=== PATIENT | male | born 1960 | race Caucasian/White ===

== ENCOUNTER 2025-08-25 02:48 | Inpatient (IN) | payer OTHER, SELFPAY ==
[2025-08-25] VITALS (95 sets, daily range): BP systolic 128–240; BP diastolic 74–141; PULSE 70–113; RESP 16–37; TEMP 36.7–37.5; O2SAT 83–100; BMI 26.4
--- NOTE | ~2025-08-25 | US_ITS ---
EXAMINATION: US perc cholecystostomy w imag DATE: 08/27/2025 12:47 INDICATION: Acute cholecystitis TECHNIQUE: The procedure including the risks and benefits was discussed with the patient. Risks discussed included bleeding including hemorrhage and bile peritonitis. Oral and written consent were obtained. The patient was confirmed to be receiving appropriate antibiotic coverage. The skin overlying the liver and gallbladder was prepped and draped in usual sterile fashion. Anesthetic was administered with 1% lidocaine subcutaneously. Conscious sedation was provided by the anesthesiology service. An 8.5 Fr catheter was inserted through liver parenchyma into the gallbladder by trocar technique. The metal stiffener and trocar needle were removed, and the pigtail tip was locked. Bile was aspirated and sent for culture. The catheter was stitched to the skin with suture. There were no immediate complications. FINDINGS: The gallbladder is dilated with wall thickening and stones and sludge, consistent with acute cholecystitis. Ultrasound images demonstrate the catheter within the gallbladder. 50 mL bile was aspirated. Final images show the formed pigtail catheter tip in the gallbladder. IMPRESSION: 1. Successful ultrasound-guided cholecystostomy tube placement. 2. 50 mL bile was sent for aerobic, anaerobic, and fungal cultures. 3. The catheter will be managed by Dr. Preston. A catheter cholangiogram may be performed not less than 48 hours after tube placement if clinically indicated to assess cystic duct patency. If cholecystectomy is not eventually performed and the infectious episode has resolved, the tube may be removed over a guidewire, preferably not less than 3 weeks after placement to allow time for a mature catheter tract to form to prevent bile leakage and peritonitis. Reviewed, dictated and finalized at location A. [employer]PA[employer] MAINTENANCE SUPERVISOR IMPRESSION: 1. Successful ultrasound-guided cholecystostomy tube placement. 2. 50 mL bile was sent for aerobic, anaerobic, and fungal cultures. 3. The catheter will be managed by Dr. Preston. A catheter cholangiogram may be p erformed not less than 48 hours after tube placement if clinically indicated to assess cystic duct patency. If cholecystectomy is not eventually performed an d the infectious episode has resolved, the tube may be removed over a guidewire , preferably not less than 3 weeks after placement to allow time for a mature c atheter tract to form to prevent bile leakage and peritonitis.
--- NOTE | ~2025-08-25 | XR_ITS ---
Examination: XR chest 1V portable Clinical History: abdominal pain Comparison: None Technique: Portable AP Findings: Cardiomegaly. Lungs clear. No acute bony abnormality. IMPRESSION: 1. No acute cardiopulmonary findings given portable technique. Reviewed, dictated and finalized at location R. Y MOBILE EQUIPMENT OPERATOR
--- NOTE | ~2025-08-25 | CT_ITS ---
CTA abdomen pelvis Clinical History: abdominal pain Technique: Helical images lung bases to pelvic outlet IV contrast information not listed in PACS Coronal, sagittal reformats. Multiplanar MIPS CT images acquired with automatic exposure control for dose reduction DLP: 501 mGy-cm Comparison: None Findings: CTA Findings: Abdominal aorta: No aneurysm or dissection. Common iliac arteries: Patent. External iliac arteries: Patent. Hypogastric arteries: Patent. CFAs: Patent. Proximal visualized SFAs and profundas: Patent. Celiac: Patent. SMA: Patent. BRENT: Patent. Renal arteries: Patent. Non-CTA findings: Lung bases: Clear. Visualized heart and pericardium: Enlarged. Liver: Steatosis. Gallbladder: Stones. Wall thickening. Spleen: Enlarged. Pancreas: Unremarkable. Adrenal glands: Unremarkable. Kidneys: Right kidney- No renal stones. No hydronephrosis. Left kidney- No renal stones. No hydronephrosis. Distal esophagus/stomach: Hiatal hernia. Apparent gastric wall thickening but under distended. Small bowel loops: Normal caliber and wall thickness. Fluid-filled loops, a few air-fluid levels. Colon: Rectal anastomotic line. Apparent areas of wall thickening but under distended. Normal RLQ appendix. Nodes: No enlarged nodes. Peritoneum: Small perihepatic ascites. No free air. Urinary bladder: Unremarkable. Prostate: Unremarkable. Bones: No acute bony abnormality. Soft tissues: Small umbilical hernia containing knuckle of small bowel. Small supraumbilical ventral hernia containing fat. IMPRESSION: 1. Worrisome for acute cholecystitis. 2. Suspect enterocolitis. 3. Suspect gastritis. 4. No evidence of active bleed. Reviewed, dictated and finalized at location R. CLOTHIER
--- NOTE | ~2025-08-25 | US_ITS ---
ULTRASOUND ABDOMEN LIMITED (RIGHT UPPER QUADRANT) Clinical History: cholecystitis Comparison: CTA abdomen and pelvis same day Technique: Right upper quadrant sonography Findings: Liver: Normal size. Normal echotexture. No intrahepatic biliary ductal dilatation. Normal hepatopedal flow main portal vein. Common Duct: Normal caliber. 5 mm. Gallbladder: Stones. Wall thickening. Pericholecystic fluid. Positive sonographic Mullins sign. Pancreas: Obscured by bowel gas. IMPRESSION: 1. Consistent with acute cholecystitis. Reviewed, dictated and finalized at location R. H WASHER
--- NOTE | 2025-08-25 03:40 | ECG_ITS ---
Test Date: 2025-08-25 04:27:52 Measurements Intervals [place] Rate: 103 P: 28 [place]: 151 QRS: 11 QRSD: 85 T: 62 QT: 324 QTc: 426 Interpretive Statements SINUS TACHYCARDIA CONSIDER ANTERIOR INFARCT, AGE INDETERMINATE BASELINE ARTIFACT- I, III, AVR, AVL, AVF, V4-V6 ABNORMAL ECG No previous ECG available for comparison Electronically Signed On 08-25-2025 06:06:58 SLP by Zach Pizarro D.O.
[2025-08-25 04:48] LABS: Hematocrit 54.9 % (42.0-52.0); Hemoglobin 19.9 g/dL (14.0-18.0); Immature Granulocyte Percent A 0.6 % (0-0.5); Immature Platelet Fraction Pct 1.5 % (0.9-11.2); Lymphocytes Absolute Auto 0.53 K/mm3 (0.9-3.2); Mean Corpuscular HGB Conc 36.2 g/dl (32-36); Mean Corpuscular Hemoglobin 32.0 pg (26-34); Mean Corpuscular Volume 88.4 fl (80-100); Nucleated Red Blood Cells Absolute Auto 0.000 K/mm3 (0.0-0.012); Nucleated Red Blood Cells Perc 0.0 % (0.0-0.2); Platelet Count Result 135 k/mm3 (150-375); Red Blood Count 6.21 M/mm3 (4.6-6.20); White Blood Count 6.6 K/mm3 (4.5-10.0)
[2025-08-25 04:57] LABS: Add Urine Microscopic? YES; Appearance Urine Clear (Clear); Glucose Urine UA Negative (Negative); Leukocyte Esterase Ur Negative LEU/UL (Negative); Nitrate Urine Negative (Negative); Non Pathogenic Casts 0-2; Specific Grav Ur 1.009 (1.001-1.035)
[2025-08-25 04:58] LABS: INR 1.0; Prothrombin Time 13.4 Seconds (11.1-14.7)
[2025-08-25 04:59] LABS: Partial Thromboplastin Time 27.9 Seconds (22.3-36.8)
[2025-08-25 05:02] LABS: Alanine Aminotransferase 28 U/L (6-50); Albumin Level 4.8 g/dL (3.5-5.1); Alkaline Phosphatase 110 U/L (38-126); Anion Gap 7 mmol/L (4-12); Aspartate Amino Transferase 35 U/L (17-59); Bilirubin,Total 4.3 mg/dL (0.2-1.3); Blood Urea Nitrogen 8 mg/dL (9-20); CRP 4.0 mg/dL (<1.0); Calcium 9.6 mg/dL (8.4-10.2); Carbon Dioxide 29 mmol/L (22-30); Chloride 96 mmol/L (98-107); Estimated Glomerular Filt Rate > 60; Glucose 118 mg/dL (65-110); Lipase 76 U/L (23-300); Magnesium 2.1 mg/dL (1.6-2.3); Potassium 4.4 mmol/L (3.4-5.0); Sodium 132 mmol/L (137-145); Total Protein 8.6 g/dL (6.3-8.2)
--- NOTE | 2025-08-25 05:29 | ED_ITS ---
HPI - Abdominal Pain General Chief Complaint: Abdominal Pain Stated Complaint: abd pain Time Seen by Provider: 08/25/25 05:19 Source: patient and family Mode of arrival: ambulatory Limitations: no limitations History of Present Illness HPI narrative: Patient is a 65-year-old male presents to the emergency department complaining of abdominal pain. Patient notes that the pain started yesterday around noon, about 1 hour after eating, right upper quadrant, constant, squeezing, radiates towards his back, has maybe a similar history of this in the past, was told was due to drinking. Has some diarrhea yesterday that is resolved today. Admits to nausea without any vomiting. Notes that he drinks about 12 beers daily. Admits to not drinking in the past and denies history of alcohol withdrawal. Notes that he has been taking e.d. pills for the past 3 days and has not taken his blood pressure medications for the past 3 days due to that and his blood pressures has been high. Denies any known fevers. Related Data Home Medications ?Medication ?Instructions ?Recorded ?Confirmed ?Last Taken ?Type losartan 100 mg tablet 100 mg PO DAILY 08/25/2505/12 Unknown History tadalafil 10 mg tablet (Cialis) 10 mg PO DAILY PRN sex ual activity 08/25/25 08/25/25 Unknown History Allergies Allergy/AdvReac Type Severity Reaction Status Date / Time No Known Allergies Allergy Verified 08/25/25 04:38 Review of Systems 2 Review of Systems: A 10 system review of systems was completed on the patient and is negative except for what is stated in the HPI. Nursing and ancillary documentation was reviewed. Exam 2 Narrative: CONST: No acute distress. Well nourished. HENMT: Head is normocephalic and atraumatic. Tacky mucous membranes. No posterior oropharynx erythema. EYES: No scleral icterus. No conjunctival injection or pallor. PERRL. NECK: No meningeal signs. RESP: Able to speak in full sentences. Normal respiratory effort. CTAB. CARDIO: Regular rate. Regular rhythm. 2+ DP and radial pulses bilaterally. GI: Nondistended. Moderate tenderness to palpation in the right upper quadrant, positive Mullins sign. No rebound or guarding or rigidity. Abdominal surgical scars.. Soft. : No CVA tenderness to palpation. SKIN: No rashes or lesions noted on exposed skin. NEURO: Oriented x3. Moves all extremities. No tremors. EXTREM/MSK/BACK: No pedal edema. PSYCH: Normal affect. Course Vital Signs Vital signs: Vital Signs Pulse Rate 107 H 08/25/25 04:24 Respiratory Rate 33 H 08/25/25 04:24 Pulse Oximetry 99 08/25/25 04:24 Temperature 98.0 F 08/25/25 04:34 Pulse Rate 100 08/25/25 07:20 Respiratory Rate 17 08/25/25 07:20 Blood Pressure 177/109 H 08/25/25 07:20 Pulse Oximetry 98 08/25/25 07:20 Oxygen Delivery Room Air 08/25/25 07:20 [facility] Narrative Medical decision making narrative: Patient presents with the above complaint. Initial vitals are remarkable for elevated blood pressure, tachycardia, tachypnea. Physical examination as noted above. Plan discussed: laboratory analysis, EKG, imaging. Patient ordered IVF, colonic on a phenobarbital, labetalol, Protonix, Zofran, continuous cardiac monitoring, continuous pulse oximetry. [facility] protocol ordered. NPO. I spoke with the hospitalist on-call who has accepted the patient for admission. I spoke with General surgery on-call who agrees with plan of care for antibiotics, admit to the hospitalist, will see the patient in consultation. I spoke with Gastroenterology on-call who will see the patient in consultation. Differential Diagnosis Differential Diagnosis: Cholecystitis, hepatobiliary pathology, pancreatitis, UTI, ureterolithiasis, bowel obstruction, mesenteric ischemia, AAA, ischemic colitis, enteritis, colitis, ACS, alcohol withdrawal, medication noncompliance. Lab Data [facility] Lab Attestation statement: I personally reviewed the patient's lab results. Lab results narrative: CBC reveals a hemoglobin of 19.9, platelet count 135. Coags are within normal limits. Comprehensive metabolic panel reveals a sodium 132, chloride 96, BUN of 8, glucose 118, total bilirubin of 4.3 with total protein of 8.6. Lipase is 76. Magnesium is 2.1. Lactic acid 1.7. Urinalysis reveals 2+ protein, 1+ ketones. Ethyl alcohol level is less than 10. 08/25/25 04:30 08/25/25 04:30 Labs: Lab Results 08/25/25 08/25/25 Range/Units 04:30 07:22 WBC 6.6 (4.5-10.0) K/mm3 RBC 6.21 H (4.6-6.20) M/mm3 Hgb 19.9 H (14.0-18.0) g/dL Hct 54.9 H (42.0-52.0) % MCV 88.4 (80-100) fl MCH 32.0 (26-34) pg MCHC 36.2 H (32-36) g/dl RDW 11.7 (11.5-14.5) % Plt Count 135 L (150-375) k/mm3 MPV 8.4 (7.4-10.4) fl Immature Gran % (Auto) 0.6 H (0-0.5) % Neut % (Auto) 84.9 H (45.5-73.1) % Lymph % (Auto) 8.0 L (18.3-44.2) % [place] % (Auto) 6.0 (2.6-8.5) % Eos % (Auto) 0.2 (0-4.4) % Baso % (Auto) 0.3 (0.2-1.2) % Lymph # (Auto) 0.53 L (0.9-3.2) K/mm3 [place] # (Auto) 0.4 (0.1-0.6) K/mm3 Eos # (Auto) 0.0 (0-0.3) K/mm3 Baso # (Auto) 0.0 (0.0-0.1) K/mm3 Abs Immat Gran (auto) 0.04 H (0.00-0.031) K/mm3 Absolute Neuts (auto) 5.6 (1.3-6.7) K/mm3 Absolute Nucleated RBC 0.000 (0.0-0.012) K/mm3 Nucleated RBC % 0.0 (0.0-0.2) % % Immature Plt Fraction 1.5 (0.9-11.2) % PT 13.4 (11.1-14.7) Seconds INR 1.0 APTT 27.9 (22.3-36.8) Seconds Sodium 132 L (137-145) mmol/L Potassium 4.4 (3.4-5.0) mmol/L Chloride 96 L (98-107) mmol/L Carbon Dioxide 29 (22-30) mmol/L Anion Gap 7 (4-12) mmol/L BUN 8 L (9-20) mg/dL Creatinine 1.11 (0.7-1.3) mg/dL Estim Creat Clear Calc Not Reportable Estimated GFR > 60 (59 - ) Glucose 118 H (65-110) mg/dL Lactic Acid 1.7 (0.7-2.0) mmol/L Calcium 9.6 (8.4-10.2) mg/dL Magnesium 2.1 (1.6-2.3) mg/dL Total Bilirubin 4.3 H (0.2-1.3) mg/dL AST 35 (17-59) U/L ALT 28 (6-50) U/L Alkaline Phosphatase 110 (38-126) U/L Troponin I 0.023 Pending (0.000-0.034) ng/mL C-Reactive Protein 4.0 H (<1.0) mg/dL Total Protein 8.6 H (6.3-8.2) g/dL Albumin 4.8 (3.5-5.1) g/dL Lipase 76 (23-300) U/L Urine Color Yellow (Yellow) Urine Appearance Clear (Clear) Urine pH 7.0 (5.0-9.0) Ur Specific [place] 1.009 (1.001-1.035) Urine Protein 2+ H (Negative) mg/dL Urine Glucose (UA) Negative (Negative) mg/dL Urine Ketones 1+ H (Negative) mg/dL Ur Blood (Man) Trace (Negative) Urine Nitrate Negative (Negative) Urine Bilirubin Negative (Negative) Urine Urobilinogen 0.2 (<2.0) mg/dL Leukocyte Esterase Rfl Negative (Negative) TOMASA/UL Urine RBC 0-2 (0-2) /hpf Urine WBC 0-5 (0-3) /hpf Ur Squamous Epith Cells None seen (Few) /hpf Urine Bacteria None seen /hpf Urine Casts 0-2 Ethyl Alcohol < 10 (<10) mg/dL Imaging Data Radiologist's impression: ITS Impressions Abdomen/Pelvis CTA 08/25/25 06:38 IMPRESSION: 1. Worrisome for acute cholecystitis. 2. Suspect enterocolitis. 3. Suspect gastritis. 4. No evidence of active bleed. Chest X-Ray 08/25/25 07:06 IMPRESSION: 1. No acute cardiopulmonary findings given portable technique. ECG Data EKG #1: Attestation: I personally reviewed and interpreted this ECG as follows: ECG completion date: 08/25/25 ECG completion time: 04:27 Interpretation: Rate of 103, rhythm is sinus tachycardia, axis is normal, Q-waves present in leads V1, V2, V3, no old EKG on file comparison. Discharge Plan Discharge Clinical Impression: Acute cholecystitis, Abdominal pain, Alcohol use disorder, Enterocolitis, Elevated bilirubin Patient Disposition: Still a Patient Condition: Stable Instructions: Antibiotic Form Patient Language: Amharic Prescriptions: No Action losartan 100 mg tablet 100 mg PO DAILY tadalafil [Cialis] 10 mg tablet 10 mg PO DAILY PRN (Reason: sexual activity) Rx Instructions: administer approximately 30min before sexual activity; do not use more than 1 dose per 24hrs Follow-up/Referrals: UNKNOWN,DOCTOR [Non-Staff] Time of Disposition: 07:53
[2025-08-25] MEDS: SODIUM CHLORIDE 0.9% IV 1,000 ML 150 ML IV CONT (05:54)
[2025-08-25] MEDS: PHENobarbitaL sodium (*CRX) 130 MG/ML VIAL 100 MG IV PUSH (05:56)
[2025-08-25] MEDS: HYDROmorphone HCL INJ (*CRX) 1 MG/ML SYR 0.2 MG IV PUSH (05:56)
[2025-08-25] MEDS: ONDANSETRON INJ 4 MG/2 ML VIAL IV PUSH (05:56)
[2025-08-25] MEDS: PANTOPRAZOLE SODIUM IV 40 MG VIAL IV PUSH ×2 (05:57→20:36)
--- NOTE | 2025-08-25 06:59 | PC.NURSE ---
Patient states I feel pretty good right now. ERP states can hold off on pain meds until patient needs them and to continue IV fluids at controlled rate via pump.
--- NOTE | 2025-08-25 07:06 | ECG_ITS ---
Test Date: 2025-08-25 07:12:48 Measurements Intervals [place] Rate: 81 P: 7 [place]: 150 QRS: -11 QRSD: 93 T: 62 QT: 365 QTc: 426 Interpretive Statements SINUS RHYTHM POSSIBLE ANTERIOR MYOCARDIAL INFARCTION , OF INDETERMINATE AGE INFERIOR INFARCT, AGE INDETERMINATE BASELINE ARTIFACT- I, II, AVR, AVL, AVF, V1 ABNORMAL ECG Compared to ECG 08/25/2025 04:27:52 HEART RATE HAS DECREASED Electronically Signed On 08-25-2025 07:51:56 [employer] by Zach Pizarro D.O.
[2025-08-25 07:19] LABS: Troponin I 0.023 ng/mL (0.000-0.034)
[2025-08-25 08:15] LABS: Troponin I 0.030 ng/mL (0.000-0.034)
[2025-08-25] MEDS: cefTRIAXone 1 GM in SODIUM CHLORIDE 0.9% IV 50 ML 100 ML IVPB (08:17)
--- NOTE | 2025-08-25 08:26 | P.CONGI_ITS ---
Assessment and Plan Assessment and plan (1) Abdominal pain: Qualifiers: Abdominal location: right upper quadrant Qualified Code(s): R10.11 - Right upper quadrant pain Code(s): R10.9 - Unspecified abdominal pain Status: Acute (2) Acute cholecystitis: Code(s): K81.0 - Acute cholecystitis Status: Acute (3) Enterocolitis: Code(s): K52.9 - Noninfective gastroenteritis and colitis, unspecified Status: Acute (4) Elevated bilirubin: Code(s): R17 - Unspecified jaundice Status: Acute (5) Alcohol use disorder: Code(s): F10.90 - Alcohol use, unspecified, uncomplicated Status: Acute (6) Thrombocytopenia: Code(s): D69.6 - Thrombocytopenia, unspecified Status: Acute (7) History of bowel resection: Code(s): Z90.49 - Acquired absence of other specified parts of digestive tract Status: Acute (8) Nausea: Code(s): R11.0 - Nausea Status: Acute (9) Hypertension: Qualifiers: Hypertension type: primary hypertension Qualified Code(s): I10 - Essential (primary) hypertension Code(s): I10 - Essential (primary) hypertension Status: Acute (10) Hepatic steatosis: Code(s): K76.0 - Fatty (change of) liver, not elsewhere classified Status: Acute Plan 1. RUQ pain/nausea/abnormal imaging digestive/gastritis/cholecystitis/cholelithiasis: Per patient last EGD > 10 years ago, endoscopy reports not available. CTA shows gallbladder stones and wall thickening and apparent gastric wall thickening but under distended. Patient states that he was told that he had gallstones a few years ago at which time a possible cholecystectomy was discussed but not performed. Patient with acute onset of right upper quadrant pain since yesterday. He describes the pain as sharp and colicky in nature. This pain increases with deep breaths or any type of movement. When pain is more severe he has nausea but no vomiting. Denies any swallowing difficulty reflux, appetite loss or weight loss prior to ER presentation. Patient uses Tylenol and Motrin alternated on a daily basis which she has done for many years. LFTs are normal except bilirubin at 4.3. DDX: Cholecystitis versus choledocholithiasis versus biliary colic versus peptic ulcer disease versus acute infectious/inflammatory process. * Given clinical presentation there is high suspicion for acute cholecystitis * Surgery already consulted for evaluation and recommendations for possible cholecystitis. Given his pain I am unsure if he would be able to tolerate a RUQ ultrasound may also consider MRCP. Will wait to see what surgeries recommendations are before proceeding with any additional imaging. * Primary care team to continue supportive care with pain management and antiemetics * Will start PPI daily for possible gastritis noted on imaging and EtOH abuse history. Findings however could be related to under distension * If not done during admission, recommend outpatient EGD * On antibiotics, continue 2. Enterocolitis/diarrhea/history of partial bowel resection: Per patient last colonoscopy > 20 years ago. He states that he had a partial bowel resection removing around 6 in in 2008 complicated diverticulitis. He states that he typically has daily bowel movements that are formed and non urgent but yesterday he had diarrhea, no BMs since ER presentation. CTA shows possible enterocolitis showing normal caliber and wall thickness and fluid-filled loops. DDX: Acute infectious/inflammatory process versus underdistention less likely inflammatory bowel disease. * Patient is already on antibiotics, continue * continue to monitor 3. Hepatic steatosis/elevated bilirubin/ETOH abuse/hyponatremia: Patient with a longstanding history of EtOH abuse stating that he typically drinks 10 12 oz beers daily and has been doing this for many years. LFTs normal except bilirubin at 4.3. WBC 7, HGB 20, HCT 55, MCV 88, platelets 135 and INR 1.0. Albumin 4.8, lipase 76 and CRP 4.0. Sodium 132, potassium 4.4, BUN 8, creatinine 1.11. ETOH level on admission < 10. CTA shows hepatic steatosis and small perihepatic ascites. Patient does not have any significant abdominal distension on exam. Mild jaundice scleral icterus. No obvious biliary or hepatic ductal dilation on imaging. DDX: ETOH abuse versus biliary obstruction versus Gilbert's versus underlying liver disease. * Continue to monitor LFT's * will check direct and indirect bilirubin * alcohol cessation strongly recommended * Further liver workup/monitoring to be done outpatient * Recommend see well precaution * Primary care team to continue monitoring electrolytes and correct as needed 4. Hypertension: Patient with a history of hypertension and was on losartan but states that he had not been taking it for few days as his blood pressure was ?doing okay?. He was recently prescribed Cialis which he had taken for 3 days prior to his admission. Patient with significant hypertension, at time of ER presentation BP was 236/129 and currently 191/112. * Primary care team to manage/treat Thank you very much for allowing me to share in the care of this very nice patient. This report may have been done utilizing a voice recognition system. Attempts have been made to correct errors. However, there may be uncorrected grammatical, spelling, and recognition errors present. GI Consult Note Consult date/time: 08/25/25 08:26 Reason for consult: Enterocolitis and elevated bilirubin HPI: Cristhian Marin Jr is a 65 year old male with PMSH of hypertension, partial bowel resection in 2008 secondary to diverticulitis, ETOH abuse, and ED but denies any other medical history. He was accompanied by his Jayna at his bedside throughout the entire visit. Patient states that yesterday he started having an acute onset of right upper quadrant pain that is sharp and severe at times. This pain presents and waves and is worse when he takes a deep breath or moves in any way. This pain can sometimes cause nausea but no vomiting. He denies any abdominal bloating, odynophagia, dysphagia, reflux, regurgitation, early satiety, appetite or weight loss prior to admission. Patient states that he typically has daily bowel movements that are formed non urgent but states that yesterday he was having some diarrhea. Denies constipation, hematochezia or melena. Patient alternates Motrin and Tylenol daily. He denies any other NSAID, aspirin, or anticoagulant use. He is a past smoker that quit many years ago and denies marijuana use but drinks on average 10 12 oz beers daily. Family history negative for CRC or IBD. ENDOSCOPY HISTORY: EGD: Per patient last EGD > 10 years ago was performed for dysphagia, results unknown COLONOSCOPY: Per patient last colonoscopy performed > 20 years ago LABS AND STOOL STUDIES: Labs 08/25/2025: Sodium 132, potassium 4.4, BUN 8, creatinine 1.11, GFR >60, calcium 9.6, lactic acid 1.7, magnesium 2.1 WBC 7, Hgb 20, Hct 55, MCV 88, platelets 135, INR 1.0 Total bilirubin 4.3, AST 35, ALT 28, Alkaline Phos 110, albumin 4.8, lipase 76 CRP 4.0, ETOH <10 IMAGING: CTA abd/pelvis 08/25/2025: IMPRESSION: 1. Worrisome for acute cholecystitis. 2. Suspect enterocolitis. 3. Suspect gastritis. 4. No evidence of active bleed. Also mentioned in body of report: small perihepatic ascites and hepatic steatosis Meds Home Medications and Allergies Home Medications ?Medication ?Instructions ?Recorded ?Confirmed ?Type losartan 100 mg tablet 100 mg PO DAILY 08/25/2505/12 History tadalafil 10 mg tablet (Cialis) 10 mg PO DAILY PRN sex ual activity 08/25/25 08/25/25 History Allergies Allergy/AdvReac Type Severity Reaction Status Date / Time No Known Allergies Allergy Verified 08/25/25 04:38 Vital Signs Vital Signs - 24 hr 08/25/25 04:24 08/25/25 04:25 08/25/25 04:30 Temperature Pulse Rate 107 H 109 H 102 H Respiratory Rate 33 H 21 H 24 H Blood Pressure 236/129 H Pulse Oximetry 99 99 98 Oxygen Delivery 08/25/25 04:31 08/25/25 04:34 08/25/25 04:45 Temperature 98.0 F Pulse Rate 113 H 70 87 Respiratory Rate 23 H 18 31 H Blood Pressure 231/141 H 231/110 H Pulse Oximetry 100 95 97 Oxygen Delivery Room Air 08/25/25 05:00 08/25/25 05:01 08/25/25 05:15 Temperature Pulse Rate 93 99 99 Respiratory Rate 25 H 23 H 29 H Blood Pressure 240/128 H Pulse Oximetry 98 100 Oxygen Delivery 08/25/25 05:30 08/25/25 05:32 08/25/25 05:45 Temperature Pulse Rate 95 102 H 95 Respiratory Rate 16 24 H 37 H Blood Pressure 222/139 H Pulse Oximetry 100 97 99 Oxygen Delivery 08/25/25 06:21 08/25/25 06:22 08/25/25 06:42 Temperature Pulse Rate 95 94 Respiratory Rate 30 H 31 H Blood Pressure 166/108 H 177/99 H Pulse Oximetry 98 97 Oxygen Delivery 08/25/25 07:20 08/25/25 08:19 Temperature 99 F Pulse Rate 100 89 Respiratory Rate 17 18 Blood Pressure 177/109 H 191/112 H Pulse Oximetry 98 98 Oxygen Delivery Room Air Results Labs 08/25/25 04:30 08/25/25 04:30 Labs: Short CBC 08/25/25 Range/Units 04:30 WBC 6.6 (4.5-10.0) K/mm3 Hgb 19.9 H (14.0-18.0) g/dL Hct 54.9 H (42.0-52.0) % Plt Count 135 L (150-375) k/mm3 BMP 08/25/25 04:30 Sodium 132 L Potassium 4.4 Chloride 96 L Carbon Dioxide 29 BUN 8 L Creatinine 1.11 Glucose 118 H Calcium 9.6 Cardiac Enzymes 08/25/25 08/25/25 Range/Units 04:30 07:22 Troponin I 0.023 0.030 D (0.000-0.034) ng/mL Liver Function 08/25/25 Range/Units 04:30 Total Bilirubin 4.3 H (0.2-1.3) mg/dL AST 35 (17-59) U/L ALT 28 (6-50) U/L Alkaline Phosphatase 110 (38-126) U/L Albumin 4.8 (3.5-5.1) g/dL Urine 08/25/25 Range/Units 04:30 Urine Color Yellow (Yellow) Urine Appearance Clear (Clear) Urine pH 7.0 (5.0-9.0) Ur Specific [place] 1.009 (1.001-1.035) Urine Protein 2+ H (Negative) mg/dL Urine Glucose (UA) Negative (Negative) mg/dL
[2025-08-25] MEDS: HYDROmorphone HCL INJ (*CRX) 1 MG/ML SYR 0.5 MG IV PUSH ×3 (10:11→21:14)
[2025-08-25] MEDS: metroNIDAZOLE 500 MG/ISO 100ML 500 MG/100 ML BAG 100 MG IVPB ×2 (10:56→19:00)
--- NOTE | 2025-08-25 12:04 | ADMGEN ---
This patient, Cristhian Marin Jr, was admitted to Virtual IMU Bed. Patient/family oriented to hospital policies and general routines including ID bracelet, bed and alarms, visiting hours, pain management, procedures, bathroom and other care routines, personal items, smoking policy, room service/diet, and visiting hours. Information on how to activate the Rapid Response Team has been discussed. Patient/Family are encouraged to report perceived risks to care and to ask questions if they do not understand what they are told or what they should do.
[2025-08-25] MEDS: diazePAM INJ (*CRX) 10 MG/2 ML SYRINGE IV PUSH ×2 (12:28→18:24)
--- NOTE | 2025-08-25 14:17 | P.CONGS_ITS ---
Assessment and Plan Assessment and plan (1) Acute cholecystitis: Code(s): K81.0 - Acute cholecystitis Status: Acute Assessment and Plan: * Patient presents with 3 days of RUQ abdominal pain. CT scan and ultrasound reviewed and showed findings of acute cholecystitis. He continues to have pain and is tender in the RUQ. His WBC count is normal, but his total bilirubin is 4.3. There are no findings of biliary dilatation on imaging. Will order an MRCP to evaluate for choledocholithiasis. I discussed treatment options with the patient in detail regarding his acute calculous cholecystitis, including both nonoperative and surgical treatment options. The patient would prefer to avoid surgery if at all possible. I discussed that he has a fairly large gallstone in his gallbladder and if his abdominal pain does not improve, then he will likely do poorly with conservative treatment, but we will continue to monitor. GI is also consulted and will plan further workup for liver disease as an outpatient. His alcohol abuse and possible liver disease could be contributing to the elevated bilirubin. Continue IV antibiotics for now. Will follow along with labs and serial abdominal exams, await MRCP results. (2) Elevated bilirubin: Code(s): R17 - Unspecified jaundice Status: Acute Assessment and Plan: * See plan above. GI following. Could be multiple etiologies, plan for further workup by GI as an outpatient. Will get MRCP to rule out choledocholithiasis. (3) Alcohol use disorder: Code(s): F10.90 - Alcohol use, unspecified, uncomplicated Status: Chronic Assessment and Plan: * Strongly encouraged cessation, which patient has been advised for in the past but has continued drinking. (4) Hypertension: Qualifiers: Hypertension type: primary hypertension Qualified Code(s): I10 - Essential (primary) hypertension Code(s): I10 - Essential (primary) hypertension Status: Chronic (5) Thrombocytopenia: Code(s): D69.6 - Thrombocytopenia, unspecified Status: Acute Assessment and Plan: * Platelets 135,000 on admission, repeat labs tomorrow (6) Hepatic steatosis: Code(s): K76.0 - Fatty (change of) liver, not elsewhere classified Status: Chronic (7) Enterocolitis: Code(s): K52.9 - Noninfective gastroenteritis and colitis, unspecified Status: Acute Assessment and Plan: * Reports having diarrhea that started after his abdominal pain. Could be related to his gallbladder, but will continue to monitor. (8) History of bowel resection: Code(s): Z90.49 - Acquired absence of other specified parts of digestive tract Status: Resolved Assessment and Plan: * Low anterior resection with colostomy in 2007 for acute perforated diverticulitis by Dr. More, with eventual laparoscopic colostomy takedown a few months later. Plan I have discussed the patient's case, recommendations, and treatment plan with Dr. Preston. History of Present Illness Consult details Consult date: 08/25/25 Reason for consult: other (Cholecystitis) Requesting physician: Natalie Duggan MD Narrative: This is a 65-year-old male with history of HTN and alcohol abuse, who we have been asked to see in surgical consultation for acute cholecystitis. He presented to the ED with complaints of RUQ abdominal pain x 2 days. He noticed RUQ pain after eating buffalo chicken wings on Monday for lunch. His pain became worse after eating fried fish at dinner time. He reports associated nausea and diarrhea, but no vomiting. No fever or chills. He has noticed intermittent RUQ pain in the past that was more mild and resolved spontaneously. He had been told in the past that this pain was related to his liver and his heavy drinking. He was recommended to stop drinking, but hasn't. He still consumes about 12 beers daily. He denies known history of liver disease, cirrhosis, or being told he had an elevated bilirubin. He has not been able to eat through the weekend due to his pain and the pain has kept him up at night. He then came into the ED for evaluation. BP was as high as 240/128 in the ER. He was mildly tachycardic and afebrile. His tachycardia has improved. Labs showed WBC count 6,600, platelets 135,000, coags normal, sodium 132, lactic acid 1.7, total bilirubin 4.3, indirect bilirubin 3.2 and other LFTs normal, lipase normal, troponin negative x 2. CTA abdomen and pelvis showed cholelithiasis, gallbladder wall thickening, findings concerning for acute cholecystitis, enterocolitis, possible gastritis. Chest x-ray negative. He was admitted and started on IV antibiotics. RUQ US this am showed findings of acute cholecystitis. No biliary dilatation or findings of choledocholithiasis on any imaging. He reports having some relief in his abdominal pain with the pain medication in the ER, but his pain gets worse as it wears off. He reports history of perforated diverticulitis in 2008 resulting in Woo's procedure, with eventual reversal and colostomy takedown. He has noticed a bulge at his incision and just left of his umbilicus, but has never had a hernia repair and denies any symptoms related to the bulge. Review of Systems 2 Review of Systems: All systems reviewed & are unremarkable except as noted in HPI and below PMFSH Past Medical History Medical History Alcohol use disorder Hypertension Surgical History Surgical History History of bowel resection Social History Social History Smoking status: Former smoker Tobacco type: cigarettes Second hand tobacco smoke exposure: No Smoking end date: 09/18/79 Alcohol intake: current Drinks per week: 70 Substance use: never Substance use type: does not use Lack of Transportation: No Lack of Food: Never True Current Housing: I Have Housing Concerned About Future Housing: No Difficulty Paying Gas/Electric Bills: No Difficulty Paying for Meds: No Currently Unemployed: No Education: High School Diploma/GED Difficulty w/ Childcare or Family Care: No Spiritual care concerns: No Meds Home Medications and Allergies Home Medications ?Medication ?Instructions ?Recorded ?Confirmed ?Type losartan 100 mg tablet 100 mg PO DAILY 08/25/2505/12 History tadalafil 10 mg tablet (Cialis) 10 mg PO DAILY PRN sex ual activity 08/25/25 08/25/25 History Allergies Allergy/AdvReac Type Severity Reaction Status Date / Time No Known Allergies Allergy Verified 08/25/25 11:54 Vital Signs Vital Signs - 24 hr 08/25/25 04:24 08/25/25 04:25 08/25/25 04:30 Temperature Pulse Rate 107 H 109 H 102 H Respiratory Rate 33 H 21 H 24 H Blood Pressure 236/129 H Pulse Oximetry 99 99 98 Oxygen Delivery 08/25/25 04:31 08/25/25 04:34 08/25/25 04:45 Temperature 98.0 F Pulse Rate 113 H 70 87 Respiratory Rate 23 H 18 31 H Blood Pressure 231/141 H 231/110 H Pulse Oximetry 100 95 97 Oxygen Delivery Room Air 08/25/25 05:00 08/25/25 05:01 08/25/25 05:15 Temperature Pulse Rate 93 99 99 Respiratory Rate 25 H 23 H 29 H Blood Pressure 240/128 H Pulse Oximetry 98 100 Oxygen Delivery 08/25/25 05:30 08/25/25 05:32 08/25/25 05:45 Temperature Pulse Rate 95 102 H 95 Respiratory Rate 16 24 H 37 H Blood Pressure 222/139 H Pulse Oximetry 100 97 99 Oxygen Delivery 08/25/25 06:21 08/25/25 06:22 08/25/25 06:42 Temperature Pulse Rate 95 94 Respiratory Rate 30 H 31 H Blood Pressure 166/108 H 177/99 H Pulse Oximetry 98 97 Oxygen Delivery 08/25/25 07:20 08/25/25 08:19 08/25/25 10:16 Temperature 99 F Pulse Rate 100 89 92 Respiratory Rate 17 18 23 H Blood Pressure 177/109 H 191/112 H 154/96 H Pulse Oximetry 98 98 98 Oxygen Delivery Room Air 08/25/25 11:02 08/25/25 12:00 08/25/25 12:20 Temperature Pulse Rate 84 85 85 Respiratory Rate 22 H 20 Blood Pressure 164/99 H 177/114 H Pulse Oximetry 97 96 Oxygen Delivery Exam 2 Const: General: comfortable and no acute distress Nutritional Appearance: a verage body habitus Orientation/consciousness: patient oriented x3 HENMT: Head: normocephalic and atraumatic Ears: hearing grossly normal bilaterally Mouth: Yes moist mucous membranes Eyes: General: appearance normal, both eyes and all related structures P upils: Equal, round and reactive pupils present Neck: Neck: normal visual inspection and full ROM Resp: Effort & Inspection: no respiratory distress Auscultation: clear to auscultation bilaterally Cardio: Rate: regular rate Rhythm: regular rhythm Heart sounds: Murmur heart sound present systolic GI: Inspection: non-distended GI Palp: Yes Soft to palpation, Yes Tenderness to palpation present (GI) (RUQ, positive Mullins's sign), Yes Guarding due to palpation present (GI) (RUQ), Yes Hernia present incisional (incisional hernia defect palpable at umbilicus and extending to the left with what feels like a separate defect in the LUQ) 3-10 cm and No Rebound tenderness present Auscultation: normal bowel sounds Rectal Exam: deferred Skin: General skin exam: jaundice Neuro: General: moves all extremities and no focal motor deficits Speech: n ormal speech Motor exam (neuro): 5/5 motor strength present throughout Extrem: General: normal to inspection and no edema Psych: Mental Status: mental status grossly normal Attitude: cooperative Insight: Good insight present (Psych) Judgement: Good judgement present (Psych) Results Labs 08/25/25 04:30 08/25/25 04:30 Labs: Abnormal lab results 08/25/25 08/25/25 08/25/25 Range/Units 04:30 11:01 13:36 RBC 6.21 H (4.6-6.20) M/mm3 Hgb 19.9 H (14.0-18.0) g/dL Hct 54.9 H (42.0-52.0) % MCHC 36.2 H (32-36) g/dl Plt Count 135 L (150-375) k/mm3 Immature Gran % (Auto) 0.6 H (0-0.5) % Neut % (Auto) 84.9 H (45.5-73.1) % Lymph % (Auto) 8.0 L (18.3-44.2) % Lymph # (Auto) 0.53 L (0.9-3.2) K/mm3 Abs Immat Gran (auto) 0.04 H (0.00-0.031) K/mm3 Sodium 132 L (137-145) mmol/L Chloride 96 L (98-107) mmol/L BUN 8 L (9-20) mg/dL Glucose 118 H (65-110) mg/dL POC Capillary Glucose 111 H 111 H (65-105) mg/dl Total Bilirubin 4.3 H (0.2-1.3) mg/dL Indirect Bilirubin 3.2 H (0-1.1) mg/dL C-Reactive Protein 4.0 H (<1.0) mg/dL Total Protein 8.6 H (6.3-8.2) g/dL Urine Protein 2+ H (Negative) mg/dL Urine Ketones 1+ H (Negative) mg/dL Diabetes panel 08/25/25 Range/Units 04:30 Sodium 132 L (137-145) mmol/L Potassium 4.4 (3.4-5.0) mmol/L Chloride 96 L (98-107) mmol/L Carbon Dioxide 29 (22-30) mmol/L BUN 8 L (9-20) mg/dL Creatinine 1.11 (0.7-1.3) mg/dL Glucose 118 H (65-110) mg/dL Calcium 9.6 (8.4-10.2) mg/dL AST 35 (17-59) U/L ALT 28 (6-50) U/L Alkaline Phosphatase 110 (38-126) U/L Total Protein 8.6 H (6.3-8.2) g/dL Albumin 4.8 (3.5-5.1) g/dL Calcium panel 08/25/25 Range/Units 04:30 Calcium 9.6 (8.4-10.2) mg/dL Albumin 4.8 (3.5-5.1) g/dL Pituitary panel 08/25/25 Range/Units 04:30 Sodium 132 L (137-145) mmol/L Potassium 4.4 (3.4-5.0) mmol/L Chloride 96 L (98-107) mmol/L Carbon Dioxide 29 (22-30) mmol/L BUN 8 L (9-20) mg/dL Creatinine 1.11 (0.7-1.3) mg/dL Glucose 118 H (65-110) mg/dL Calcium 9.6 (8.4-10.2) mg/dL Adrenal panel 08/25/25 Range/Units 04:30 Sodium 132 L (137-145) mmol/L Potassium 4.4 (3.4-5.0) mmol/L Chloride 96 L (98-107) mmol/L Carbon Dioxide 29 (22-30) mmol/L BUN 8 L (9-20) mg/dL Creatinine 1.11 (0.7-1.3) mg/dL Glucose 118 H (65-110) mg/dL Calcium 9.6 (8.4-10.2) mg/dL Total Bilirubin 4.3 H (0.2-1.3) mg/dL AST 35 (17-59) U/L ALT 28 (6-50) U/L Alkaline Phosphatase 110 (38-126) U/L Total Protein 8.6 H (6.3-8.2) g/dL Albumin 4.8 (3.5-5.1) g/dL All other labs normal. Imaging Additional studies: ITS Impressions Abdomen/Pelvis CTA 08/25/25 06:38 IMPRESSION: 1. Worrisome for acute cholecystitis. 2. Suspect enterocolitis. 3. Suspect gastritis. 4. No evidence of active bleed. Chest X-Ray 08/25/25 07:06 IMPRESSION: 1. No acute cardiopulmonary findings given portable technique. Upper Quadrant Ultrasound 08/25/25 11:18 IMPRESSION: 1. Consistent with acute cholecystitis.
--- NOTE | 2025-08-25 14:43 | PC.NURSE ---
Call to Dr. Duggan. Dr. Duggan made aware pt blood pressure 172/105 despite giving PRN labetalol at 1220. Pt not due for another dose at this time. Dr. Duggan will put in order for additional medication.
--- NOTE | 2025-08-25 16:13 | PM.IMHP2 ---
H&P: HPI History of Present Illness Date/Time: 08/25/25 16:13 Chief Complaint: Abdominal pain Narrative: 65-year-old gentleman with past medical history of alcohol use disorder, hypertension presented with right upper quadrant pain. Patient notes that the pain started yesterday around noon, about 1 hour after eating, right upper quadrant, constant, squeezing, radiates towards his back, has maybe a similar history of this in the past, was told was due to drinking. Has some diarrhea yesterday that is resolved today. Admits to nausea without any vomiting. Notes that he drinks about 12 beers daily. Denies any fever. CT abdomen pelvis showed possible acute cholecystitis, enterocolitis, gastritis. Noted to have elevated bilirubin. GI and General surgery were consulted Review of Systems Review of Systems: All systems reviewed & are unremarkable except as noted in HPI and below PMFSH Past Medical History Medical History Alcohol use disorder Hypertension Surgical History Surgical History History of bowel resection Social History Social History Smoking status: Former smoker Tobacco type: cigarettes Second hand tobacco smoke exposure: No Smoking end date: 09/18/79 Alcohol intake: current Drinks per week: 70 Substance use: never Substance use type: does not use Lack of Transportation: No Lack of Food: Never True Current Housing: I Have Housing Concerned About Future Housing: No Difficulty Paying Gas/Electric Bills: No Difficulty Paying for Meds: No Currently Unemployed: No Education: High School Diploma/GED Difficulty w/ Childcare or Family Care: No Spiritual care concerns: No Meds Home Medications and Allergies Home Medications ?Medication ?Instructions ?Recorded ?Confirmed ?Type losartan 100 mg tablet 100 mg PO DAILY 08/25/25 08/25/25 History tadalafil 10 mg tablet (Cialis) 10 mg PO DAILY PRN sexual activity 08/25/25 08/25/25 History Allergies Allergy/AdvReac Type Severity Reaction Status Date / Time No Known Allergies Allergy Verified 08/25/25 11:54 Vital Signs Vital Signs - 24 hr 08/25/25 04:24 08/25/25 04:25 08/25/25 04:30 Temperature Pulse Rate 107 H 109 H 102 H Respiratory Rate 33 H 21 H 24 H Blood Pressure 236/129 H Pulse Oximetry 99 99 98 Oxygen Delivery 08/25/25 04:31 08/25/25 04:34 08/25/25 04:45 Temperature 98.0 F Pulse Rate 113 H 70 87 Respiratory Rate 23 H 18 31 H Blood Pressure 231/141 H 231/110 H Pulse Oximetry 100 95 97 Oxygen Delivery Room Air 08/25/25 05:00 08/25/25 05:01 08/25/25 05:15 Temperature Pulse Rate 93 99 99 Respiratory Rate 25 H 23 H 29 H Blood Pressure 240/128 H Pulse Oximetry 98 100 Oxygen Delivery 08/25/25 05:30 08/25/25 05:32 08/25/25 05:45 Temperature Pulse Rate 95 102 H 95 Respiratory Rate 16 24 H 37 H Blood Pressure 222/139 H Pulse Oximetry 100 97 99 Oxygen Delivery 08/25/25 06:21 08/25/25 06:22 08/25/25 06:42 Temperature Pulse Rate 95 94 Respiratory Rate 30 H 31 H Blood Pressure 166/108 H 177/99 H Pulse Oximetry 98 97 Oxygen Delivery 08/25/25 07:20 08/25/25 08:19 08/25/25 10:16 Temperature 99 F Pulse Rate 100 89 92 Respiratory Rate 17 18 23 H Blood Pressure 177/109 H 191/112 H 154/96 H Pulse Oximetry 98 98 98 Oxygen Delivery Room Air 08/25/25 11:02 08/25/25 12:00 08/25/25 12:20 Temperature Pulse Rate 84 85 85 Respiratory Rate 22 H 20 Blood Pressure 164/99 H 177/114 H Pulse Oximetry 97 96 Oxygen Delivery 08/25/25 15:17 Temperature Pulse Rate 87 Respiratory Rate 22 H Blood Pressure 174/96 H Pulse Oximetry 97 Oxygen Delivery Exam Const: General: in distress and uncomfortable HENMT: Mouth: Yes dry mucous membranes Eyes: Sclera: scleral abnormality (Scleral icterus) Neck: Neck: supple Resp: Effort & Inspection: normal respiratory effort Auscultation: clear to auscultation bilaterally Cardio: Rate: regular rate Rhythm: regular rhythm Heart sounds: Murmur heart sound present GI: GI Palp: Yes Soft to palpation Other: Right upper quadrant, epigastric tenderness present Skin: General skin exam: normal color Neuro: Speech: normal speech Extrem: General: normal to inspection Psych: Mental Status: mental status grossly normal Results Labs Labs: Short CBC 08/25/25 Range/Units 04:30 WBC 6.6 (4.5-10.0) K/mm3 Hgb 19.9 H (14.0-18.0) g/dL Hct 54.9 H (42.0-52.0) % Plt Count 135 L (150-375) k/mm3 BMP 08/25/25 04:30 Sodium 132 L Potassium 4.4 Chloride 96 L Carbon Dioxide 29 BUN 8 L Creatinine 1.11 Glucose 118 H Calcium 9.6 Cardiac Enzymes 08/25/25 08/25/25 Range/Units 04:30 07:22 Troponin I 0.023 0.030 D (0.000-0.034) ng/mL Liver Function 08/25/25 Range/Units 04:30 Total Bilirubin 4.3 H (0.2-1.3) mg/dL AST 35 (17-59) U/L ALT 28 (6-50) U/L Alkaline Phosphatase 110 (38-126) U/L Albumin 4.8 (3.5-5.1) g/dL Urine 08/25/25 Range/Units 04:30 Urine Color Yellow (Yellow) Urine Appearance Clear (Clear) Urine pH 7.0 (5.0-9.0) Ur Specific [place] 1.009 (1.001-1.035) Urine Protein 2+ H (Negative) mg/dL Urine Glucose (UA) Negative (Negative) mg/dL Quality VTE Prophylaxis VTE prophylaxis: mechanical ordered Assessment and Plan Assessment and plan (1) Alcohol use disorder: Code(s): F10.90 - Alcohol use, unspecified, uncomplicated Status: Chronic (2) Hypertension: Qualifiers: Hypertension type: primary hypertension Qualified Code(s): I10 - Essential (primary) hypertension Code(s): I10 - Essential (primary) hypertension Status: Chronic (3) Thrombocytopenia: Code(s): D69.6 - Thrombocytopenia, unspecified Status: Acute (4) Acute cholecystitis: Code(s): K81.0 - Acute cholecystitis Status: Acute (5) Elevated bilirubin: Code(s): R17 - Unspecified jaundice Status: Acute (6) Hepatic steatosis: Code(s): K76.0 - Fatty (change of) liver, not elsewhere classified Status: Chronic (7) Enterocolitis: Code(s): K52.9 - Noninfective gastroenteritis and colitis, unspecified Status: Acute Plan 65-year-old male with past medical history of alcohol use disorder presenting with abdominal pain, initial workup suggestive of acute cholecystitis. 1. Abdominal pain: Initial workup suggestive of acute cholecystitis Elevated bilirubin, dilated biliary system on imaging, concern for choledocholithiasis Report quadrant ultrasound shows acute cholecystitis Admit to telemetry Medicine IV fluids NPO Pain control Obtain blood culture Will start on ceftriaxone, Flagyl General surgery and GI consulted Zofran p.r.n. Plan for MRCP At PPI IV 2. Alcohol use disorder: [facility] protocol IV folic acid, thiamine Diazepam p.r.n. per [facility] protocol Supplement lytes as needed 3. Hypertension: Hold oral medications from home P.r.n. labetalol and hydralazine to control blood pressure 4. Code status: Full 5. DVT prophylaxis: SCDs, anticipate surgical intervention soon 6. Disposition: Admit to telemetry medicine Time Spent with Patient Time with patient: 45 - 74 minutes Hospitalist MIPS Advance Care Plan I have confirmed that the patient's Advanced Care Plan is present, code status is documented, or surrogate decision maker is listed in patient medical record.: Yes Medication Reconciliation I have utilized all available resources to obtain, update and review the patients current medications (includes all prescriptions, OTC, herbals, cannabis, and nutritional supplements).: Yes
[2025-08-25] MEDS: SODIUM CHLORIDE 0.9% IV 1,000 ML 75 ML IV CONT ×2 (16:20→22:51)
--- NOTE | 2025-08-25 19:10 | PC.NURSE ---
Report given to JACQUELYN Tian
--- NOTE | 2025-08-25 21:40 | WPCEDHO ---
ED Hand Off Checklist All vitals saved:yes IV Site documented:yes All med administrations documented:yes Triage Note Triage Note Pt ambulatory to triage with c/o 08/25/25 04:34 abdominal pain. Agree with triage note. Patient states nausea but no vomiting and diarrhea yesterday. patient states pain is mostly on R side and gets worse when I have to pee. Patient states tender to abd on R upper quadrant. Allergies No Known Allergies Allergy (Verified 08/25/25 11:54) Current Diagnoses Thrombocytopenia, unspecified (08/25/25) Alcohol use, unspecified, uncomplicated (08/25/25) Essential (primary) hypertension (08/25/25) Noninfective gastroenteritis and colitis, unspecified (08/25/25) Fatty (change of) liver, not elsewhere classified (08/25/25) Acute cholecystitis (08/25/25) Right upper quadrant pain (08/25/25) Nausea (08/25/25) Unspecified jaundice (08/25/25) Acquired absence of other specified parts of digestive tract (08/25/25) Active Medications including assessments/comments Diazepam (Diazepam Inj (*Crx) 10 Mg/2 Ml Syringe) 10 mg IV PUSH Q6HR CAROLYN; Taper Stop: 08/29/25 11:59 Last Admin: 08/25/25 18:24 Dose: 10 mg Documented By: DOMONIQUE BUTLER CIWA Assessment Document 08/25/25 18:24 DOMONIQUE (Rec: 08/25/25 18:25 RENÉE [id number]) [facility] CIWA Assessment Reason for CIWA orders Administration Most Recent CIWA 3 Score Admin: 08/25/25 12:28 Dose: 10 mg Documented By: SAVANNA MAR CIWA Assessment Document 08/25/25 12:28 SAVANNA (Rec: 08/25/25 12:34 SRG [id number]) MAR CIWA Assessment Reason for scheduled Administration Most Recent CIWA 2 Score Hydromorphone HCl (Hydromorphone Hcl Inj (*Crx) 1 Mg/Ml Syr) 0.5 mg IV PUSH Q4H PRN PRN Reason: Pain Rated 7-10 Last Admin: 08/25/25 21:14 Dose: 0.5 mg Documented By: MISHA MAR Pain Assessment Document 08/25/25 21:14 LLG (Rec: 08/25/25 21:14 LLG [id number]) Pain Evaluation Pain Evaluation Assessment Pain Scale Pain Scale Used Numeric (1 - 10) Self Report Pain Assessment Reported Pain Level 8 Pain Score Pain Score 8: Self Report Admin: 08/25/25 16:11 Dose: 0.5 mg Documented By: SAVANNA [facility] Pain Assessment Document 08/25/25 16:11 SRG (Rec: 08/25/25 16:11 SRG [id number]) Pain Evaluation Pain Evaluation Assessment Pain Scale Pain Scale Used Numeric (1 - 10) Order Parameters Order Parameters for Pain Level 6-10 Administering this Pain Med Self Report Pain Assessment Reported Pain Level 10 Pain Location Abdomen Pain Description Sharp Pain Behaviors None Pain Score Pain Score 10: Self Report Re-Assess: [facility] Pain/Fever Reassessment Document 08/25/25 16:41 G (Rec: 08/25/25 18:56 SAVANNA [id number]) Reason for Administratin Reason for Pain Administration Pain Scale Pain Scale Used Numeric (1 - 10) Self Report Pain Assessment Reported Pain Level 4 Pain Score Pain Score 4: Self Report Admin: 08/25/25 10:11 Dose: 0.5 mg Documented By: CAROLYN [facility] Pain Assessment Document 08/25/25 10:11 KEMagen (Rec: 08/25/25 10:12 KED [id number]) Pain Evaluation Pain Evaluation Pre-Treatment Pain Scale Pain Scale Used Numeric (1 - 10) Self Report Pain Assessment Reported Pain Level 7 Pain Location Right,Upper Modifier Pain Location Abdomen Pain Description Sharp,With Movement Pain Frequency Acute Pain Score Pain Score 7: Self Report Re-Assess: [facility] Pain/Fever Reassessment Document 08/25/25 10:41 CAROLYN (Rec: 08/25/25 10:57 KED [id number]) Reason for Administratin Reason for Pain Administration Pain Scale Pain Scale Used Numeric (1 - 10) Self Report Pain Assessment Reported Pain Level 2 Pain Score Pain Score 2: Self Report Metronidazole (Flagyl 500 Mg/Iso Soln 100 Ml) 500 mg in 100 mls @ 100 mls/hr IVPB Q8H CAROLYN Last Admin: 08/25/25 19:00 Dose: 100 mls/hr Documented By: SAVANNA Infusion/Titration Document 08/25/25 19:00 SRG (Rec: 08/25/25 19:03 G [id number]) Intake IV Site Peripheral Access Left Antecubital Container Volume 100 Waste Amount 0 Dosing Infusion Rate 100 Increase/Decrease Started Elapsed Time Elapsed Time ( 0m minutes) Sodium Chloride (Normal Saline Iv) 1,000 mls @ 75 mls/hr IV CONT .[id number] [facility] Last Admin: 08/25/25 16:20 Dose: 75 mls/hr Documented By: SAVANNA Infusion/Titration Document 08/25/25 16:20 SRG (Rec: 08/25/25 16:20 SRG [id number]) Intake IV Site Peripheral Access Left Antecubital Container Volume 1,000 Waste Amount 0 Dosing Infusion Rate 75 Cumulative Dose Not Applicable Increase/Decrease Started Elapsed Time Elapsed Time ( 0m minutes) Labetalol HCl (Labetalol Hcl Inj 100 Mg/20 Ml Vial) 20 mg IV PUSH Q6HR PRN PRN Reason: for BP>160/90 Last Admin: 08/25/25 12:20 Dose: 20 mg Documented By: SAVANNA MAR Pulse Assessment Document 08/25/25 12:20 G (Rec: 08/25/25 12:29 SRG [id number]) Pulse Pulse Rate (60-100) 85 Rhythm Regular Pantoprazole Sodium (Pantoprazole Sodium Iv 40 Mg Vial) 40 mg IV PUSH Q12HR [facility] Last Admin: 08/25/25 20:36 Dose: 40 mg Documented By: MISHA Administered/Completed Medications Discontinued Medications Hydralazine HCl (Hydralazine Hcl 20 Mg/Ml Vial) 10 mg IV PUSH ONCE ONE Stop: 08/25/25 14:45 Last Admin: 08/25/25 15:16 Dose: 10 mg Documented By: SHEREEN Hydromorphone HCl (Hydromorphone Hcl Inj (*Crx) 1 Mg/Ml Syr) 0.2 mg IV PUSH ONCE STA Stop: 08/25/25 05:30 Last Admin: 08/25/25 05:56 Dose: 0.2 mg Documented By: GUILLE Hydromorphone HCl (Hydromorphone Hcl Inj (*Crx) 1 Mg/Ml Syr) 0.5 mg IV PUSH ONCE STA Stop: 08/25/25 06:45 Last Admin: 08/25/25 07:21 Dose: Not Given Documented By: CAROLYN Non-Admin Reason: No Dose Required Sodium Chloride (Normal Saline Iv) 1,000 mls @ 150 mls/hr IV CONT .Q6H40M STA Stop: 08/25/25 12:08 Last Infusion: 08/25/25 12:35 Dose: 0 mls/hr Documented By: Admin: 08/25/25 05:54 Dose: 150 mls/hr Documented By: GUILLE Sodium Chloride (Normal Saline Iv) 1,000 mls @ 999 mls/hr IV CONT .Q1H1M STA Stop: 08/25/25 07:44 Last Admin: 08/25/25 07:21 Dose: Not Given Documented By: CAROLYN Non-Admin Reason: No Dose Required Ceftriaxone Sodium 1 gm/ (Sodium Chloride) 50 mls @ 100 mls/hr IVPB ONCE STA Stop: 08/25/25 08:22 Last Infusion: 08/25/25 09:13 Dose: Infused Documented By: Admin: 08/25/25 08:17 Dose: 100 mls/hr Documented By: CAROLYN Metronidazole (Flagyl 500 Mg/Iso Soln 100 Ml) 500 mg in 100 mls @ 100 mls/hr IVPB ONCE ONE Stop: 08/25/25 11:34 Last Infusion: 08/25/25 12:00 Dose: Infused Documented By: Admin: 08/25/25 10:56 Dose: 100 mls/hr Documented By: CAROLYN Labetalol HCl (Labetalol Hcl Inj 100 Mg/20 Ml Vial) 20 mg IV PUSH ONCE ONE Stop: 08/25/25 05:30 Last Admin: 08/25/25 05:57 Dose: 20 mg Documented By: GUILLE Miscellaneous Information (Please Enter Patient Height And Weight For Medication Dosing) 1 each XX CLARIFY CAROLYN Stop: 09/24/25 00:00 Last Admin: 08/25/25 07:20 Dose: Not Given Documented By: CAROLYN Non-Admin Reason: done Ondansetron HCl (Ondansetron Inj 4 Mg/2 Ml Vial) 4 mg IV PUSH ONCE STA Stop: 08/25/25 05:30 Last Admin: 08/25/25 05:56 Dose: 4 mg Documented By: GUILLE Pantoprazole Sodium (Pantoprazole Sodium Iv 40 Mg Vial) 40 mg IV PUSH ONCE STA Stop: 08/25/25 05:30 Last Admin: 08/25/25 05:57 Dose: 40 mg Documented By: GUILLE Phenobarbital Sodium (Phenobarbital Sodium (*Crx) 130 Mg/Ml Vial) 100 mg IV PUSH ONCE ONE Stop: 08/25/25 05:30 Last Admin: 08/25/25 05:56 Dose: 100 mg Documented By: GUILLE Comments: Barcode not scanning. Thiamine HCl (Thiamine Hcl 200 Mg/2 Ml Vial) 100 mg IV PUSH ONCE ONE Stop: 08/25/25 06:44 Last Admin: 08/25/25 07:21 Dose: Not Given Documented By: CAROLYN Non-Admin Reason: No Dose Required Notes 08/25/25 19:10 (created 08/25/25 19:30) Nurse Note by Sherry Marie Report given to JACQUELYN Tian Initialized on 08/25/25 19:30 - END OF NOTE 08/25/25 14:43 (created 08/25/25 19:53) Nurse Note by Sherry Marie Call to Dr. Duggan. Dr. Duggan made aware pt blood pressure 172/105 despite giving PRN labetalol at 1220. Pt not due for another dose at this time. Dr. Duggan will put in order for additional medication. Initialized on 08/25/25 19:53 - END OF NOTE 08/25/25 12:04 General Admission Note by Saskia Fields This patient, Cristhian Marin Jr, was admitted to Virtual IMU Bed. Patient/family oriented to hospital policies and general routines including ID bracelet, bed and alarms, visiting hours, pain management, procedures, bathroom and other care routines, personal items, smoking policy, room service/diet, and visiting hours. Information on how to activate the Rapid Response Team has been discussed. Patient/Family are encouraged to report perceived risks to care and to ask questions if they do not understand what they are told or what they should do. Initialized on 08/25/25 12:04 - END OF NOTE 08/25/25 06:59 Nurse Note by Melanie Oreilly Patient states I feel pretty good right now. ERP states can hold off on pain meds until patient needs them and to continue IV fluids at controlled rate via pump. Initialized on 08/25/25 06:59 - END OF NOTE Interventions/Assessments IV / Saline Lock, Insert Start: 08/25/25 02:49 Freq: Status: Active Protocol: Document 08/25/25 05:54 [facility] (Rec: 08/25/25 05:54 [facility] [id number]) IV Assessment Peripheral Access Left Antecubital IV Catheter Access Initiated IV Insertion Date 08/25/25 IV Insertion Time 05:54 Catheter Gauge 18 IV Insertion 1 Attempts Ultrasound Used for No Placement IV Site Assessment WNL IV Care and WNL Maintenance PA: Gastrointestinal Assessment Start: 08/25/25 02:49 Freq: Status: Active Protocol: Document 08/25/25 12:15 SRG (Rec: 08/25/25 12:39 SRG [id number]) GI Assessment Gastrointestinal Diarrhea,Nausea,Pain Symptoms Description Soft,Tender All Quadrants Bowel Sounds Active Pattern Diarrhea Flatus Present Date of Last Bowel 08/24/25 Movement Nausea/Vomiting Assessment Nausea Frequency Intermittent Emesis Frequency None PA: Neurological Assessment Start: 08/25/25 10:58 Freq: Status: Active Protocol: Document 08/25/25 18:15 SRG (Rec: 08/25/25 19:05 SRG [id number]) Neurological Assessment Level of Alert,Awake Consciousness Arousable to Verbal Neurological None Symptoms Hallucination Type None Unable to Redirect No Behavior Behavior Cooperative Patient Able to Comprehend Comprehension Memory Description Intact Ability to Maintain Unable to Assess Balance Facial Symmetry Symmetrical Speech Pattern Clear Ability to Swallow Unable to Assess Tongue Position Midline Bilateral Arm(s) Extremity Movement Normal Description [place] Coma Scale Eyes Open Verbal Oriented and Alert Motor Follows Commands Deonte Coma Total 15 Score Last Vital Signs Temperature 99 F 08/25/25 08:19 Pulse Rate 108 H 08/25/25 21:31 Respiratory Rate 30 H 08/25/25 21:31 Pulse Oximetry 90 08/25/25 21:31 Blood Pressure 133/74 08/25/25 21:31 Blood Pressure Mean 91 08/25/25 21:31 Blood Pressure Position Sitting 08/25/25 15:17 Oxygen Delivery Room Air 08/25/25 07:20 Weight 83.6 kg 08/25/25 11:54 Last Result - Abnormals Only RBC 6.21 M/mm3 (4.6-6.20) H 08/25/25 04:30 Hgb 19.9 g/dL (14.0-18.0) H 08/25/25 04:30 Hct 54.9 % (42.0-52.0) H 08/25/25 04:30 MCHC 36.2 g/dl (32-36) H 08/25/25 04:30 Plt Count 135 k/mm3 (150-375) L 08/25/25 04:30 Immature Gran % (Auto) 0.6 % (0-0.5) H 08/25/25 04:30 Neut % (Auto) 84.9 % (45.5-73.1) H 08/25/25 04:30 Lymph % (Auto) 8.0 % (18.3-44.2) L 08/25/25 04:30 Lymph # (Auto) 0.53 K/mm3 (0.9-3.2) L 08/25/25 04:30 Abs Immat Gran (auto) 0.04 K/mm3 (0.00-0.031) H 08/25/25 04:30 Sodium 132 mmol/L (137-145) L 08/25/25 04:30 Chloride 96 mmol/L (98-107) L 08/25/25 04:30 BUN 8 mg/dL (9-20) L 08/25/25 04:30 Glucose 118 mg/dL (65-110) H 08/25/25 04:30 POC Capillary Glucose 123 mg/dl (65-105) H 08/25/25 20:08 Total Bilirubin 4.3 mg/dL (0.2-1.3) H 08/25/25 04:30 Indirect Bilirubin 3.2 mg/dL (0-1.1) H 08/25/25 04:30 C-Reactive Protein 4.0 mg/dL (<1.0) H 08/25/25 04:30 Total Protein 8.6 g/dL (6.3-8.2) H 08/25/25 04:30 Urine Protein 2+ mg/dL (Negative) H 08/25/25 04:30 Urine Ketones 1+ mg/dL (Negative) H 08/25/25 04:30 Most Recent CIWA Score CIWA Total Score 4 08/25/25 18:25 Most Recent Suicide Severity Rating Suicide Severity Rating NO RISK INDICATED 08/25/25 11:54
--- NOTE | 2025-08-25 22:21 | PC.NURSE ---
Received from ER. Family and belongings with patient. Assessment per flowsheet.
[2025-08-26] VITALS (16 sets, daily range): BP systolic 132–196; BP diastolic 70–111; PULSE 93–126; RESP 16–36; TEMP 36.8–38.3; O2SAT 90–94
[2025-08-26] MEDS: diazePAM INJ (*CRX) 10 MG/2 ML SYRINGE IV PUSH ×3 (00:45→14:31)
[2025-08-26] MEDS: metroNIDAZOLE 500 MG/ISO 100ML 500 MG/100 ML BAG 100 MG IVPB ×3 (02:27→17:47)
[2025-08-26 04:26] LABS: Hematocrit 54.1 % (42.0-52.0); Hemoglobin 18.8 g/dL (14.0-18.0); Immature Platelet Fraction Pct 1.4 % (0.9-11.2); Mean Corpuscular HGB Conc 34.8 g/dl (32-36); Mean Corpuscular Hemoglobin 31.8 pg (26-34); Mean Corpuscular Volume 91.5 fl (80-100); Platelet Count Result 123 k/mm3 (150-375); Red Blood Count 5.91 M/mm3 (4.6-6.20); White Blood Count 8.9 K/mm3 (4.5-10.0)
[2025-08-26] MEDS: HYDROmorphone HCL INJ (*CRX) 1 MG/ML SYR 0.5 MG IV PUSH ×3 (04:45→20:10)
[2025-08-26 04:53] LABS: Alanine Aminotransferase 26 U/L (6-50); Albumin Level 4.1 g/dL (3.5-5.1); Alkaline Phosphatase 82 U/L (38-126); Anion Gap 9 mmol/L (4-12); Aspartate Amino Transferase 28 U/L (17-59); Bilirubin,Total 4.3 mg/dL (0.2-1.3); Blood Urea Nitrogen 12 mg/dL (9-20); Calcium 9.2 mg/dL (8.4-10.2); Carbon Dioxide 25 mmol/L (22-30); Chloride 97 mmol/L (98-107); Estimated CRCL calculation 56 ml/min; Estimated Glomerular Filt Rate 60; Glucose 119 mg/dL (65-110); Lipase 45 U/L (23-300); Magnesium 2.2 mg/dL (1.6-2.3); Potassium 4.4 mmol/L (3.4-5.0); Sodium 131 mmol/L (137-145); Total Protein 7.4 g/dL (6.3-8.2)
[2025-08-26] MEDS: PANTOPRAZOLE SODIUM IV 40 MG VIAL IV PUSH ×2 (09:01→20:11)
[2025-08-26] MEDS: THIAMINE HCL 200 MG/2 ML VIAL 100 MG IV PUSH (09:02)
[2025-08-26] MEDS: cefTRIAXone 1 GM in SODIUM CHLORIDE 0.9% IV 50 ML 100 ML IVPB (09:15)
[2025-08-26] MEDS: FOLIC ACID 1 MG/0.2 ML INJ IV PUSH (10:01)
--- NOTE | 2025-08-26 10:38 | P.PNIM_ITS ---
Assessment and Plan Assessment and Plan (1) Acute cholecystitis: Code(s): K81.0 - Acute cholecystitis Status: Acute Assessment and Plan: Initial workup suggestive of acute cholecystitis, Elevated bilirubin, dilated biliary system on imaging, concern for choledocholithiasis, Report quadrant ultrasound shows acute cholecystitis * Surgery and GI consulted * IV fluids * NPO * Pain control IV Dilaudid * Obtain blood NGTD * IV ceftriaxone, Flagyl * Zofran p.r.n. * Plan for MRCP * IV PPI (2) Alcohol use disorder: Code(s): F10.90 - Alcohol use, unspecified, uncomplicated Status: Chronic Assessment and Plan: Patient with HX of ETOH abuse last drink was reported on Monday night 3 days ago. Denies ever having withdrawal symptoms in the past * Thiamine, folic acid, and multi-vitamin * PPI daily * Diazepam * Ativan PRN for seizure activity * CIWA daily * Monitor and replenish electrolytes as needed * Seizure precautions if indicated (3) Hypertension: Qualifiers: Hypertension type: primary hypertension Qualified Code(s): I10 - Essential (primary) hypertension Code(s): I10 - Essential (primary) hypertension Status: Chronic Assessment and Plan: patient with history of hypertension takes losartan at home however currently NPO is hypertensive * scheduled IV hydralazine while NPO * IV hydralazine as needed for systolic over 180 * monitor BP per unit protocol (4) Thrombocytopenia: Code(s): D69.6 - Thrombocytopenia, unspecified Status: Acute Assessment and Plan: likely secondary to current infection and alcohol abuse * trend platelets * no evidence of active bleed (5) Elevated bilirubin: Code(s): R17 - Unspecified jaundice Status: Acute Assessment and Plan: acute cholecystitis * GI consulted * [facility] today 07/27/2025 * NPO (6) Hepatic steatosis: Code(s): K76.0 - Fatty (change of) liver, not elsewhere classified Status: Chronic Assessment and Plan: * lipid panel pending (7) Enterocolitis: Code(s): K52.9 - Noninfective gastroenteritis and colitis, unspecified Status: Acute Assessment and Plan: CT abdomen suggestive colitis * IV Rocephin and Flagyl * IV fluids Plan Code status: Full code per patient DVT prophylaxis: SCD's Stress ulcer prophylaxis: Protonix 40 daily PT/OT notes: NA Disposition: Patient continues admission for further evaluation of cholecystitis with consult to General surgery and GI MRCP pending for today. Patient also has history of alcohol abuse continue to monitor for alcohol withdrawal patient ambulatory and plan will be to return home at discharge when medically stable. Consultations Consultations: I have discussed the care of this pt with the consulting providers. Time Spent With Patient Time with patient: 15 - 25 minutes Subjective Date/time seen: 08/26/25 10:38 Interval history: Patient is a 65-year-old male who was admitted for acute cholecystitis ETOH abuse with consult to General surgery and GI. 08/26/2025: Assumed Care Patient continues with right ABD pain, mild tremors noted. Patient denied SOB, CP, N/V at time of visit. Review of Systems Review of Systems: All systems reviewed & are unremarkable except as noted in HPI and below Exam Const: General: no acute distress and uncomfortable HENMT: Mouth: Yes dry mucous membranes Eyes: General: appearance normal, both eyes and all related structures Sclera: scleral abnormality (Scleral icterus) Neck: Neck: supple Resp: Effort & Inspection: normal respiratory effort Auscultation: clear to auscultation bilaterally Cardio: Rate: regular rate Rhythm: regular rhythm Heart sounds: Murmur heart sound present GI: Other: Right upper quadrant, epigastric tenderness present Skin: General skin exam: normal color Neuro: Speech: normal speech Extrem: General: normal to inspection Psych: Mental Status: mental status grossly normal Objective Data Vital Signs Vital Signs: Vital Signs - 24 hr 08/25/25 10:45 08/25/25 11:00 08/25/25 11:00 Temperature Pulse Rate 89 86 87 Respiratory Rate 19 30 H 20 Blood Pressure 164/99 H Pulse Oximetry 96 93 95 08/25/25 11:01 08/25/25 11:02 08/25/25 11:15 Temperature Pulse Rate 80 84 89 Respiratory Rate 25 H 22 H 19 Blood Pressure 164/99 H 164/99 H Pulse Oximetry 99 97 08/25/25 11:30 08/25/25 11:33 08/25/25 11:35 Temperature Pulse Rate 77 87 88 Respiratory Rate 23 H 20 25 H Blood Pressure 178/104 H 178/104 H Pulse Oximetry 99 97 97 08/25/25 11:45 08/25/25 12:00 08/25/25 12:00 Temperature Pulse Rate 93 85 92 Respiratory Rate 22 H 20 31 H Blood Pressure 177/114 H Pulse Oximetry 99 96 100 08/25/25 12:01 08/25/25 12:15 08/25/25 12:20 Temperature Pulse Rate 84 81 85 Respiratory Rate 27 H 23 H Blood Pressure 177/114 H Pulse Oximetry 95 95 08/25/25 12:30 08/25/25 12:30 08/25/25 12:31 Temperature Pulse Rate 90 84 85 Respiratory Rate 25 H 20 27 H Blood Pressure 170/107 H 170/107 H Pulse Oximetry 94 95 94 08/25/25 12:45 08/25/25 13:00 08/25/25 13:00 Temperature Pulse Rate 82 82 82 Respiratory Rate 28 H 30 H 20 Blood Pressure 153/86 H Pulse Oximetry 94 94 93 08/25/25 13:01 08/25/25 13:15 08/25/25 13:56 Temperature Pulse Rate 82 79 91 Respiratory Rate 27 H 31 H 22 H Blood Pressure 153/86 H Pulse Oximetry 95 96 08/25/25 14:00 08/25/25 14:01 08/25/25 14:15 Temperature Pulse Rate 77 77 75 Respiratory Rate 32 H 32 H 32 H Blood Pressure 187/102 H Pulse Oximetry 98 98 100 08/25/25 14:18 08/25/25 14:20 08/25/25 14:30 Temperature Pulse Rate 75 77 77 Respiratory Rate 20 28 H 27 H Blood Pressure 172/105 H 172/105 H Pulse Oximetry 97 95 95 08/25/25 14:30 08/25/25 14:31 08/25/25 14:45 Temperature Pulse Rate 79 77 80 Respiratory Rate 22 H 24 H 24 H Blood Pressure 166/98 H 166/98 H Pulse Oximetry 95 94 08/25/25 15:00 08/25/25 15:15 08/25/25 15:16 Temperature Pulse Rate 107 H 88 91 Respiratory Rate 29 H 25 H 27 H Blood Pressure 174/96 H Pulse Oximetry 88 L 83 L 08/25/25 15:17 08/25/25 15:30 12/08/25 15:31 Temperature Pulse Rate 87 87 87 Respiratory Rate 22 H 16 34 H Blood Pressure 174/96 H 146/90 H Pulse Oximetry 97 96 96 08/25/25 15:45 08/25/25 16:00 08/25/25 16:02 Temperature Pulse Rate 87 104 H 103 H Respiratory Rate 28 H 22 H 28 H Blood Pressure 143/96 H Pulse Oximetry 96 98 08/25/25 16:15 08/25/25 16:30 08/25/25 16:31 Temperature Pulse Rate 98 101 H 98 Respiratory Rate 31 H 29 H 28 H Blood Pressure 128/81 Pulse Oximetry 98 95 94 08/25/25 16:45 08/25/25 17:00 08/25/25 17:01 Temperature Pulse Rate 93 89 94 Respiratory Rate 29 H 29 H 27 H Blood Pressure 134/84 Pulse Oximetry 97 98 99 08/25/25 17:15 08/25/25 17:30 08/25/25 17:32 Temperature Pulse Rate 92 107 H 93 Respiratory Rate 29 H 17 27 H Blood Pressure 160/98 H Pulse Oximetry 100 94 08/25/25 17:45 08/25/25 18:00 08/25/25 18:01 Temperature Pulse Rate 96 94 95 Respiratory Rate 34 H 31 H 31 H Blood Pressure 134/90 Pulse Oximetry 93 93 93 08/25/25 18:15 08/25/25 18:30 08/25/25 18:31 Temperature Pulse Rate 101 H 99 96 Respiratory Rate 24 H 30 H 33 H Blood Pressure 156/85 H Pulse Oximetry 95 08/25/25 18:45 08/25/25 19:00 08/25/25 19:00 Temperature Pulse Rate 97 97 95 Respiratory Rate 32 H 20 32 H Blood Pressure 129/88 Pulse Oximetry 95 08/25/25 19:01 08/25/25 19:15 08/25/25 19:30 Temperature Pulse Rate 93 93 96 Respiratory Rate 31 H 32 H 27 H Blood Pressure 129/88 Pulse Oximetry 94 97 08/25/25 19:31 08/25/25 19:45 08/25/25 20:00 Temperature Pulse Rate 95 104 H 100 Respiratory Rate 31 H 23 H 26 H Blood Pressure 162/90 H Pulse Oximetry 94 93 95 08/25/25 20:01 08/25/25 20:15 08/25/25 20:30 Temperature Pulse Rate 106 H 100 98 Respiratory Rate 28 H 32 H 33 H Blood Pressure 168/89 H Pulse Oximetry 93 93 08/25/25 20:31 08/25/25 20:45 08/25/25 21:00 Temperature Pulse Rate 96 104 H 105 H Respiratory Rate 32 H 29 H 25 H Blood Pressure 160/92 H Pulse Oximetry 92 96 93 08/25/25 21:01 08/25/25 21:15 08/25/25 21:30 Temperature Pulse Rate 106 H 102 H 109 H Respiratory Rate 30 H 35 H 26 H Blood Pressure 168/106 H Pulse Oximetry 96 93 88 L 08/25/25 21:31 08/25/25 22:10 08/25/25 22:30 Temperature 99.5 F Pulse Rate 108 H 92 101 H Respiratory Rate 30 H 20 Blood Pressure 133/74 159/88 H Pulse Oximetry 90 93 08/26/25 00:00 08/26/25 00:00 08/26/25 02:46 Temperature 98.9 F Pulse Rate 94 93 123 H Respiratory Rate 20 Blood Pressure 182/99 H Pulse Oximetry 94 08/26/25 04:00 08/26/25 04:00 08/26/25 06:00 Temperature 99.1 F Pulse Rate 100 114 H 102 H Respiratory Rate 16 Blood Pressure 152/81 H Pulse Oximetry 91 08/26/25 08:00 08/26/25 08:53 08/26/25 09:05 Temperature 100.3 F H Pulse Rate 107 H 118 H Respiratory Rate 18 Blood Pressure 196/103 H 191/109 H Pulse Oximetry 91 08/26/25 10:11 Temperature Pulse Rate Respiratory Rate Blood Pressure 196/111 H Pulse Oximetry Intake/Output Intake/Output: Intake & Output 08/23/25 08/24/25 08/25/25 08/26/25 23:59 23:59 23:59 23:59 Intake Total 1308.8 350 Output Total 300 Balance 1308.8 50 Meds/Results Medications: Active Medications Generic Name Dose Route Start Last Admin Trade Name Freq PRN Reason Stop Dose Admin Diazepam 5 - 10 mg 08/25/25 10:25 Diazepam Inj (*Crx) 10 Mg/2 Ml Syringe IV PUSH Q5M PRN CIWA > 15 Diazepam 10 mg 08/25/25 12:00 08/26/25 06:53 Diazepam Inj (*Crx) 10 Mg/2 Ml Syringe IV PUSH 08/29/25 11:59 10 mg Q6HR CAROLYN Administration Taper Folic Acid 1 mg 08/26/25 09:00 08/26/25 10:01 Folic Acid 1 Mg/0.2 Ml Inj IV PUSH 1 mg DAILY CAROLYN Administration Hydralazine HCl 20 mg 08/26/25 10:36 Hydralazine Hcl 20 Mg/Ml Vial IV PUSH Q8H PRN Blood Pressure - High Hydralazine HCl 10 mg 08/26/25 11:00 Hydralazine Hcl 20 Mg/Ml Vial IV PUSH Q8H CAROLYN Hydromorphone HCl 0.5 mg 08/25/25 07:53 08/26/25 04:45 Hydromorphone Hcl Inj (*Crx) 1 Mg/Ml Syr IV PUSH 0.5 mg Q4H PRN Administration Pain Rated 7-10 Ceftriaxone Sodium 1 gm/ 50 mls @ 100 mls/hr 08/26/25 09:00 08/26/25 10:10 Sodium Chloride IVPB Infused Q24H CAROLYN Infusion Metronidazole 500 mg in 100 mls @ 100 mls/hr 08/25/25 18:00 08/26/25 10:01 Flagyl 500 Mg/Iso Soln 100 Ml IVPB 100 mls/hr Q8H CAROLYN Administration Sodium Chloride 1,000 mls @ 75 mls/hr 08/25/25 16:15 08/25/25 22:51 Normal Saline Iv IV CONT 75 mls/hr .[id number] CAROLYN Administration Ondansetron HCl 4 mg 08/25/25 10:22 Ondansetron Inj 4 Mg/2 Ml Vial IV PUSH Q4HR PRN nausea/vominting Pantoprazole Sodium 40 mg 08/25/25 21:00 08/26/25 09:01 Pantoprazole Sodium Iv 40 Mg Vial IV PUSH 40 mg Q12HR CAROLYN Administration Thiamine HCl 100 mg 08/26/25 09:00 08/26/25 09:02 Thiamine Hcl 200 Mg/2 Ml Vial IV PUSH 100 mg DAILY CAROLYN Administration Radiology Results: ITS Impressions Abdomen/Pelvis CTA 08/25/25 06:38 IMPRESSION: 1. Worrisome for acute cholecystitis. 2. Suspect enterocolitis. 3. Suspect gastritis. 4. No evidence of active bleed. Chest X-Ray 08/25/25 07:06 IMPRESSION: 1. No acute cardiopulmonary findings given portable technique. Upper Quadrant Ultrasound 08/25/25 11:18 IMPRESSION: 1. Consistent with acute cholecystitis. Labs Labs: Laboratory Results - last 24 hr 08/25/25 08/25/25 08/25/25 11:01 13:36 20:08 WBC RBC Hgb Hct MCV MCH MCHC RDW Plt Count MPV % Immature Plt Fraction Sodium Potassium Chloride Carbon Dioxide Anion Gap BUN Creatinine Estim Creat Clear Calc Estimated GFR Glucose POC Capillary Glucose 111 H 111 H 123 H Calcium Magnesium Total Bilirubin AST ALT Alkaline Phosphatase Total Protein Albumin Lipase 08/26/25 08/26/25 00:07 04:10 WBC 8.9 RBC 5.91 Hgb 18.8 H Hct 54.1 H MCV 91.5 MCH 31.8 MCHC 34.8 RDW 11.8 Plt Count 123 L MPV 8.6 % Immature Plt Fraction 1.4 Sodium 131 L Potassium 4.4 Chloride 97 L Carbon Dioxide 25 Anion Gap 9 BUN 12 Creatinine 1.22 Estim Creat Clear Calc 56 Estimated GFR 60 Glucose 119 H POC Capillary Glucose 141 H Calcium 9.2 Magnesium 2.2 Total Bilirubin 4.3 H AST 28 ALT 26 Alkaline Phosphatase 82 Total Protein 7.4 Albumin 4.1 Lipase 45 Attestation: I personally reviewed all lab results Quality VTE Prophylaxis VTE prophylaxis: mechanical ordered -Patient's previous records reviewed on admission -ER notes reviewed in detail on admission -discussed all findings and current treatment plan with patient/Family/POA -Consultations reviewed for recommendations -Patient's disposition for safe discharge discussed with case specialist -radiology imaging, EKG and test results I have personally reviewed and interpreted unless otherwise specified Dictation performed by [employer] direct speech recognition software, therefore car pincher variants and typographical errors may occur. Hospitalist MIPS Advance Care Plan I have confirmed that the patient's Advanced Care Plan is present, code status is documented, or surrogate decision maker is listed in patient medical record.: Yes Medication Reconciliation I have utilized all available resources to obtain, update and review the patients current medications (includes all prescriptions, OTC, herbals, cannabis, and nutritional supplements).: Yes The patient is not eligible for med reconciliation; the patient is in a emergent medical situation where delaying treatment would jeopardize the patients health.: No
[2025-08-26 11:05] LABS: Cholesterol 130 mg/dL (0-200); HDL Direct 40 mg/dL; Triglycerides 66 mg/dL (<150)
--- NOTE | 2025-08-26 12:27 | P.PNGS_ITS ---
Progress Note: A&P Assessment and Plan (1) Acute cholecystitis: Code(s): K81.0 - Acute cholecystitis Status: Acute Assessment and Plan: * Patient's abdominal pain better from yesterday. WBC normal, bilirubin still elevated at 4.3. All other liver enzymes normal. * Awaiting MRCP. Will plan surgical intervention vs ERCP according to results. * Continue ceftriaxone and flagyl. (2) Elevated bilirubin: Code(s): R17 - Unspecified jaundice Status: Acute Assessment and Plan: * See plan above. GI following. Could be multiple etiologies, plan for further workup by GI as an outpatient.MRCP scheduled for today. (3) Alcohol use disorder: Code(s): F10.90 - Alcohol use, unspecified, uncomplicated Status: Chronic Assessment and Plan: * Strongly encouraged cessation, which patient has been advised for in the past but has continued drinking. (4) Hypertension: Qualifiers: Hypertension type: primary hypertension Qualified Code(s): I10 - Essential (primary) hypertension Code(s): I10 - Essential (primary) hypertension Status: Chronic (5) Thrombocytopenia: Code(s): D69.6 - Thrombocytopenia, unspecified Status: Acute Assessment and Plan: * Platelets 135,000 on admission, now down to 123,000. Continue to monitor. (6) Hepatic steatosis: Code(s): K76.0 - Fatty (change of) liver, not elsewhere classified Status: Chronic (7) Enterocolitis: Code(s): K52.9 - Noninfective gastroenteritis and colitis, unspecified Status: Acute (8) History of bowel resection: Code(s): Z90.49 - Acquired absence of other specified parts of digestive tract Status: Resolved Assessment and Plan: * Low anterior resection with colostomy in 2007 for acute perforated diverticulitis by Dr. More, with eventual laparoscopic colostomy takedown a few months later. Plan I have discussed the patient's case, recommendations, and treatment plan with Dr. Preston. Subjective Subjective Date/Time Seen: 08/26/25 12:27 Patient reports: no new complaints, feels better, still having pain, no bowel movement and afebrile Interval history: Patient states that pain is a little less than yesterday. Has not had anything to eat or had a bowel movement a few days. Exam Const: General: comfortable, no acute distress and average body habitus Nutritional Appearance: average body habitus Orientation/consciousness: patient oriented x3 Eyes: Other: Jaundice GI: Inspection: non-distended GI Palp: Yes Soft to palpation, Yes Tenderness to palpation present (GI) (minimal RUQ) and No Guarding due to palpation present (GI) Auscultation: abnormal bowel sounds (hypoactive) Skin: General skin exam: normal color and jaundice Objective Data Vital Signs Vital Signs: Vital Signs - 24 hr 08/25/25 12:30 08/25/25 12:30 08/25/25 12:31 Temperature Pulse Rate 90 84 85 Respiratory Rate 25 H 20 27 H Blood Pressure 170/107 H 170/107 H Pulse Oximetry 94 95 94 08/25/25 12:45 08/25/25 13:00 08/25/25 13:00 Temperature Pulse Rate 82 82 82 Respiratory Rate 28 H 30 H 20 Blood Pressure 153/86 H Pulse Oximetry 94 94 93 08/25/25 13:01 08/25/25 13:15 08/25/25 13:56 Temperature Pulse Rate 82 79 91 Respiratory Rate 27 H 31 H 22 H Blood Pressure 153/86 H Pulse Oximetry 95 96 08/25/25 14:00 08/25/25 14:01 08/25/25 14:15 Temperature Pulse Rate 77 77 75 Respiratory Rate 32 H 32 H 32 H Blood Pressure 187/102 H Pulse Oximetry 98 98 100 08/25/25 14:18 08/25/25 14:20 08/25/25 14:30 Temperature Pulse Rate 75 77 77 Respiratory Rate 20 28 H 27 H Blood Pressure 172/105 H 172/105 H Pulse Oximetry 97 95 95 08/25/25 14:30 08/25/25 14:31 08/25/25 14:45 Temperature Pulse Rate 79 77 80 Respiratory Rate 22 H 24 H 24 H Blood Pressure 166/98 H 166/98 H Pulse Oximetry 95 94 08/25/25 15:00 08/25/25 15:15 08/25/25 15:16 Temperature Pulse Rate 107 H 88 91 Respiratory Rate 29 H 25 H 27 H Blood Pressure 174/96 H Pulse Oximetry 88 L 83 L 08/25/25 15:17 08/25/25 15:30 08/25/25 15:31 Temperature Pulse Rate 87 87 87 Respiratory Rate 22 H 16 34 H Blood Pressure 174/96 H 146/90 H Pulse Oximetry 97 96 96 08/25/25 15:45 08/25/25 16:00 08/25/25 16:02 Temperature Pulse Rate 87 104 H 103 H Respiratory Rate 28 H 22 H 28 H Blood Pressure 143/96 H Pulse Oximetry 96 98 08/25/25 16:15 08/25/25 16:30 08/25/25 16:31 Temperature Pulse Rate 98 101 H 98 Respiratory Rate 31 H 29 H 28 H Blood Pressure 128/81 Pulse Oximetry 98 95 94 08/25/25 16:45 08/25/25 17:00 08/25/25 17:01 Temperature Pulse Rate 93 89 94 Respiratory Rate 29 H 29 H 27 H Blood Pressure 134/84 Pulse Oximetry 97 98 99 08/25/25 17:15 08/25/25 17:30 08/25/25 17:32 Temperature Pulse Rate 92 107 H 93 Respiratory Rate 29 H 17 27 H Blood Pressure 160/98 H Pulse Oximetry 100 94 08/25/25 17:45 08/25/25 18:00 08/25/25 18:01 Temperature Pulse Rate 96 94 95 Respiratory Rate 34 H 31 H 31 H Blood Pressure 134/90 Pulse Oximetry 93 93 93 08/25/25 18:15 08/25/25 18:30 08/25/25 18:31 Temperature Pulse Rate 101 H 99 96 Respiratory Rate 24 H 30 H 33 H Blood Pressure 156/85 H Pulse Oximetry 95 08/25/25 18:45 08/25/25 19:00 08/25/25 19:00 Temperature Pulse Rate 97 97 95 Respiratory Rate 32 H 20 32 H Blood Pressure 129/88 Pulse Oximetry 95 08/25/25 19:01 08/25/25 19:15 08/25/25 19:30 Temperature Pulse Rate 93 93 96 Respiratory Rate 31 H 32 H 27 H Blood Pressure 129/88 Pulse Oximetry 94 97 08/25/25 19:31 08/25/25 19:45 08/25/25 20:00 Temperature Pulse Rate 95 104 H 100 Respiratory Rate 31 H 23 H 26 H Blood Pressure 162/90 H Pulse Oximetry 94 93 95 08/25/25 20:01 08/25/25 20:15 08/25/25 20:30 Temperature Pulse Rate 106 H 100 98 Respiratory Rate 28 H 32 H 33 H Blood Pressure 168/89 H Pulse Oximetry 93 93 08/25/25 20:31 08/25/25 20:45 08/25/25 21:00 Temperature Pulse Rate 96 104 H 105 H Respiratory Rate 32 H 29 H 25 H Blood Pressure 160/92 H Pulse Oximetry 92 96 93 08/25/25 21:01 08/25/25 21:15 08/25/25 21:30 Temperature Pulse Rate 106 H 102 H 109 H Respiratory Rate 30 H 35 H 26 H Blood Pressure 168/106 H Pulse Oximetry 96 93 88 L 08/25/25 21:31 08/25/25 22:10 08/25/25 22:30 Temperature 99.5 F Pulse Rate 108 H 92 101 H Respiratory Rate 30 H 20 Blood Pressure 133/74 159/88 H Pulse Oximetry 90 93 08/26/25 00:00 08/26/25 00:00 08/26/25 02:46 Temperature 98.9 F Pulse Rate 94 93 123 H Respiratory Rate 20 Blood Pressure 182/99 H Pulse Oximetry 94 08/26/25 04:00 08/26/25 04:00 08/26/25 06:00 Temperature 99.1 F Pulse Rate 100 114 H 102 H Respiratory Rate 16 Blood Pressure 152/81 H Pulse Oximetry 91 08/26/25 08:00 08/26/25 08:53 08/26/25 09:05 Temperature 100.3 F H Pulse Rate 107 H 118 H Respiratory Rate 18 Blood Pressure 196/103 H 191/109 H Pulse Oximetry 91 08/26/25 10:11 08/26/25 11:30 Temperature 98.3 F Pulse Rate 100 Respiratory Rate 20 Blood Pressure 196/111 H 172/104 H Pulse Oximetry 90 Intake/Output Intake/Output: Intake & Output 08/23/25 08/24/25 08/25/25 08/26/25 23:59 23:59 23:59 23:59 Intake Total 1308.8 450 Output Total 300 Balance 1308.8 150 Meds/Results Medications: Active Medications Generic Name Dose Route Start Last Admin Trade Name Freq PRN Reason Stop Dose Admin Diazepam 5 - 10 mg 08/25/25 10:25 Diazepam Inj (*Crx) 10 Mg/2 Ml Syringe IV PUSH Q5M PRN CIWA > 15 Diazepam 10 mg 08/25/25 12:00 08/26/25 06:53 Diazepam Inj (*Crx) 10 Mg/2 Ml Syringe IV PUSH 08/29/25 11:59 10 mg Q8HR CAROLYN Administration Taper Folic Acid 1 mg 08/26/25 09:00 08/26/25 10:01 Folic Acid 1 Mg/0.2 Ml Inj IV PUSH 1 mg DAILY CAROLYN Administration Hydralazine HCl 20 mg 08/26/25 10:36 Hydralazine Hcl 20 Mg/Ml Vial IV PUSH Q8H PRN Blood Pressure - High Hydralazine HCl 10 mg 08/26/25 11:00 08/26/25 11:51 Hydralazine Hcl 20 Mg/Ml Vial IV PUSH 10 mg Q8H CAROLYN Administration Hydromorphone HCl 0.5 mg 08/25/25 07:53 08/26/25 04:45 Hydromorphone Hcl Inj (*Crx) 1 Mg/Ml Syr IV PUSH 0.5 mg Q4H PRN Administration Pain Rated 7-10 Ceftriaxone Sodium 1 gm/ 50 mls @ 100 mls/hr 08/26/25 09:00 08/26/25 10:10 Sodium Chloride IVPB Infused Q24H CAROLYN Infusion Metronidazole 500 mg in 100 mls @ 100 mls/hr 08/25/25 18:00 08/26/25 11:10 Flagyl 500 Mg/Iso Soln 100 Ml IVPB Infused Q8H CAROLYN Infusion Sodium Chloride 1,000 mls @ 75 mls/hr 08/25/25 16:15 08/25/25 22:51 Normal Saline Iv IV CONT 75 mls/hr .[id number] CAROLYN Administration Ondansetron HCl 4 mg 08/25/25 10:22 Ondansetron Inj 4 Mg/2 Ml Vial IV PUSH Q4HR PRN nausea/vominting Pantoprazole Sodium 40 mg 08/25/25 21:00 08/26/25 09:01 Pantoprazole Sodium Iv 40 Mg Vial IV PUSH 40 mg Q12HR CAROLYN Administration Thiamine HCl 100 mg 08/26/25 09:00 08/26/25 09:02 Thiamine Hcl 200 Mg/2 Ml Vial IV PUSH 100 mg DAILY CAROLYN Administration Radiology Results: ITS Impressions Abdomen/Pelvis CTA 08/25/25 06:38 IMPRESSION: 1. Worrisome for acute cholecystitis. 2. Suspect enterocolitis. 3. Suspect gastritis. 4. No evidence of active bleed. Chest X-Ray 08/25/25 07:06 IMPRESSION: 1. No acute cardiopulmonary findings given portable technique. Upper Quadrant Ultrasound 08/25/25 11:18 IMPRESSION: 1. Consistent with acute cholecystitis. Labs Labs: Laboratory Results - last 24 hr 08/25/25 08/25/25 08/26/25 13:36 20:08 00:07 WBC RBC Hgb Hct MCV MCH MCHC RDW Plt Count MPV % Immature Plt Fraction Sodium Potassium Chloride Carbon Dioxide Anion Gap BUN Creatinine Estim Creat Clear Calc Estimated GFR Glucose POC Capillary Glucose 111 H 123 H 141 H Calcium Magnesium Total Bilirubin AST ALT Alkaline Phosphatase Total Protein Albumin Triglycerides Cholesterol LDL Cholesterol Direct HDL Direct Lipase 08/26/25 04:10 WBC 8.9 RBC 5.91 Hgb 18.8 H Hct 54.1 H MCV 91.5 MCH 31.8 MCHC 34.8 RDW 11.8 Plt Count 123 L MPV 8.6 % Immature Plt Fraction 1.4 Sodium 131 L Potassium 4.4 Chloride 97 L Carbon Dioxide 25 Anion Gap 9 BUN 12 Creatinine 1.22 Estim Creat Clear Calc 56 Estimated GFR 60 Glucose 119 H POC Capillary Glucose Calcium 9.2 Magnesium 2.2 Total Bilirubin 4.3 H AST 28 ALT 26 Alkaline Phosphatase 82 Total Protein 7.4 Albumin 4.1 Triglycerides 66 Cholesterol 130 LDL Cholesterol Direct 65 HDL Direct 40 Lipase 45
--- NOTE | 2025-08-26 16:25 | P.PNGI_ITS ---
Progress Note: A&P Assessment and Plan (1) Acute cholecystitis: Code(s): K81.0 - Acute cholecystitis Status: Acute Assessment and Plan: on antibiotic pain better awaiting MRCP surgery on board (2) Elevated bilirubin: Code(s): R17 - Unspecified jaundice Status: Acute Assessment and Plan: no major changes, he also drinks alcohol awating on mrcp to assess biliary system and GB (3) Abdominal pain: Qualifiers: Abdominal location: right upper quadrant Qualified Code(s): R10.11 - Right upper quadrant pain Code(s): R10.9 - Unspecified abdominal pain Status: Acute (4) Hepatic steatosis: Code(s): K76.0 - Fatty (change of) liver, not elsewhere classified Status: Chronic (5) Nausea: Code(s): R11.0 - Nausea Status: Acute Assessment and Plan: this has improved (6) Alcohol use disorder: Code(s): F10.90 - Alcohol use, unspecified, uncomplicated Status: Chronic Assessment and Plan: thiamine Subjective Date/time seen: 08/26/25 16:25 Interval history: still with pain but has improved Review of Systems Review of Systems: All systems reviewed & are unremarkable except as noted in HPI and below Exam Const: General: no acute distress and average body habitus O rientation/consciousness: patient oriented x3 HENMT: Face/Nose/Sinus: Normal nares present Eyes: Sclera: scleral abnormality Other: Jaundice Neck: Neck: supple Resp: Effort & Inspection: normal respiratory effort Cardio: Rate: regular rate GI: Inspection: non-distended GI Palp: Yes Soft to palpation, Yes Tenderness to palpation present (GI) (minimal RUQ) and No Guarding due to pa lpation present (GI) Other: surgical scar midline Skin: General skin exam: normal color and jaundice Neuro: Speech: normal speech Motor exam (neuro): 5/5 motor strength present throughout Extrem: General: normal to inspection Psych: Mental Status: mental status grossly normal Objective Data Vital Signs Vital Signs: Vital Signs - 24 hr 08/25/25 16:30 08/25/25 16:31 08/25/25 16:45 Temperature Pulse Rate 101 H 98 93 Respiratory Rate 29 H 28 H 29 H Blood Pressure 128/81 Pulse Oximetry 95 94 97 08/25/25 17:00 08/25/25 17:01 08/25/25 17:15 Temperature Pulse Rate 89 94 92 Respiratory Rate 29 H 27 H 29 H Blood Pressure 134/84 Pulse Oximetry 98 99 100 08/25/25 17:30 08/25/25 17:32 08/25/25 17:45 Temperature Pulse Rate 107 H 93 96 Respiratory Rate 17 27 H 34 H Blood Pressure 160/98 H Pulse Oximetry 94 93 08/25/25 18:00 08/25/25 18:01 08/25/25 18:15 Temperature Pulse Rate 94 95 101 H Respiratory Rate 31 H 31 H 24 H Blood Pressure 134/90 Pulse Oximetry 93 93 95 08/25/25 18:30 08/25/25 18:31 08/25/25 18:45 Temperature Pulse Rate 99 96 97 Respiratory Rate 30 H 33 H 32 H Blood Pressure 156/85 H Pulse Oximetry 08/25/25 19:00 08/25/25 19:00 08/25/25 19:01 Temperature Pulse Rate 97 95 93 Respiratory Rate 20 32 H 31 H Blood Pressure 129/88 129/88 Pulse Oximetry 95 08/25/25 19:15 08/25/25 19:30 08/25/25 19:31 Temperature Pulse Rate 93 96 95 Respiratory Rate 32 H 27 H 31 H Blood Pressure 162/90 H Pulse Oximetry 94 97 94 08/25/25 19:45 08/25/25 20:00 08/25/25 20:01 Temperature Pulse Rate 104 H 100 106 H Respiratory Rate 23 H 26 H 28 H Blood Pressure 168/89 H Pulse Oximetry 93 95 08/25/25 20:15 08/25/25 20:30 08/25/25 20:31 Temperature Pulse Rate 100 98 96 Respiratory Rate 32 H 33 H 32 H Blood Pressure 160/92 H Pulse Oximetry 93 93 92 08/25/25 20:45 08/25/25 21:00 08/25/25 21:01 Temperature Pulse Rate 104 H 105 H 106 H Respiratory Rate 29 H 25 H 30 H Blood Pressure 168/106 H Pulse Oximetry 96 93 96 08/25/25 21:15 08/25/25 21:30 08/25/25 21:31 Temperature Pulse Rate 102 H 109 H 108 H Respiratory Rate 35 H 26 H 30 H Blood Pressure 133/74 Pulse Oximetry 93 88 L 90 08/25/25 22:10 08/25/25 22:30 08/26/25 00:00 Temperature 99.5 F 98.9 F Pulse Rate 92 101 H 94 Respiratory Rate 20 20 Blood Pressure 159/88 H 182/99 H Pulse Oximetry 93 94 08/26/25 00:00 08/26/25 02:46 08/26/25 04:00 Temperature Pulse Rate 93 123 H 100 Respiratory Rate Blood Pressure Pulse Oximetry 08/26/25 04:00 08/26/25 06:00 08/26/25 08:00 Temperature 99.1 F 100.3 F H Pulse Rate 114 H 102 H 107 H Respiratory Rate 16 18 Blood Pressure 152/81 H 196/103 H Pulse Oximetry 91 91 08/26/25 08:53 08/26/25 09:05 08/26/25 10:11 Temperature Pulse Rate 118 H Respiratory Rate Blood Pressure 191/109 H 196/111 H Pulse Oximetry 08/26/25 11:30 08/26/25 16:00 Temperature 98.3 F 99.4 F Pulse Rate 100 109 H Respiratory Rate 20 24 H Blood Pressure 172/104 H 177/90 H Pulse Oximetry 90 91 Intake/Output Intake/Output: Intake & Output 08/23/25 08/24/25 08/25/25 08/26/25 23:59 23:59 23:59 23:59 Intake Total 1308.8 450 Output Total 300 Balance 1308.8 150 Meds/Results Medications: Active Medications Generic Name Dose Route Start Last Admin Trade Name Freq PRN Reason Stop Dose Admin Diazepam 5 - 10 mg 08/25/25 10:25 Diazepam Inj (*Crx) 10 Mg/2 Ml Syringe IV PUSH Q5M PRN CIWA > 15 Diazepam 10 mg 08/25/25 12:00 08/26/25 14:31 Diazepam Inj (*Crx) 10 Mg/2 Ml Syringe IV PUSH 08/29/25 11:59 10 mg Q8HR CAROLYN Administration Taper Folic Acid 1 mg 08/26/25 09:00 08/26/25 10:01 Folic Acid 1 Mg/0.2 Ml Inj IV PUSH 1 mg DAILY CAROLYN Administration Hydralazine HCl 20 mg 08/26/25 10:36 Hydralazine Hcl 20 Mg/Ml Vial IV PUSH Q8H PRN Blood Pressure - High Hydralazine HCl 10 mg 08/26/25 11:00 08/26/25 11:51 Hydralazine Hcl 20 Mg/Ml Vial IV PUSH 10 mg Q8H CAROLYN Administration Hydromorphone HCl 0.5 mg 08/25/25 07:53 08/26/25 12:29 Hydromorphone Hcl Inj (*Crx) 1 Mg/Ml Syr IV PUSH 0.5 mg Q4H PRN Administration Pain Rated 7-10 Ceftriaxone Sodium 1 gm/ 50 mls @ 100 mls/hr 08/26/25 09:00 08/26/25 10:10 Sodium Chloride IVPB Infused Q24H CAROLYN Infusion Metronidazole 500 mg in 100 mls @ 100 mls/hr 08/25/25 18:00 08/26/25 11:10 Flagyl 500 Mg/Iso Soln 100 Ml IVPB Infused Q8H CAROLYN Infusion Sodium Chloride 1,000 mls @ 75 mls/hr 08/25/25 16:15 08/25/25 22:51 Normal Saline Iv IV CONT 75 mls/hr .[id number] CAROLYN Administration Ondansetron HCl 4 mg 08/25/25 10:22 Ondansetron Inj 4 Mg/2 Ml Vial IV PUSH Q4HR PRN nausea/vominting Pantoprazole Sodium 40 mg 08/25/25 21:00 08/26/25 09:01 Pantoprazole Sodium Iv 40 Mg Vial IV PUSH 40 mg Q12HR CAROLYN Administration Thiamine HCl 100 mg 08/26/25 09:00 08/26/25 09:02 Thiamine Hcl 200 Mg/2 Ml Vial IV PUSH 100 mg DAILY CAROLYN Administration Radiology Results: ITS Impressions Abdomen/Pelvis CTA 08/25/25 06:38 IMPRESSION: 1. Worrisome for acute cholecystitis. 2. Suspect enterocolitis. 3. Suspect gastritis. 4. No evidence of active bleed. Chest X-Ray 08/25/25 07:06 IMPRESSION: 1. No acute cardiopulmonary findings given portable technique. Upper Quadrant Ultrasound 08/25/25 11:18 IMPRESSION: 1. Consistent with acute cholecystitis. Labs Labs: Laboratory Results - last 24 hr 08/25/25 08/26/25 08/26/25 20:08 00:07 04:10 WBC 8.9 RBC 5.91 Hgb 18.8 H Hct 54.1 H MCV 91.5 MCH 31.8 MCHC 34.8 RDW 11.8 Plt Count 123 L MPV 8.6 % Immature Plt Fraction 1.4 Sodium 131 L Potassium 4.4 Chloride 97 L Carbon Dioxide 25 Anion Gap 9 BUN 12 Creatinine 1.22 Estim Creat Clear Calc 56 Estimated GFR 60 Glucose 119 H POC Capillary Glucose 123 H 141 H Calcium 9.2 Magnesium 2.2 Total Bilirubin 4.3 H AST 28 ALT 26 Alkaline Phosphatase 82 Total Protein 7.4 Albumin 4.1 Triglycerides 66 Cholesterol 130 LDL Cholesterol Direct 65 HDL Direct 40 Lipase 45 08/26/25 11:33 WBC RBC Hgb Hct MCV MCH MCHC RDW Plt Count MPV % Immature Plt Fraction Sodium Potassium Chloride Carbon Dioxide Anion Gap BUN Creatinine Estim Creat Clear Calc Estimated GFR Glucose POC Capillary Glucose 135 H Calcium Magnesium Total Bilirubin AST ALT Alkaline Phosphatase Total Protein Albumin Triglycerides Cholesterol LDL Cholesterol Direct HDL Direct Lipase
[2025-08-26] MEDS: SODIUM CHLORIDE 0.9% IV 1,000 ML 75 ML IV CONT (20:13)
[2025-08-27] VITALS (19 sets, daily range): BP systolic 101–203; BP diastolic 71–108; PULSE 95–122; RESP 18–138; TEMP 36.8–38.6; O2SAT 90–98
[2025-08-27] MEDS: diazePAM INJ (*CRX) 10 MG/2 ML SYRINGE IV PUSH ×3 (00:23→21:22)
[2025-08-27] MEDS: metroNIDAZOLE 500 MG/ISO 100ML 500 MG/100 ML BAG 100 MG IVPB ×3 (01:39→17:41)
[2025-08-27] MEDS: ACETAMINOPHEN 325 MG TABLET 650 MG PO (04:12)
[2025-08-27] MEDS: HYDROmorphone HCL INJ (*CRX) 1 MG/ML SYR 0.5 MG IV PUSH ×2 (04:16→10:03)
[2025-08-27 04:42] LABS: Hematocrit 51.8 % (42.0-52.0); Hemoglobin 18.1 g/dL (14.0-18.0); Mean Corpuscular HGB Conc 34.9 g/dl (32-36); Mean Corpuscular Hemoglobin 32.3 pg (26-34); Mean Corpuscular Volume 92.5 fl (80-100); Platelet Count Result 108 k/mm3 (150-375); Red Blood Count 5.60 M/mm3 (4.6-6.20); White Blood Count 11.9 K/mm3 (4.5-10.0)
[2025-08-27 04:56] LABS: Alanine Aminotransferase 18 U/L (6-50); Albumin Level 3.6 g/dL (3.5-5.1); Alkaline Phosphatase 77 U/L (38-126); Anion Gap 7 mmol/L (4-12); Aspartate Amino Transferase 31 U/L (17-59); Bilirubin,Total 3.9 mg/dL (0.2-1.3); Blood Urea Nitrogen 19 mg/dL (9-20); Calcium 8.6 mg/dL (8.4-10.2); Carbon Dioxide 22 mmol/L (22-30); Chloride 101 mmol/L (98-107); Estimated CRCL calculation 50 ml/min; Estimated Glomerular Filt Rate 52; Glucose 99 mg/dL (65-110); Magnesium 2.4 mg/dL (1.6-2.3); Potassium 3.9 mmol/L (3.4-5.0); Sodium 130 mmol/L (137-145); Total Protein 6.7 g/dL (6.3-8.2)
--- NOTE | 2025-08-27 09:48 | P.PNGS_ITS ---
Progress Note: A&P Assessment and Plan (1) Acute cholecystitis: Code(s): K81.0 - Acute cholecystitis Status: Acute Assessment and Plan: * Patient is more symptomatic today. His abdominal pain and tenderness is worse, and he has developed a fever and leukocytosis. Discussed the case with Dr. Preston, who would recommend proceeding with percutaneous cholecystostomy tube placement today. * Continue ceftriaxone and flagyl * Will keep him NPO for procedure (2) Elevated bilirubin: Code(s): R17 - Unspecified jaundice Status: Acute Assessment and Plan: * Still awaiting MRCP without definitive timeframd on when this will be done today. Total bilirubin still around 4.0. * I reviewed the patient's records as he mentioned having surgery and labs at [place] prior. He has another medical record number and previous labs that showed chronic hyperbilirubinemia. His bilirubin was around 3.0 as far back as 2008. His hyperbilirubinemia is more likely chronic with less concerns of an acute issue, such as choledocholithiasis, especially without any biliary dilation noted on initial imaging. See plan above. MRCP cancelled for now as intervention for his gallbladder takes precedence due to his fevers/leukocytosis and increased pain. * We are also requesting medical records to review and combine his charts. (3) Alcohol use disorder: Code(s): F10.90 - Alcohol use, unspecified, uncomplicated Status: Chronic (4) Hypertension: Qualifiers: Hypertension type: primary hypertension Qualified Code(s): I10 - Essential (primary) hypertension Code(s): I10 - Essential (primary) hypertension Status: Chronic (5) Thrombocytopenia: Code(s): D69.6 - Thrombocytopenia, unspecified Status: Acute Assessment and Plan: * Platelets 108,000, continue to monitor (6) Hepatic steatosis: Code(s): K76.0 - Fatty (change of) liver, not elsewhere classified Status: Chronic (7) Enterocolitis: Code(s): K52.9 - Noninfective gastroenteritis and colitis, unspecified Status: Acute (8) History of bowel resection: Code(s): Z90.49 - Acquired absence of other specified parts of digestive tract Status: Resolved Assessment and Plan: * Low anterior resection with colostomy in 2007 for acute perforated diverticulitis by Dr. More, with eventual laparoscopic colostomy takedown a few months later. Plan I have discussed the patient's case, recommendations, and treatment plan with Dr. Preston. Subjective Subjective Date/Time Seen: 08/27/25 09:48 Patient reports: still having pain and fever Interval history: Patient still awaiting MRCP. Discussed with MRI and he is scheduled to go down around 11 but they are having a supervisor pipeline maintenance come look at the machine this morning and it could be pushed back longer. The patient appears very uncomfortable this morning. He reports more abdominal pain overnight. He remains NPO. He was febrile overnight with a T-max of a 101.4? F. His white blood cell count went up slightly to 11,000. his total bilirubin is 3.9 today. In review of the electronic medical records, the patient appears to have another medical record with previous labs that I was able to review. He has had an elevated bilirubin for many years as high as 5.0. Exam Const: General: ill appearing and uncomfortable ( Due to pain) GI: Inspection: non-distended GI Palp: Yes Soft to palpation, Yes Tenderness to palpation present (GI) ( more tender in RUQ with some now mild diffuse tenderness), Yes Guarding due to palpation present (GI) (RUQ) and No Rebound tenderness present Auscultation: Hypoactive bowel sounds present Objective Data Vital Signs Vital Signs: Vital Signs - 24 hr 08/26/25 10:00 08/26/25 10:11 08/26/25 11:30 Temperature 98.3 F Pulse Rate 104 H 100 Respiratory Rate 20 Blood Pressure 196/111 H 172/104 H Pulse Oximetry 90 Oxygen Delivery Oxygen Flow Rate 08/26/25 12:00 08/26/25 16:00 08/26/25 16:00 Temperature 99.4 F Pulse Rate 109 H 109 H 109 H Respiratory Rate 24 H 24 H Blood Pressure 177/90 H Pulse Oximetry 91 91 Oxygen Delivery Room Air Oxygen Flow Rate 08/26/25 16:00 08/26/25 18:00 08/26/25 19:57 Temperature Pulse Rate 109 H 120 H Respiratory Rate Blood Pressure Pulse Oximetry Oxygen Delivery Room Air Oxygen Flow Rate 08/26/25 20:00 08/26/25 20:00 08/26/25 21:56 Temperature 99.9 F H 100.9 F H Pulse Rate 125 H 126 H 125 H Respiratory Rate 36 H Blood Pressure 142/85 H 132/70 Pulse Oximetry 90 93 Oxygen Delivery Oxygen Flow Rate 08/26/25 22:44 08/27/25 00:00 08/27/25 00:00 Temperature 99.4 F Pulse Rate 120 H 111 H Respiratory Rate 26 H Blood Pressure 143/76 H Pulse Oximetry 94 92 Oxygen Delivery Nasal Cannula Oxygen Flow Rate 2 08/27/25 00:00 08/27/25 02:00 08/27/25 04:00 Temperature Pulse Rate 109 H 113 H Respiratory Rate Blood Pressure Pulse Oximetry 93 Oxygen Delivery Room Air Oxygen Flow Rate 08/27/25 04:00 08/27/25 04:12 08/27/25 04:14 Temperature 101.4 F H 101.4 F H Pulse Rate 113 H 112 H Respiratory Rate 21 H Blood Pressure 156/98 H Pulse Oximetry 92 Oxygen Delivery Oxygen Flow Rate 08/27/25 05:00 08/27/25 06:00 08/27/25 07:29 Temperature 98.8 F 98.8 F Pulse Rate 109 H 103 H Respiratory Rate 18 Blood Pressure 113/71 Pulse Oximetry 91 Oxygen Delivery Oxygen Flow Rate Intake/Output Intake/Output: Intake & Output 08/24/25 08/25/25 08/26/25 08/27/25 23:59 23:59 23:59 23:59 Intake Total 1308.8 1550 100 Output Total 900 400 Balance 1308.8 650 -300 Meds/Results Medications: Active Medications Generic Name Dose Route Start Last Admin Trade Name Freq PRN Reason Stop Dose Admin Acetaminophen 650 mg 08/27/25 03:59 08/27/25 04:12 Acetaminophen 325 Mg Tablet PO 650 mg Q4H PRN Administration Mild Pain (1-3) or Fever Diazepam 5 - 10 mg 08/25/25 10:25 Diazepam Inj (*Crx) 10 Mg/2 Ml Syringe IV PUSH Q5M PRN CIWA > 15 Diazepam 10 mg 08/25/25 12:00 08/27/25 06:52 Diazepam Inj (*Crx) 10 Mg/2 Ml Syringe IV PUSH 08/29/25 11:59 10 mg Q8HR CAROLYN Administration Taper Folic Acid 1 mg 08/26/25 09:00 08/26/25 10:01 Folic Acid 1 Mg/0.2 Ml Inj IV PUSH 1 mg DAILY CAROLYN Administration Hydralazine HCl 20 mg 08/26/25 10:36 Hydralazine Hcl 20 Mg/Ml Vial IV PUSH Q8H PRN Blood Pressure - High Hydralazine HCl 10 mg 08/26/25 11:00 08/27/25 03:54 Hydralazine Hcl 20 Mg/Ml Vial IV PUSH 10 mg Q8H CAROLYN Administration Hydromorphone HCl 0.5 mg 08/25/25 07:53 08/27/25 04:16 Hydromorphone Hcl Inj (*Crx) 1 Mg/Ml Syr IV PUSH 0.5 mg Q4H PRN Administration Pain Rated 7-10 Ceftriaxone Sodium 1 gm/ 50 mls @ 100 mls/hr 08/26/25 09:00 08/26/25 10:10 Sodium Chloride IVPB Infused Q24H CAROLYN Infusion Metronidazole 500 mg in 100 mls @ 100 mls/hr 08/25/25 18:00 08/27/25 04:45 Flagyl 500 Mg/Iso Soln 100 Ml IVPB Infused Q8H CAROLYN Infusion Sodium Chloride 1,000 mls @ 75 mls/hr 08/25/25 16:15 08/26/25 20:13 Normal Saline Iv IV CONT 75 mls/hr .[id number] CAROLYN Administration Ondansetron HCl 4 mg 08/25/25 10:22 Ondansetron Inj 4 Mg/2 Ml Vial IV PUSH Q4HR PRN nausea/vominting Pantoprazole Sodium 40 mg 08/25/25 21:00 08/26/25 20:11 Pantoprazole Sodium Iv 40 Mg Vial IV PUSH 40 mg Q12HR CAROLYN Administration Thiamine HCl 100 mg 08/26/25 09:00 08/26/25 09:02 Thiamine Hcl 200 Mg/2 Ml Vial IV PUSH 100 mg DAILY CAROLYN Administration Radiology Results: ITS Impressions Abdomen/Pelvis CTA 08/25/25 06:38 IMPRESSION: 1. Worrisome for acute cholecystitis. 2. Suspect enterocolitis. 3. Suspect gastritis. 4. No evidence of active bleed. Chest X-Ray 08/25/25 07:06 IMPRESSION: 1. No acute cardiopulmonary findings given portable technique. Upper Quadrant Ultrasound 08/25/25 11:18 IMPRESSION: 1. Consistent with acute cholecystitis. Labs Labs: Laboratory Results - last 24 hr 08/26/25 08/26/25 08/26/25 04:10 11:33 17:48 WBC RBC Hgb Hct MCV MCH MCHC RDW Plt Count MPV Sodium Potassium Chloride Carbon Dioxide Anion Gap BUN Creatinine Estim Creat Clear Calc Estimated GFR Glucose POC Capillary Glucose 135 H 103 Calcium Magnesium Total Bilirubin AST ALT Alkaline Phosphatase Total Protein Albumin Triglycerides 66 Cholesterol 130 LDL Cholesterol Direct 65 HDL Direct 40 08/27/25 08/27/25 00:07 03:47 WBC 11.9 H RBC 5.60 Hgb 18.1 H Hct 51.8 MCV 92.5 MCH 32.3 MCHC 34.9 RDW 11.9 Plt Count 108 L MPV 9.2 Sodium 130 L Potassium 3.9 Chloride 101 Carbon Dioxide 22 Anion Gap 7 BUN 19 Creatinine 1.38 H Estim Creat Clear Calc 50 Estimated GFR 52 L Glucose 99 POC Capillary Glucose 108 H Calcium 8.6 Magnesium 2.4 H Total Bilirubin 3.9 H AST 31 ALT 18 Alkaline Phosphatase 77 Total Protein 6.7 Albumin 3.6 Triglycerides Cholesterol LDL Cholesterol Direct HDL Direct
[2025-08-27] MEDS: SODIUM CHLORIDE 0.9% IV 1,000 ML 75 ML IV CONT (10:02)
[2025-08-27] MEDS: PANTOPRAZOLE SODIUM IV 40 MG VIAL IV PUSH ×2 (10:08→21:22)
[2025-08-27] MEDS: THIAMINE HCL 200 MG/2 ML VIAL 100 MG IV PUSH (10:10)
[2025-08-27] MEDS: FOLIC ACID 1 MG/0.2 ML INJ IV PUSH (10:14)
[2025-08-27] MEDS: cefTRIAXone 1 GM in SODIUM CHLORIDE 0.9% IV 50 ML 100 ML IVPB (10:15)
--- NOTE | 2025-08-27 12:50 | ECG_ITS ---
Test Date: 2025-08-27 13:04:21 Measurements Intervals [place] Rate: 131 P: 16 [place]: 132 QRS: -3 QRSD: 80 T: 25 QT: 277 QTc: 409 Interpretive Statements SINUS TACHYCARDIA WITH OCCASIONAL VENTRICULAR PREMATURE COMPLEXES INFERIOR INFARCT, AGE INDETERMINATE ANTEROSEPTAL INFARCT, AGE INDETERMINATE BASELINE ARTIFACT- V2 ABNORMAL ECG Compared to ECG 08/25/2025 07:12:48 HEART RATE HAS INCREASED Ventricular premature complex(es) now present Electronically Signed On 08-27-2025 13:19:09 [employer] by Zach Pizarro D.O.
--- NOTE | 2025-08-27 16:58 | WPDGIPROGNO ---
Progress Note: A&P Assessment and Plan (1) Acute cholecystitis: Code(s): K81.0 - Acute cholecystitis Status: Acute Assessment and Plan: on antibiotic had fever and more pain with persistent elevated bili surgery ordered cholecystostomy tube as acute treatment, eventually will need cholecystectomy will follow as needed (2) SIRS (systemic inflammatory response syndrome): Code(s): R65.10 - Systemic inflammatory response syndrome (SIRS) of non-infectious origin without acute organ dysfunction Status: Acute Assessment and Plan: source GB, had fever and leukocytosis (3) Elevated bilirubin: Code(s): R17 - Unspecified jaundice Status: Acute Assessment and Plan: from cholecystitis (4) Abdominal pain: Qualifiers: Abdominal location: right upper quadrant Qualified Code(s): R10.11 - Right upper quadrant pain Code(s): R10.9 - Unspecified abdominal pain Status: Acute (5) Hepatic steatosis: Code(s): K76.0 - Fatty (change of) liver, not elsewhere classified Status: Chronic (6) Alcohol use disorder: Code(s): F10.90 - Alcohol use, unspecified, uncomplicated Status: Chronic Assessment and Plan: thiamine Subjective Date/time seen: 08/27/25 16:58 Interval history: pain had more abdominal pain, fever and decision by surgical team was to ask IR to place cholecystostomy tube Review of Systems Review of Systems: All systems reviewed & are unremarkable except as noted in HPI and below Exam Const: General: uncomfortable Other: less pain after procedure HENMT: Face/Nose/Sinus: Normal nares present Eyes: General: appearance normal, both eyes and all related structures Sclera: scleral abnormality (icteric) Neck: Neck: supple Resp: Effort & Inspection: normal respiratory effort Cardio: Rate: regular rate GI: Inspection: distended GI Palp: Yes Tenderness to palpation present (GI) Other: cholecystostomy tube in place Skin: Other: icteric Neuro: Speech: normal speech Motor exam (neuro): 5/5 motor strength present throughout Extrem: General: normal to inspection Psych: Mental Status: mental status grossly normal Objective Data Vital Signs Vital Signs: Vital Signs - 24 hr 08/26/25 18:00 08/26/25 19:57 08/26/25 20:00 Temperature 99.9 F H Pulse Rate 120 H 125 H Respiratory Rate Blood Pressure 142/85 H Pulse Oximetry 90 Oxygen Delivery Room Air Oxygen Flow Rate 08/26/25 20:00 08/26/25 21:56 08/26/25 22:44 Temperature 100.9 F H Pulse Rate 126 H 125 H 120 H Respiratory Rate 36 H Blood Pressure 132/70 Pulse Oximetry 93 Oxygen Delivery Oxygen Flow Rate 08/27/25 00:00 08/27/25 00:00 08/27/25 00:00 Temperature 99.4 F Pulse Rate 111 H 109 H Respiratory Rate 26 H Blood Pressure 143/76 H Pulse Oximetry 94 92 Oxygen Delivery Nasal Cannula Oxygen Flow Rate 2 08/27/25 02:00 08/27/25 04:00 08/27/25 04:00 Temperature Pulse Rate 113 H 113 H Respiratory Rate Blood Pressure Pulse Oximetry 93 Oxygen Delivery Room Air Oxygen Flow Rate 08/27/25 04:12 08/27/25 04:14 08/27/25 05:00 Temperature 101.4 F H 101.4 F H 98.8 F Pulse Rate 112 H Respiratory Rate 21 H Blood Pressure 156/98 H Pulse Oximetry 92 Oxygen Delivery Oxygen Flow Rate 08/27/25 06:00 08/27/25 07:29 08/27/25 11:44 Temperature 98.8 F 99.1 F Pulse Rate 109 H 103 H 122 H Respiratory Rate 18 20 Blood Pressure 113/71 203/108 H Pulse Oximetry 91 98 Oxygen Delivery Oxygen Flow Rate 08/27/25 13:04 Temperature Pulse Rate Respiratory Rate Blood Pressure Pulse Oximetry 90 Oxygen Delivery Nasal Cannula Oxygen Flow Rate 3 Intake/Output Intake/Output: Intake & Output 08/24/25 08/25/25 08/26/25 08/27/25 23:59 23:59 23:59 23:59 Intake Total 1308.8 1550 1250 Output Total 900 450 Balance 1308.8 650 800 Meds/Results Medications: Active Medications Generic Name Dose Route Start Last Admin Trade Name Freq PRN Reason Stop Dose Admin Acetaminophen 650 mg 08/27/25 03:59 08/27/25 04:12 Acetaminophen 325 Mg Tablet PO 650 mg Q4H PRN Administration Mild Pain (1-3) or Fever Diazepam 5 - 10 mg 08/25/25 10:25 Diazepam Inj (*Crx) 10 Mg/2 Ml Syringe IV PUSH Q5M PRN CIWA > 15 Diazepam 10 mg 08/25/25 12:00 08/27/25 06:52 Diazepam Inj (*Crx) 10 Mg/2 Ml Syringe IV PUSH 08/29/25 11:59 10 mg Q12HR CAROLYN Administration Taper Folic Acid 1 mg 08/26/25 09:00 08/27/25 10:14 Folic Acid 1 Mg/0.2 Ml Inj IV PUSH 1 mg DAILY CAROLYN Administration Hydralazine HCl 20 mg 08/26/25 10:36 Hydralazine Hcl 20 Mg/Ml Vial IV PUSH Q8H PRN Blood Pressure - High Hydralazine HCl 10 mg 08/26/25 11:00 08/27/25 11:34 Hydralazine Hcl 20 Mg/Ml Vial IV PUSH 10 mg Q8H CAROLYN Administration Hydromorphone HCl 0.5 mg 08/25/25 07:53 08/27/25 10:03 Hydromorphone Hcl Inj (*Crx) 1 Mg/Ml Syr IV PUSH 0.5 mg Q4H PRN Administration Pain Rated 7-10 Ceftriaxone Sodium 1 gm/ 50 mls @ 100 mls/hr 08/26/25 09:00 08/27/25 11:00 Sodium Chloride IVPB Infused Q24H CAROLYN Infusion Metronidazole 500 mg in 100 mls @ 100 mls/hr 08/25/25 18:00 08/27/25 11:25 Flagyl 500 Mg/Iso Soln 100 Ml IVPB Infused Q8H CAROLYN Infusion Sodium Chloride 1,000 mls @ 75 mls/hr 08/25/25 16:15 08/27/25 10:02 Normal Saline Iv IV CONT 75 mls/hr .[id number] CAROLYN Administration Ondansetron HCl 4 mg 08/25/25 10:22 Ondansetron Inj 4 Mg/2 Ml Vial IV PUSH Q4HR PRN nausea/vominting Pantoprazole Sodium 40 mg 08/25/25 21:00 08/27/25 10:08 Pantoprazole Sodium Iv 40 Mg Vial IV PUSH 40 mg Q12HR CAROLYN Administration Thiamine HCl 100 mg 08/26/25 09:00 08/27/25 10:10 Thiamine Hcl 200 Mg/2 Ml Vial IV PUSH 100 mg DAILY CAROLYN Administration Radiology Results: ITS Impressions Abdomen/Pelvis CTA 08/25/25 06:38 IMPRESSION: 1. Worrisome for acute cholecystitis. 2. Suspect enterocolitis. 3. Suspect gastritis. 4. No evidence of active bleed. Chest X-Ray 08/25/25 07:06 IMPRESSION: 1. No acute cardiopulmonary findings given portable technique. Upper Quadrant Ultrasound 08/25/25 11:18 IMPRESSION: 1. Consistent with acute cholecystitis. Cholecystostomy 08/27/25 12:50 IMPRESSION: 1. Successful ultrasound-guided cholecystostomy tube placement. 2. 50 mL bile was sent for aerobic, anaerobic, and fungal cultures. 3. The catheter will be managed by Dr. Preston. A catheter cholangiogram may be performed not less than 48 hours after tube placement if clinically indicated to assess cystic duct patency. If cholecystectomy is not eventually performed and the infectious episode has resolved, the tube may be removed over a guidewire, preferably not less than 3 weeks after placement to allow time for a mature catheter tract to form to prevent bile leakage and peritonitis. Labs Labs: Laboratory Results - last 24 hr 08/26/25 08/27/25 08/27/25 17:48 00:07 03:47 WBC 11.9 H RBC 5.60 Hgb 18.1 H Hct 51.8 MCV 92.5 MCH 32.3 MCHC 34.9 RDW 11.9 Plt Count 108 L MPV 9.2 Sodium 130 L Potassium 3.9 Chloride 101 Carbon Dioxide 22 Anion Gap 7 BUN 19 Creatinine 1.38 H Estim Creat Clear Calc 50 Estimated GFR 52 L Glucose 99 POC Capillary Glucose 103 108 H Calcium 8.6 Magnesium 2.4 H Total Bilirubin 3.9 H AST 31 ALT 18 Alkaline Phosphatase 77 Total Protein 6.7 Albumin 3.6 08/27/25 11:31 WBC RBC Hgb Hct MCV MCH MCHC RDW Plt Count MPV Sodium Potassium Chloride Carbon Dioxide Anion Gap BUN Creatinine Estim Creat Clear Calc Estimated GFR Glucose POC Capillary Glucose 94 Calcium Magnesium Total Bilirubin AST ALT Alkaline Phosphatase Total Protein Albumin
--- NOTE | 2025-08-27 18:47 | P.PNIM_ITS ---
Assessment and Plan Assessment and Plan (1) Acute cholecystitis: Code(s): K81.0 - Acute cholecystitis Status: Acute Assessment and Plan: Initial workup suggestive of acute cholecystitis, Elevated bilirubin, dilated biliary system on imaging, concern for choledocholithiasis, Report quadrant ultrasound shows acute cholecystitis * Surgery and GI consulted * IV fluids * NPO * Pain control IV Dilaudid * Obtain blood NGTD * IV ceftriaxone, Flagyl * Zofran p.r.n. * Plan for MRCP * IV PPI (2) Alcohol use disorder: Code(s): F10.90 - Alcohol use, unspecified, uncomplicated Status: Chronic Assessment and Plan: Patient with HX of ETOH abuse last drink was reported on Monday night 3 days ago. Denies ever having withdrawal symptoms in the past * Thiamine, folic acid, and multi-vitamin * PPI daily * Diazepam * Ativan PRN for seizure activity * CIWA daily * Monitor and replenish electrolytes as needed * Seizure precautions if indicated (3) Hypertension: Qualifiers: Hypertension type: primary hypertension Qualified Code(s): I10 - Essential (primary) hypertension Code(s): I10 - Essential (primary) hypertension Status: Chronic Assessment and Plan: patient with history of hypertension takes losartan at home however currently NPO is hypertensive * scheduled IV hydralazine while NPO * IV hydralazine as needed for systolic over 180 * monitor BP per unit protocol (4) Thrombocytopenia: Code(s): D69.6 - Thrombocytopenia, unspecified Status: Acute Assessment and Plan: likely secondary to current infection and alcohol abuse * trend platelets * no evidence of active bleed (5) Elevated bilirubin: Code(s): R17 - Unspecified jaundice Status: Acute Assessment and Plan: acute cholecystitis * GI consulted * [facility] today 07/27/2025 * NPO (6) Hepatic steatosis: Code(s): K76.0 - Fatty (change of) liver, not elsewhere classified Status: Chronic Assessment and Plan: * lipid panel pending (7) Enterocolitis: Code(s): K52.9 - Noninfective gastroenteritis and colitis, unspecified Status: Acute Assessment and Plan: CT abdomen suggestive colitis * IV Rocephin and Flagyl * IV fluids Plan Patient with abdominal pain was seen by the surgery service patient is not a candidate for surgery and recommended percutaneous cholecystostomy tube placement and which tolerated, stats feeling litter and abdominal pain is bhavik r, 50cc of bile was sent for the cuture, will monitor. Code status: Full code per patient DVT prophylaxis: SCD's Stress ulcer prophylaxis: Protonix 40 daily PT/OT notes: NA Disposition: Patient continues admission for further evaluation of cholecystitis with consult to General surgery and GI MRCP pending for today. Patient also has history of alcohol abuse continue to monitor for alcohol withdrawal patient ambulatory and plan will be to return home at discharge when medically stable. Subjective Date/time seen: 08/27/25 18:47 Interval history: Patient is a 65-year-old male who was admitted for acute cholecystitis ETOH abuse with consult to General surgery and GI. 08/26/2025: Assumed Care Patient continues with right ABD pain, mild tremors noted. Patient denied SOB, CP, N/V at time of visit. Patient with abdominal pain was seen by the surgery service patient is not a candidate for surgery and recommended percutaneous cholecystostomy tube placement and which tolerated, stats feeling litter and abdominal pain is better, 50cc of bile was sent for the cuture, will monitor. Review of Systems Review of Systems: All systems reviewed & are unremarkable except as noted in HPI and below Exam Narrative: Patient is comfortable, NAD HEENT: eyes are clear and none icteric LUNGS:CTA HEART: RR S1S2 ABD: BS+, diffusely tender Lower extremities: no edema SKIN: nonjaundiced Neuro: grossly intact. Objective Data Vital Signs Vital Signs: Vital Signs - 24 hr 08/26/25 19:57 08/26/25 20:00 08/26/25 20:00 Temperature 37.7 C H Pulse Rate 125 H 126 H Respiratory Rate Blood Pressure 142/85 H Pulse Oximetry 90 Oxygen Delivery Room Air Oxygen Flow Rate 08/26/25 21:56 08/26/25 22:44 08/27/25 00:00 Temperature 38.3 C H 37.4 C Pulse Rate 125 H 120 H 111 H Respiratory Rate 36 H 26 H Blood Pressure 132/70 143/76 H Pulse Oximetry 93 94 Oxygen Delivery Oxygen Flow Rate 08/27/25 00:00 08/27/25 00:00 08/27/25 02:00 Temperature Pulse Rate 109 H 113 H Respiratory Rate Blood Pressure Pulse Oximetry 92 Oxygen Delivery Nasal Cannula Oxygen Flow Rate 2 08/27/25 04:00 08/27/25 04:00 08/27/25 04:12 Temperature 38.6 C H Pulse Rate 113 H Respiratory Rate Blood Pressure Pulse Oximetry 93 Oxygen Delivery Room Air Oxygen Flow Rate 08/27/25 04:14 08/27/25 05:00 08/27/25 06:00 Temperature 38.6 C H 37.1 C Pulse Rate 112 H 109 H Respiratory Rate 21 H Blood Pressure 156/98 H Pulse Oximetry 92 Oxygen Delivery Oxygen Flow Rate 08/27/25 07:29 08/27/25 11:44 08/27/25 13:04 Temperature 37.1 C 37.3 C Pulse Rate 103 H 122 H Respiratory Rate 18 20 Blood Pressure 113/71 203/108 H Pulse Oximetry 91 98 90 Oxygen Delivery Nasal Cannula Oxygen Flow Rate 3 08/27/25 16:00 Temperature 36.8 C Pulse Rate 119 H Respiratory Rate 24 H Blood Pressure 111/71 Pulse Oximetry 93 Oxygen Delivery Oxygen Flow Rate Intake/Output Intake/Output: Intake & Output 08/24/25 08/25/25 08/26/25 08/27/25 23:59 23:59 23:59 23:59 Intake Total 1308.8 1550 1250 Output Total 900 940 Balance 1308.8 650 310 Meds/Results Medications: Active Medications Generic Name Dose Route Start Last Admin Trade Name Freq PRN Reason Stop Dose Admin Acetaminophen 650 mg 08/27/25 03:59 08/27/25 04:12 Acetaminophen 325 Mg Tablet PO 650 mg Q4H PRN Administration Mild Pain (1-3) or Fever Diazepam 5 - 10 mg 08/25/25 10:25 Diazepam Inj (*Crx) 10 Mg/2 Ml Syringe IV PUSH Q5M PRN CIWA > 15 Diazepam 10 mg 08/25/25 12:00 08/27/25 06:52 Diazepam Inj (*Crx) 10 Mg/2 Ml Syringe IV PUSH 08/29/25 11:59 10 mg Q12HR CAROLYN Administration Taper Folic Acid 1 mg 08/26/25 09:00 08/27/25 10:14 Folic Acid 1 Mg/0.2 Ml Inj IV PUSH 1 mg DAILY CAROLYN Administration Hydralazine HCl 20 mg 08/26/25 10:36 Hydralazine Hcl 20 Mg/Ml Vial IV PUSH Q8H PRN Blood Pressure - High Hydralazine HCl 10 mg 08/26/25 11:00 08/27/25 11:34 Hydralazine Hcl 20 Mg/Ml Vial IV PUSH 10 mg Q8H CAROLYN Administration Hydromorphone HCl 0.5 mg 08/25/25 07:53 08/27/25 10:03 Hydromorphone Hcl Inj (*Crx) 1 Mg/Ml Syr IV PUSH 0.5 mg Q4H PRN Administration Pain Rated 7-10 Ceftriaxone Sodium 1 gm/ 50 mls @ 100 mls/hr 08/26/25 09:00 08/27/25 11:00 Sodium Chloride IVPB Infused Q24H CAROLYN Infusion Metronidazole 500 mg in 100 mls @ 100 mls/hr 08/25/25 18:00 08/27/25 17:41 Flagyl 500 Mg/Iso Soln 100 Ml IVPB 100 mls/hr Q8H CAROLYN Administration Sodium Chloride 1,000 mls @ 75 mls/hr 08/25/25 16:15 08/27/25 10:02 Normal Saline Iv IV CONT 75 mls/hr .[id number] CAROLYN Administration Ondansetron HCl 4 mg 08/25/25 10:22 Ondansetron Inj 4 Mg/2 Ml Vial IV PUSH Q4HR PRN nausea/vominting Pantoprazole Sodium 40 mg 08/25/25 21:00 08/27/25 10:08 Pantoprazole Sodium Iv 40 Mg Vial IV PUSH 40 mg Q12HR CAROLYN Administration Thiamine HCl 100 mg 08/26/25 09:00 08/27/25 10:10 Thiamine Hcl 200 Mg/2 Ml Vial IV PUSH 100 mg DAILY CAROLYN Administration Radiology Results: ITS Impressions Abdomen/Pelvis CTA 08/25/25 06:38 IMPRESSION: 1. Worrisome for acute cholecystitis. 2. Suspect enterocolitis. 3. Suspect gastritis. 4. No evidence of active bleed. Chest X-Ray 08/25/25 07:06 IMPRESSION: 1. No acute cardiopulmonary findings given portable technique. Upper Quadrant Ultrasound 08/25/25 11:18 IMPRESSION: 1. Consistent with acute cholecystitis. Cholecystostomy 08/27/25 12:50 IMPRESSION: 1. Successful ultrasound-guided cholecystostomy tube placement. 2. 50 mL bile was sent for aerobic, anaerobic, and fungal cultures. 3. The catheter will be managed by Dr. Preston. A catheter cholangiogram may be performed not less than 48 hours after tube placement if clinically indicated to assess cystic duct patency. If cholecystectomy is not eventually performed and the infectious episode has resolved, the tube may be removed over a guidewire, preferably not less than 3 weeks after placement to allow time for a mature catheter tract to form to prevent bile leakage and peritonitis. Labs Labs: Laboratory Results - last 24 hr 08/27/25 08/27/25 08/27/25 00:07 03:47 11:31 WBC 11.9 H RBC 5.60 Hgb 18.1 H Hct 51.8 MCV 92.5 MCH 32.3 MCHC 34.9 RDW 11.9 Plt Count 108 L MPV 9.2 Sodium 130 L Potassium 3.9 Chloride 101 Carbon Dioxide 22 Anion Gap 7 BUN 19 Creatinine 1.38 H Estim Creat Clear Calc 50 Estimated GFR 52 L Glucose 99 POC Capillary Glucose 108 H 94 Calcium 8.6 Magnesium 2.4 H Total Bilirubin 3.9 H AST 31 ALT 18 Alkaline Phosphatase 77 Total Protein 6.7 Albumin 3.6 08/27/25 18:18 WBC RBC Hgb Hct MCV MCH MCHC RDW Plt Count MPV Sodium Potassium Chloride Carbon Dioxide Anion Gap BUN Creatinine Estim Creat Clear Calc Estimated GFR Glucose POC Capillary Glucose 130 H Calcium Magnesium Total Bilirubin AST ALT Alkaline Phosphatase Total Protein Albumin Quality VTE Prophylaxis VTE prophylaxis: mechanical ordered
[2025-08-28] VITALS (14 sets, daily range): BP systolic 105–153; BP diastolic 72–95; PULSE 74–121; RESP 16–24; TEMP 36.6–37.2; O2SAT 92–100
[2025-08-28] MEDS: SODIUM CHLORIDE 0.9% IV 1,000 ML 75 ML IV CONT ×2 (02:03→17:09)
[2025-08-28] MEDS: metroNIDAZOLE 500 MG/ISO 100ML 500 MG/100 ML BAG 100 MG IVPB ×3 (02:03→17:08)
[2025-08-28] MEDS: HYDROmorphone HCL INJ (*CRX) 1 MG/ML SYR 0.5 MG IV PUSH ×2 (03:23→08:47)
[2025-08-28 04:17] LABS: Hematocrit 50.1 % (42.0-52.0); Hemoglobin 17.5 g/dL (14.0-18.0); Immature Platelet Fraction Pct 2.3 % (0.9-11.2); Mean Corpuscular HGB Conc 34.9 g/dl (32-36); Mean Corpuscular Hemoglobin 31.8 pg (26-34); Mean Corpuscular Volume 91.1 fl (80-100); Platelet Count Result 120 k/mm3 (150-375); Red Blood Count 5.50 M/mm3 (4.6-6.20); White Blood Count 6.7 K/mm3 (4.5-10.0)
[2025-08-28 04:37] LABS: Alanine Aminotransferase 155 U/L (6-50); Albumin Level 3.1 g/dL (3.5-5.1); Alkaline Phosphatase 207 U/L (38-126); Anion Gap 6 mmol/L (4-12); Aspartate Amino Transferase 254 U/L (17-59); Bilirubin,Total 9.3 mg/dL (0.2-1.3); Blood Urea Nitrogen 29 mg/dL (9-20); Calcium 8.4 mg/dL (8.4-10.2); Carbon Dioxide 21 mmol/L (22-30); Chloride 108 mmol/L (98-107); Estimated CRCL calculation 53 ml/min; Estimated Glomerular Filt Rate 56; Glucose 96 mg/dL (65-110); Magnesium 2.7 mg/dL (1.6-2.3); Potassium 3.8 mmol/L (3.4-5.0); Sodium 135 mmol/L (137-145); Total Protein 6.2 g/dL (6.3-8.2)
[2025-08-28] MEDS: THIAMINE HCL 200 MG/2 ML VIAL 100 MG IV PUSH (08:47)
[2025-08-28] MEDS: PANTOPRAZOLE SODIUM IV 40 MG VIAL IV PUSH ×2 (08:47→20:32)
[2025-08-28] MEDS: FOLIC ACID 1 MG/0.2 ML INJ IV PUSH (08:48)
[2025-08-28] MEDS: cefTRIAXone 1 GM in SODIUM CHLORIDE 0.9% IV 50 ML 100 ML IVPB (08:48)
[2025-08-28] MEDS: diazePAM INJ (*CRX) 10 MG/2 ML SYRINGE IV PUSH ×2 (09:43→20:33)
--- NOTE | 2025-08-28 11:19 | P.PNGS_ITS ---
Progress Note: A&P Assessment and Plan (1) Acute cholecystitis: Code(s): K81.0 - Acute cholecystitis Status: Acute Assessment and Plan: * Abd pain and tenderness much improved following cholecystostomy tube plac ement. WBC count normal and no more fevers today. * Continue to monitor cholecystostomy tube. Cultures pending. * Continue IV abx * Will allow clear liquids if not having MRCP today (2) Elevated bilirubin: Code(s): R17 - Unspecified jaundice Status: Acute Assessment and Plan: * LFTs nearly doubled today with his total bilirubin up to 9.3 * MRCP and hepatitis panel ordered * GI following (3) Alcohol use disorder: Code(s): F10.90 - Alcohol use, unspecified, uncomplicated Status: Chronic Assessment and Plan: * Discussed again the importance of alcohol cessation (4) Hypertension: Qualifiers: Hypertension type: primary hypertension Qualified Code(s): I10 - Essential (primary) hypertension Code(s): I10 - Essential (primary) hypertension Status: Chronic (5) Thrombocytopenia: Code(s): D69.6 - Thrombocytopenia, unspecified Status: Acute Assessment and Plan: * Platelets 120,000, continue to monitor, could be related to liver disease (6) Hepatic steatosis: Code(s): K76.0 - Fatty (change of) liver, not elsewhere classified Status: Chronic (7) History of bowel resection: Code(s): Z90.49 - Acquired absence of other specified parts of digestive tract Status: Resolved Assessment and Plan: * Low anterior resection with colostomy in 2007 for acute perforated diverticulitis by Dr. More, with eventual laparoscopic colostomy takedown a few months later. Plan I have discussed the patient's case, recommendations, and treatment plan with Dr. Preston. Subjective Subjective Date/Time Seen: 08/28/25 11:19 Interval history: Reports his abdominal tenderness is better but still having intermittent RUQ pain. He has been afebrile since yesterday morning and his WBC count has normalized. Although, his liver enzymes all went up with his bilirubin nearly doubling. His urine is darker this am. No nausea or vomiting. Exam Const: General: comfortable, no acute distress and ill appearing GI: Inspection: non-distended GI Palp: Yes Soft to palpation, No Tenderness to palpation present (GI) (much improved, no tenderness today), No Guarding due to palpation present (GI) and No Rebound tenderness present Auscultation: Hypoactive bowel sounds present Other: Right lateral percutaneous cholecystostomy tube with clear light-colored yellow/green bile. Skin: General skin exam: jaundice Objective Data Vital Signs Vital Signs: Vital Signs - 24 hr 08/27/25 11:44 08/27/25 12:00 08/27/25 12:00 Temperature 99.1 F Pulse Rate 122 H 122 H Pulse Rate [Right Radial Palpation] 122 H Respiratory Rate 20 Blood Pressure 203/108 H 101/75 Pulse Oximetry 98 Oxygen Delivery Oxygen Flow Rate 08/27/25 12:00 08/27/25 13:00 08/27/25 13:04 Temperature Pulse Rate Pulse Rate [Right Radial Palpation] Respiratory Rate 138 H Blood Pressure 162/97 H Pulse Oximetry 90 90 Oxygen Delivery Room Air Nasal Cannula Oxygen Flow Rate 3 08/27/25 16:00 08/27/25 16:00 08/27/25 16:00 Temperature 98.3 F Pulse Rate 119 H 106 H Pulse Rate [Right Radial Palpation] 101 H Respiratory Rate 24 H Blood Pressure 111/71 111/71 Pulse Oximetry 93 Oxygen Delivery Oxygen Flow Rate 08/27/25 16:00 08/27/25 18:00 08/27/25 20:00 Temperature 98.6 F Pulse Rate 101 H 95 Pulse Rate [Right Radial Palpation] Respiratory Rate 24 H Blood Pressure 101/75 Pulse Oximetry 97 Oxygen Delivery Room Air Oxygen Flow Rate 08/27/25 20:00 08/27/25 20:00 08/27/25 20:00 Temperature Pulse Rate 110 H Pulse Rate [Right Radial Palpation] 101 H Respiratory Rate Blood Pressure Pulse Oximetry 97 Oxygen Delivery Nasal Cannula Oxygen Flow Rate 3 08/27/25 20:26 08/27/25 22:00 08/28/25 00:00 Temperature Pulse Rate 106 H 97 Pulse Rate [Right Radial Palpation] 85 Respiratory Rate 20 Blood Pressure Pulse Oximetry 96 Oxygen Delivery Oxygen Flow Rate 2 08/28/25 00:00 08/28/25 00:00 08/28/25 00:00 Temperature 98.4 F Pulse Rate 79 74 Pulse Rate [Right Radial Palpation] Respiratory Rate 24 H Blood Pressure 121/86 Pulse Oximetry 100 Oxygen Delivery Room Air Oxygen Flow Rate 08/28/25 02:00 08/28/25 04:00 08/28/25 04:00 Temperature Pulse Rate 92 Pulse Rate [Right Radial Palpation] 97 Respiratory Rate Blood Pressure Pulse Oximetry Oxygen Delivery Room Air Oxygen Flow Rate 08/28/25 04:00 08/28/25 04:00 08/28/25 06:00 Temperature 98.5 F Pulse Rate 97 97 95 Pulse Rate [Right Radial Palpation] Respiratory Rate 18 Blood Pressure 137/80 Pulse Oximetry 92 Oxygen Delivery Oxygen Flow Rate 08/28/25 08:00 Temperature 98.9 F Pulse Rate 96 Pulse Rate [Right Radial Palpation] Respiratory Rate 16 Blood Pressure 153/89 H Pulse Oximetry 96 Oxygen Delivery Oxygen Flow Rate Intake/Output Intake/Output: Intake & Output 08/25/25 08/26/25 08/27/25 08/28/25 23:59 23:59 23:59 23:59 Intake Total 1308.8 1550 1350 1100 Output Total 900 940 55 Balance 1308.8 030 397 8084 Meds/Results Medications: Active Medications Generic Name Dose Route Start Last Admin Trade Name Freq PRN Reason Stop Dose Admin Acetaminophen 650 mg 08/27/25 03:59 08/27/25 04:12 Acetaminophen 325 Mg Tablet PO 650 mg Q4H PRN Administration Mild Pain (1-3) or Fever Diazepam 5 - 10 mg 08/25/25 10:25 Diazepam Inj (*Crx) 10 Mg/2 Ml Syringe IV PUSH Q5M PRN CIWA > 15 Diazepam 10 mg 08/25/25 12:00 08/28/25 09:43 Diazepam Inj (*Crx) 10 Mg/2 Ml Syringe IV PUSH 08/29/25 11:59 10 mg Q12HR CAROLYN Administration Taper Folic Acid 1 mg 08/26/25 09:00 08/28/25 08:48 Folic Acid 1 Mg/0.2 Ml Inj IV PUSH 1 mg DAILY CAROLYN Administration Hydralazine HCl 20 mg 08/26/25 10:36 Hydralazine Hcl 20 Mg/Ml Vial IV PUSH Q8H PRN Blood Pressure - High Hydralazine HCl 10 mg 08/26/25 11:00 08/28/25 03:23 Hydralazine Hcl 20 Mg/Ml Vial IV PUSH 10 mg Q8H CAROLYN Administration Hydromorphone HCl 0.5 mg 08/25/25 07:53 08/28/25 08:47 Hydromorphone Hcl Inj (*Crx) 1 Mg/Ml Syr IV PUSH 0.5 mg Q4H PRN Administration Pain Rated 7-10 Ceftriaxone Sodium 1 gm/ 50 mls @ 100 mls/hr 08/26/25 09:00 08/28/25 08:48 Sodium Chloride IVPB 100 mls/hr Q24H CAROLYN Administration Metronidazole 500 mg in 100 mls @ 100 mls/hr 08/25/25 18:00 08/28/25 09:45 Flagyl 500 Mg/Iso Soln 100 Ml IVPB 100 mls/hr Q8H CAROLYN Administration Sodium Chloride 1,000 mls @ 75 mls/hr 08/25/25 16:15 08/28/25 02:03 Normal Saline Iv IV CONT 75 mls/hr .[id number] CAROLYN Administration Ondansetron HCl 4 mg 08/25/25 10:22 Ondansetron Inj 4 Mg/2 Ml Vial IV PUSH Q4HR PRN nausea/vominting Pantoprazole Sodium 40 mg 08/25/25 21:00 08/28/25 08:47 Pantoprazole Sodium Iv 40 Mg Vial IV PUSH 40 mg Q12HR CRAOLYN Administration Thiamine HCl 100 mg 08/26/25 09:00 08/28/25 08:47 Thiamine Hcl 200 Mg/2 Ml Vial IV PUSH 100 mg DAILY CAROLYN Administration Radiology Results: ITS Impressions Abdomen/Pelvis CTA 08/25/25 06:38 IMPRESSION: 1. Worrisome for acute cholecystitis. 2. Suspect enterocolitis. 3. Suspect gastritis. 4. No evidence of active bleed. Chest X-Ray 08/25/25 07:06 IMPRESSION: 1. No acute cardiopulmonary findings given portable technique. Upper Quadrant Ultrasound 08/25/25 11:18 IMPRESSION: 1. Consistent with acute cholecystitis. Cholecystostomy 08/27/25 12:50 IMPRESSION: 1. Successful ultrasound-guided cholecystostomy tube placement. 2. 50 mL bile was sent for aerobic, anaerobic, and fungal cultures. 3. The catheter will be managed by Dr. Preston. A catheter cholangiogram may be performed not less than 48 hours after tube placement if clinically indicated to assess cystic duct patency. If cholecystectomy is not eventually performed and the infectious episode has resolved, the tube may be removed over a guidewire, preferably not less than 3 weeks after placement to allow time for a mature catheter tract to form to prevent bile leakage and peritonitis. Labs Labs: Laboratory Results - last 24 hr 08/27/25 08/27/25 08/28/25 11:31 18:18 00:31 WBC RBC Hgb Hct MCV MCH MCHC RDW Plt Count MPV % Immature Plt Fraction Sodium Potassium Chloride Carbon Dioxide Anion Gap BUN Creatinine Estim Creat Clear Calc Estimated GFR Glucose POC Capillary Glucose 94 130 H 110 H Calcium Magnesium Total Bilirubin AST ALT Alkaline Phosphatase Total Protein Albumin 08/28/25 03:46 WBC 6.7 RBC 5.50 Hgb 17.5 Hct 50.1 MCV 91.1 MCH 31.8 MCHC 34.9 RDW 12.0 Plt Count 120 L MPV 9.3 % Immature Plt Fraction 2.3 Sodium 135 L Potassium 3.8 Chloride 108 H Carbon Dioxide 21 L Anion Gap 6 BUN 29 H D Creatinine 1.29 Estim Creat Clear Calc 53 Estimated GFR 56 L Glucose 96 POC Capillary Glucose Calcium 8.4 Magnesium 2.7 H Total Bilirubin 9.3 H AST 254 H ALT 155 H Alkaline Phosphatase 207 H Total Protein 6.2 L Albumin 3.1 L
[2025-08-28] MEDS: ACETAMINOPHEN 325 MG TABLET 650 MG PO (14:38)
--- NOTE | 2025-08-28 16:10 | P.PNIM_ITS ---
Assessment and Plan Assessment and Plan (1) Acute cholecystitis: Code(s): K81.0 - Acute cholecystitis Status: Acute Assessment and Plan: Initial workup suggestive of acute cholecystitis, Elevated bilirubin, dilated biliary system on imaging, concern for choledocholithiasis, Report quadrant ultrasound shows acute cholecystitis * Surgery and GI consulted * IV fluids * NPO * Pain control IV Dilaudid * Obtain blood NGTD * IV ceftriaxone, Flagyl * Zofran p.r.n. * Plan for MRCP * IV PPI (2) Alcohol use disorder: Code(s): F10.90 - Alcohol use, unspecified, uncomplicated Status: Chronic Assessment and Plan: Patient with HX of ETOH abuse last drink was reported on Monday night 3 days ago. Denies ever having withdrawal symptoms in the past * Thiamine, folic acid, and multi-vitamin * PPI daily * Diazepam * Ativan PRN for seizure activity * CIWA daily * Monitor and replenish electrolytes as needed * Seizure precautions if indicated (3) Hypertension: Qualifiers: Hypertension type: primary hypertension Qualified Code(s): I10 - Essential (primary) hypertension Code(s): I10 - Essential (primary) hypertension Status: Chronic Assessment and Plan: patient with history of hypertension takes losartan at home however currently NPO is hypertensive * scheduled IV hydralazine while NPO * IV hydralazine as needed for systolic over 180 * monitor BP per unit protocol (4) Thrombocytopenia: Code(s): D69.6 - Thrombocytopenia, unspecified Status: Acute Assessment and Plan: likely secondary to current infection and alcohol abuse * trend platelets * no evidence of active bleed (5) Elevated bilirubin: Code(s): R17 - Unspecified jaundice Status: Acute Assessment and Plan: acute cholecystitis * GI consulted * [facility] today 07/27/2025 * NPO (6) Hepatic steatosis: Code(s): K76.0 - Fatty (change of) liver, not elsewhere classified Status: Chronic Assessment and Plan: * lipid panel pending (7) Enterocolitis: Code(s): K52.9 - Noninfective gastroenteritis and colitis, unspecified Status: Acute Assessment and Plan: CT abdomen suggestive colitis * IV Rocephin and Flagyl * IV fluids Plan Patient with abdominal pain was seen by the surgery service patient is not a candidate for surgery and recommended percutaneous cholecystostomy tube placement and which tolerated, stats feeling litter and abdominal pain is bhavik r, 50cc of bile was sent for the couture, today patient liver enzymes have spiked substantially his to total bilirubin jumped to 9.3 from 3.9 upon arrival seen surgery service and MRCP is ordered, will follow up, patient clinically will monitor. Code status: Full code per patient DVT prophylaxis: SCD's Stress ulcer prophylaxis: Protonix 40 daily PT/OT notes: NA Disposition: Patient continues admission for further evaluation of cholecystitis with consult to General surgery and GI MRCP pending for today. Patient also has history of alcohol abuse continue to monitor for alcohol withd benjamín patient ambulatory and plan will be to return home at discharge when medically stable. Subjective Date/time seen: 08/28/25 16:10 Interval history: Patient is a 65-year-old male who was admitted for acute cholecystitis ETOH abuse with consult to General surgery and GI. 08/26/2025: Assumed Care Patient continues with right ABD pain, mild tremors noted. Patient denied SOB, CP, N/V at time of visit. Patient with abdominal pain was seen by the surgery service patient is not a candidate for surgery and recommended percutaneous cholecystostomy tube placement and which tolerated, stats feeling litter and abdominal pain is better, 50cc of bile was sent for the couture, today patient liver enzymes have spiked substantially his to total bilirubin jumped to 9.3 from 3.9 upon arrival seen surgery service and MRCP is ordered, will follow up, patient clinically w ill monitor. Review of Systems Review of Systems: All systems reviewed & are unremarkable except as noted in HPI and below Exam Narrative: Patient is comfortable, NAD HEENT: eyes are clear and none icteric LUNGS:CTA HEART: RR S1S2 ABD: BS+, diffusely tender Lower extremities: no edema SKIN: nonjaundiced Neuro: grossly intact. Objective Data Vital Signs Vital Signs: Vital Signs - 24 hr 08/27/25 18:00 08/27/25 20:00 08/27/25 20:00 Temperature 37.0 C Pulse Rate 101 H 95 Pulse Rate [Right Radial Palpation] 101 H Respiratory Rate 24 H Blood Pressure 101/75 Pulse Oximetry 97 Oxygen Delivery Oxygen Flow Rate 08/27/25 20:00 08/27/25 20:00 08/27/25 20:26 Temperature Pulse Rate 110 H 106 H Pulse Rate [Right Radial Palpation] Respiratory Rate 20 Blood Pressure Pulse Oximetry 97 96 Oxygen Delivery Nasal Cannula Oxygen Flow Rate 3 2 08/27/25 22:00 08/28/25 00:00 08/28/25 00:00 Temperature Pulse Rate 97 Pulse Rate [Right Radial Palpation] 85 Respiratory Rate Blood Pressure Pulse Oximetry Oxygen Delivery Room Air Oxygen Flow Rate 08/28/25 00:00 08/28/25 00:00 08/28/25 02:00 Temperature 36.9 C Pulse Rate 79 74 92 Pulse Rate [Right Radial Palpation] Respiratory Rate 24 H Blood Pressure 121/86 Pulse Oximetry 100 Oxygen Delivery Oxygen Flow Rate 08/28/25 04:00 08/28/25 04:00 08/28/25 04:00 Temperature 36.9 C Pulse Rate 97 Pulse Rate [Right Radial Palpation] 97 Respiratory Rate 18 Blood Pressure 137/80 Pulse Oximetry 92 Oxygen Delivery Room Air Oxygen Flow Rate 08/28/25 04:00 08/28/25 06:00 08/28/25 08:00 Temperature 37.2 C Pulse Rate 97 95 96 Pulse Rate [Right Radial Palpation] Respiratory Rate 16 Blood Pressure 153/89 H Pulse Oximetry 96 Oxygen Delivery Oxygen Flow Rate 08/28/25 08:00 08/28/25 08:00 08/28/25 10:00 Temperature Pulse Rate 98 99 Pulse Rate [Right Radial Palpation] 97 Respiratory Rate Blood Pressure Pulse Oximetry Oxygen Delivery Oxygen Flow Rate 08/28/25 11:50 08/28/25 12:00 08/28/25 12:00 Temperature 36.9 C Pulse Rate 93 93 Pulse Rate [Right Radial Palpation] Respiratory Rate 16 Blood Pressure 151/95 H Pulse Oximetry 94 96 Oxygen Delivery Room Air Oxygen Flow Rate 08/28/25 14:00 08/28/25 14:40 Temperature Pulse Rate 121 H 118 H Pulse Rate [Right Radial Palpation] Respiratory Rate 20 Blood Pressure 105/72 Pulse Oximetry 98 Oxygen Delivery Oxygen Flow Rate Intake/Output Intake/Output: Intake & Output 08/25/25 08/26/25 08/27/25 08/28/25 23:59 23:59 23:59 23:59 Intake Total 1308.8 1550 1350 1440 Output Total 900 940 55 Balance 1308.8 008 650 1758 Meds/Results Medications: Active Medications Generic Name Dose Route Start Last Admin Trade Name Freq PRN Reason Stop Dose Admin Acetaminophen 650 mg 08/27/25 03:59 08/28/25 14:38 Acetaminophen 325 Mg Tablet PO 650 mg Q4H PRN Administration Mild Pain (1-3) or Fever Diazepam 5 - 10 mg 08/25/25 10:25 Diazepam Inj (*Crx) 10 Mg/2 Ml Syringe IV PUSH Q5M PRN CIWA > 15 Diazepam 10 mg 08/25/25 12:00 08/28/25 09:43 Diazepam Inj (*Crx) 10 Mg/2 Ml Syringe IV PUSH 08/29/25 11:59 10 mg HS CAROLYN Administration Taper Folic Acid 1 mg 08/26/25 09:00 08/28/25 08:48 Folic Acid 1 Mg/0.2 Ml Inj IV PUSH 1 mg DAILY CAROLYN Administration Hydralazine HCl 20 mg 08/26/25 10:36 Hydralazine Hcl 20 Mg/Ml Vial IV PUSH Q8H PRN Blood Pressure - High Hydralazine HCl 10 mg 08/26/25 11:00 08/28/25 12:31 Hydralazine Hcl 20 Mg/Ml Vial IV PUSH 10 mg Q8H CAROLYN Administration Hydromorphone HCl 0.5 mg 08/25/25 07:53 08/28/25 08:47 Hydromorphone Hcl Inj (*Crx) 1 Mg/Ml Syr IV PUSH 0.5 mg Q4H PRN Administration Pain Rated 7-10 Ceftriaxone Sodium 1 gm/ 50 mls @ 100 mls/hr 08/26/25 09:00 08/28/25 08:48 Sodium Chloride IVPB 100 mls/hr Q24H CAROLYN Administration Metronidazole 500 mg in 100 mls @ 100 mls/hr 08/25/25 18:00 08/28/25 09:45 Flagyl 500 Mg/Iso Soln 100 Ml IVPB 100 mls/hr Q8H CAROLYN Administration Sodium Chloride 1,000 mls @ 75 mls/hr 08/25/25 16:15 08/28/25 02:03 Normal Saline Iv IV CONT 75 mls/hr .[id number] CAROLYN Administration Ondansetron HCl 4 mg 08/25/25 10:22 Ondansetron Inj 4 Mg/2 Ml Vial IV PUSH Q4HR PRN nausea/vominting Pantoprazole Sodium 40 mg 08/25/25 21:00 08/28/25 08:47 Pantoprazole Sodium Iv 40 Mg Vial IV PUSH 40 mg Q12HR CAROLYN Administration Thiamine HCl 100 mg 08/26/25 09:00 08/28/25 08:47 Thiamine Hcl 200 Mg/2 Ml Vial IV PUSH 100 mg DAILY CAROLYN Administration Radiology Results: ITS Impressions Abdomen/Pelvis CTA 08/25/25 06:38 IMPRESSION: 1. Worrisome for acute cholecystitis. 2. Suspect enterocolitis. 3. Suspect gastritis. 4. No evidence of active bleed. Chest X-Ray 08/25/25 07:06 IMPRESSION: 1. No acute cardiopulmonary findings given portable technique. Upper Quadrant Ultrasound 08/25/25 11:18 IMPRESSION: 1. Consistent with acute cholecystitis. Cholecystostomy 08/27/25 12:50 IMPRESSION: 1. Successful ultrasound-guided cholecystostomy tube placement. 2. 50 mL bile was sent for aerobic, anaerobic, and fungal cultures. 3. The catheter will be managed by Dr. Preston. A catheter cholangiogram may be performed not less than 48 hours after tube placement if clinically indicated to assess cystic duct patency. If cholecystectomy is not eventually performed and the infectious episode has resolved, the tube may be removed over a guidewire, preferably not less than 3 weeks after placement to allow time for a mature catheter tract to form to prevent bile leakage and peritonitis. Labs Labs: Laboratory Results - last 24 hr 08/27/25 08/28/25 08/28/25 18:18 00:31 03:46 WBC 6.7 RBC 5.50 Hgb 17.5 Hct 50.1 MCV 91.1 MCH 31.8 MCHC 34.9 RDW 12.0 Plt Count 120 L MPV 9.3 % Immature Plt Fraction 2.3 Sodium 135 L Potassium 3.8 Chloride 108 H Carbon Dioxide 21 L Anion Gap 6 BUN 29 H D Creatinine 1.29 Estim Creat Clear Calc 53 Estimated GFR 56 L Glucose 96 POC Capillary Glucose 130 H 110 H Calcium 8.4 Magnesium 2.7 H Total Bilirubin 9.3 H AST 254 H ALT 155 H Alkaline Phosphatase 207 H Total Protein 6.2 L Albumin 3.1 L 08/28/25 12:21 WBC RBC Hgb Hct MCV MCH MCHC RDW Plt Count MPV % Immature Plt Fraction Sodium Potassium Chloride Carbon Dioxide Anion Gap BUN Creatinine Estim Creat Clear Calc Estimated GFR Glucose POC Capillary Glucose 85 Calcium Magnesium Total Bilirubin AST ALT Alkaline Phosphatase Total Protein Albumin Quality VTE Prophylaxis VTE prophylaxis: mechanical ordered
--- NOTE | 2025-08-28 17:33 | WPDGIPROGNO ---
Progress Note: A&P Assessment and Plan (1) Acute cholecystitis: Code(s): K81.0 - Acute cholecystitis Status: Acute Assessment and Plan: on antibiotic underwent yesterday cholecystostomy tube as acute treatment after SIRS with fever today noted worsening liver enzymes but symptomatically is better plan is to get MRCP to assess biliary system vs cholangiogram using cholecystostomy eventually will need cholecystectomy (2) SIRS (systemic inflammatory response syndrome): Code(s): R65.10 - Systemic inflammatory response syndrome (SIRS) of non-infectious origin without acute organ dysfunction Status: Acute Assessment and Plan: source GB, had fever and leukocytosis on antibiotics (3) Elevated bilirubin: Code(s): R17 - Unspecified jaundice Status: Acute Assessment and Plan: from cholecystitis but worse today we need to assess biliary system (4) Abdominal pain: Qualifiers: Abdominal location: right upper quadrant Qualified Code(s): R10.11 - Right upper quadrant pain Code(s): R10.9 - Unspecified abdominal pain Status: Acute (5) Hepatic steatosis: Code(s): K76.0 - Fatty (change of) liver, not elsewhere classified Status: Chronic (6) Alcohol use disorder: Code(s): F10.90 - Alcohol use, unspecified, uncomplicated Status: Chronic Assessment and Plan: thiamine Subjective Date/time seen: 08/28/25 17:33 Interval history: he is feeling better today with less pain Review of Systems Review of Systems: All systems reviewed & are unremarkable except as noted in HPI and below Exam Const: General: comfortable and no acute distress HENMT: Face/Nose/Sinus: Normal nares present Eyes: Sclera: scleral abnormality (icteric) Neck: Neck: supple Resp: Effort & Inspection: normal respiratory effort Cardio: Rate: regular rate GI: Inspection: non-distended GI Palp: Yes Soft to palpation, No Tenderness to palpation present (GI) (much improved, no tenderness today), No Guarding due to palpation present (GI) and No Rebound tenderness present Auscultation: Hypoactive bowel sounds present Other: Right lateral percutaneous cholecystostomy tube with clear light-colored yellow/green bile. Skin: General skin exam: jaundice Neuro: Speech: normal speech Motor exam (neuro): 5/5 motor strength present throughout Extrem: General: normal to inspection Psych: Mental Status: mental status grossly normal Objective Data Vital Signs Vital Signs: Vital Signs - 24 hr 12/10/25 18:00 08/27/25 20:00 08/27/25 20:00 Temperature 98.6 F Pulse Rate 101 H 95 Pulse Rate [Right Radial Palpation] 101 H Respiratory Rate 24 H Blood Pressure 101/75 Pulse Oximetry 97 Oxygen Delivery Oxygen Flow Rate 08/27/25 20:00 08/27/25 20:00 08/27/25 20:26 Temperature Pulse Rate 110 H 106 H Pulse Rate [Right Radial Palpation] Respiratory Rate 20 Blood Pressure Pulse Oximetry 97 96 Oxygen Delivery Nasal Cannula Oxygen Flow Rate 3 2 08/27/25 22:00 08/28/25 00:00 08/28/25 00:00 Temperature Pulse Rate 97 Pulse Rate [Right Radial Palpation] 85 Respiratory Rate Blood Pressure Pulse Oximetry Oxygen Delivery Room Air Oxygen Flow Rate 08/28/25 00:00 08/28/25 00:00 08/28/25 02:00 Temperature 98.4 F Pulse Rate 79 74 92 Pulse Rate [Right Radial Palpation] Respiratory Rate 24 H Blood Pressure 121/86 Pulse Oximetry 100 Oxygen Delivery Oxygen Flow Rate 08/28/25 04:00 08/28/25 04:00 08/28/25 04:00 Temperature 98.5 F Pulse Rate 97 Pulse Rate [Right Radial Palpation] 97 Respiratory Rate 18 Blood Pressure 137/80 Pulse Oximetry 92 Oxygen Delivery Room Air Oxygen Flow Rate 08/28/25 04:00 08/28/25 06:00 08/28/25 08:00 Temperature 98.9 F Pulse Rate 97 95 96 Pulse Rate [Right Radial Palpation] Respiratory Rate 16 Blood Pressure 153/89 H Pulse Oximetry 96 Oxygen Delivery Oxygen Flow Rate 08/28/25 08:00 08/28/25 08:00 08/28/25 10:00 Temperature Pulse Rate 98 99 Pulse Rate [Right Radial Palpation] 97 Respiratory Rate Blood Pressure Pulse Oximetry Oxygen Delivery Oxygen Flow Rate 08/28/25 11:50 08/28/25 12:00 08/28/25 12:00 Temperature 98.4 F Pulse Rate 93 93 Pulse Rate [Right Radial Palpation] Respiratory Rate 16 Blood Pressure 151/95 H Pulse Oximetry 94 96 Oxygen Delivery Room Air Oxygen Flow Rate 08/28/25 14:00 08/28/25 14:40 08/28/25 16:00 Temperature Pulse Rate 121 H 118 H 100 Pulse Rate [Right Radial Palpation] Respiratory Rate 20 Blood Pressure 105/72 Pulse Oximetry 98 Oxygen Delivery Oxygen Flow Rate Intake/Output Intake/Output: Intake & Output 08/25/25 08/26/25 08/27/25 08/28/25 23:59 23:59 23:59 23:59 Intake Total 1308.8 1550 1350 2540 Output Total 900 940 55 Balance 1308.8 180 770 4669 Meds/Results Medications: Active Medications Generic Name Dose Route Start Last Admin Trade Name Freq PRN Reason Stop Dose Admin Acetaminophen 650 mg 08/27/25 03:59 08/28/25 14:38 Acetaminophen 325 Mg Tablet PO 650 mg Q4H PRN Administration Mild Pain (1-3) or Fever Diazepam 5 - 10 mg 08/25/25 10:25 Diazepam Inj (*Crx) 10 Mg/2 Ml Syringe IV PUSH Q5M PRN CIWA > 15 Diazepam 10 mg 08/25/25 12:00 08/28/25 09:43 Diazepam Inj (*Crx) 10 Mg/2 Ml Syringe IV PUSH 08/29/25 11:59 10 mg HS CAROLYN Administration Taper Folic Acid 1 mg 08/26/25 09:00 08/28/25 08:48 Folic Acid 1 Mg/0.2 Ml Inj IV PUSH 1 mg DAILY CAROLYN Administration Hydralazine HCl 10 mg 08/28/25 16:48 Hydralazine Hcl 20 Mg/Ml Vial IV PUSH Q8H PRN Blood Pressure - High Hydromorphone HCl 0.5 mg 08/25/25 07:53 08/28/25 08:47 Hydromorphone Hcl Inj (*Crx) 1 Mg/Ml Syr IV PUSH 0.5 mg Q4H PRN Administration Pain Rated 7-10 Ceftriaxone Sodium 1 gm/ 50 mls @ 100 mls/hr 08/26/25 09:00 08/28/25 08:48 Sodium Chloride IVPB 100 mls/hr Q24H CAROLYN Administration Metronidazole 500 mg in 100 mls @ 100 mls/hr 08/25/25 18:00 08/28/25 17:08 Flagyl 500 Mg/Iso Soln 100 Ml IVPB 100 mls/hr Q8H CAROLYN Administration Sodium Chloride 1,000 mls @ 75 mls/hr 08/25/25 16:15 08/28/25 17:09 Normal Saline Iv IV CONT 75 mls/hr .[id number] CAROLYN Administration Ondansetron HCl 4 mg 08/25/25 10:22 Ondansetron Inj 4 Mg/2 Ml Vial IV PUSH Q4HR PRN nausea/vominting Pantoprazole Sodium 40 mg 08/25/25 21:00 08/28/25 08:47 Pantoprazole Sodium Iv 40 Mg Vial IV PUSH 40 mg Q12HR CAROLYN Administration Thiamine HCl 100 mg 08/26/25 09:00 08/28/25 08:47 Thiamine Hcl 200 Mg/2 Ml Vial IV PUSH 100 mg DAILY CAROLYN Administration Radiology Results: ITS Impressions Abdomen/Pelvis CTA 08/25/25 06:38 IMPRESSION: 1. Worrisome for acute cholecystitis. 2. Suspect enterocolitis. 3. Suspect gastritis. 4. No evidence of active bleed. Chest X-Ray 08/25/25 07:06 IMPRESSION: 1. No acute cardiopulmonary findings given portable technique. Upper Quadrant Ultrasound 08/25/25 11:18 IMPRESSION: 1. Consistent with acute cholecystitis. Cholecystostomy 08/27/25 12:50 IMPRESSION: 1. Successful ultrasound-guided cholecystostomy tube placement. 2. 50 mL bile was sent for aerobic, anaerobic, and fungal cultures. 3. The catheter will be managed by Dr. Preston. A catheter cholangiogram may be performed not less than 48 hours after tube placement if clinically indicated to assess cystic duct patency. If cholecystectomy is not eventually performed and the infectious episode has resolved, the tube may be removed over a guidewire, preferably not less than 3 weeks after placement to allow time for a mature catheter tract to form to prevent bile leakage and peritonitis. Labs Labs: Laboratory Results - last 24 hr 08/27/25 08/28/25 08/28/25 18:18 00:31 03:46 WBC 6.7 RBC 5.50 Hgb 17.5 Hct 50.1 MCV 91.1 MCH 31.8 MCHC 34.9 RDW 12.0 Plt Count 120 L MPV 9.3 % Immature Plt Fraction 2.3 Sodium 135 L Potassium 3.8 Chloride 108 H Carbon Dioxide 21 L Anion Gap 6 BUN 29 H D Creatinine 1.29 Estim Creat Clear Calc 53 Estimated GFR 56 L Glucose 96 POC Capillary Glucose 130 H 110 H Calcium 8.4 Magnesium 2.7 H Total Bilirubin 9.3 H AST 254 H ALT 155 H Alkaline Phosphatase 207 H Total Protein 6.2 L Albumin 3.1 L 08/28/25 08/28/25 12:21 17:06 WBC RBC Hgb Hct MCV MCH MCHC RDW Plt Count MPV % Immature Plt Fraction Sodium Potassium Chloride Carbon Dioxide Anion Gap BUN Creatinine Estim Creat Clear Calc Estimated GFR Glucose POC Capillary Glucose 85 84 Calcium Magnesium Total Bilirubin AST ALT Alkaline Phosphatase Total Protein Albumin
[2025-08-29] VITALS (13 sets, daily range): BP systolic 133–158; BP diastolic 77–99; PULSE 72–106; RESP 16–24; TEMP 36.4–36.8; O2SAT 94–100
[2025-08-29] MEDS: HYDROmorphone HCL INJ (*CRX) 1 MG/ML SYR 0.5 MG IV PUSH ×2 (00:13→06:32)
[2025-08-29] MEDS: metroNIDAZOLE 500 MG/ISO 100ML 500 MG/100 ML BAG 100 MG IVPB ×3 (01:41→17:56)
[2025-08-29 04:15] LABS: Hematocrit 47.6 % (42.0-52.0); Hemoglobin 16.1 g/dL (14.0-18.0); Immature Platelet Fraction Pct 2.1 % (0.9-11.2); Mean Corpuscular HGB Conc 33.8 g/dl (32-36); Mean Corpuscular Hemoglobin 31.8 pg (26-34); Mean Corpuscular Volume 93.9 fl (80-100); Platelet Count Result 117 k/mm3 (150-375); Red Blood Count 5.07 M/mm3 (4.6-6.20); White Blood Count 4.9 K/mm3 (4.5-10.0)
[2025-08-29 04:28] LABS: Alanine Aminotransferase 96 U/L (6-50); Albumin Level 3.1 g/dL (3.5-5.1); Alkaline Phosphatase 165 U/L (38-126); Anion Gap 3 mmol/L (4-12); Aspartate Amino Transferase 66 U/L (17-59); Bilirubin,Total 2.6 mg/dL (0.2-1.3); Blood Urea Nitrogen 28 mg/dL (9-20); Calcium 8.3 mg/dL (8.4-10.2); Carbon Dioxide 27 mmol/L (22-30); Chloride 105 mmol/L (98-107); Estimated CRCL calculation 56 ml/min; Estimated Glomerular Filt Rate 59; Glucose 82 mg/dL (65-110); Magnesium 2.6 mg/dL (1.6-2.3); Potassium 3.5 mmol/L (3.4-5.0); Sodium 135 mmol/L (137-145); Total Protein 5.9 g/dL (6.3-8.2)
[2025-08-29 04:59] LABS: Hepatitis B Surface Antigen Negative (Negative)
[2025-08-29 05:04] LABS: HAV RESULT Negative (Negative); Hepatitis B Core IgM Result Negative (Negative)
[2025-08-29] MEDS: cefTRIAXone 1 GM in SODIUM CHLORIDE 0.9% IV 50 ML 100 ML IVPB (09:27)
[2025-08-29] MEDS: THIAMINE HCL 200 MG/2 ML VIAL 100 MG IV PUSH (09:28)
[2025-08-29] MEDS: PANTOPRAZOLE SODIUM IV 40 MG VIAL IV PUSH ×2 (09:28→21:38)
[2025-08-29] MEDS: FOLIC ACID 1 MG/0.2 ML INJ IV PUSH (09:29)
[2025-08-29] MEDS: SODIUM CHLORIDE 0.9% IV 1,000 ML 75 ML IV CONT (09:31)
--- NOTE | 2025-08-29 09:54 | P.PNIM_ITS ---
Assessment and Plan Assessment and Plan (1) Acute cholecystitis: Code(s): K81.0 - Acute cholecystitis Status: Acute Assessment and Plan: Initial workup suggestive of acute cholecystitis, Elevated bilirubin, dilated biliary system on imaging, concern for choledocholithiasis, Report quadrant ultrasound shows acute cholecystitis. Surgery and GI consulted. Started on IV fluids. Was NPO, now diet advanced. Started on empiric Ceftriaxone and Flagyl * Monitor off fluids * diet advanced to low fat today * Pain control: Schedule acetaminophen 650mg TID, Oxycodone 10mg q4 prn, IV Dilaudid 0.5mg q4 prn * Obtain blood NGTD * Continue ceftriaxone, Flagyl 08/26-present * Abdi p.r.nMadeline * IV PPI (2) Alcohol use disorder: Code(s): F10.90 - Alcohol use, unspecified, uncomplicated Status: Chronic Assessment and Plan: Patient with HX of ETOH abuse last drink was reported on Monday night 3 days ago. Denies ever having withdrawal symptoms in the past * Thiamine, folic acid, and multi-vitamin * PPI daily * Diazepam * Ativan PRN for seizure activity * CIWA daily * Monitor and replenish electrolytes as needed * Seizure precautions if indicated (3) Hypertension: Qualifiers: Hypertension type: primary hypertension Qualified Code(s): I10 - Essential (primary) hypertension Code(s): I10 - Essential (primary) hypertension Status: Chronic Assessment and Plan: patient with history of hypertension takes losartan at home however currently NPO is hypertensive * scheduled IV hydralazine while NPO * IV hydralazine as needed for systolic over 180 * monitor BP per unit protocol (4) Thrombocytopenia: Code(s): D69.6 - Thrombocytopenia, unspecified Status: Acute Assessment and Plan: likely secondary to current infection and alcohol abuse * trend platelets * no evidence of active bleed (5) Elevated bilirubin: Code(s): R17 - Unspecified jaundice Status: Acute Assessment and Plan: LFT's improving * GI & surgery consulted, appreciate recommendations * Treatment of acute cholecystitis as noted (6) Hepatic steatosis: Code(s): K76.0 - Fatty (change of) liver, not elsewhere classified Status: Chronic Assessment and Plan: * lipid panel pending (7) Enterocolitis: Code(s): K52.9 - Noninfective gastroenteritis and colitis, unspecified Status: Acute Assessment and Plan: CT abdomen suggestive colitis * IV Rocephin and Flagyl Plan Patient with abdominal pain was seen by the surgery service patient is not a candidate for surgery and recommended percutaneous cholecystostomy tube placement and which tolerated, stats feeling better and abdominal pain is better but still requiring IV dilaudid 50cc of bilious fluid sent for culture. MRCP cancelled by surgery and cholecystomy tube placed. LFT's improving s/p cholecystostomy tube placement 08/27 1. Successful ultrasound-guided cholecystostomy tube placement. 2. 50 mL bile was sent for aerobic, anaerobic, and fungal cultures. 3. The catheter will be managed by Dr. Presotn. A catheter cholangiogram may be performed not less than 48 hours after tube placement if clinically indicated to assess cystic duct patency. If cholecystectomy is not eventually performed and the infectious episode has resolved, the tube may be removed over a guidewire, preferably not less than 3 weeks after placement to allow time for a mature catheter tract to form to prevent bile leakage and peritonitis. PT/OT notes: NA Disposition: Patient continues admission for further evaluation of cholecystitis with consult to General surgery s/p cholesystomy tube placement. No evidence of alcohol withdrawal, monitored since hx alcohol abuse Code status: Full code per patient DVT prophylaxis: SCD's Stress ulcer prophylaxis: Protonix 40 daily Subjective Date/time seen: 08/29/25 09:54 Interval history: Bilirubin down from 9.3>2.6 today. Urine dark but reportedly improving and drinking well. Creatinine has been downtrending. also. Stopping fluids WBC 11.9>6.7>4.9 VSS 3L O2 weaned off, has been using it with sleep but otherwise has been off. Still requiring IV dilaudid CXR cardiomegaly, clear lungs 08/25. No prior echo. On a clear liquid diet and fluids Reports weakness, unsteadiness. PT/OT ordered, will consider rehab. Family worried about him being at home OK to move out of IMU Review of Systems Review of Systems: All systems reviewed & are unremarkable except as noted in HPI and below Exam Narrative: General - Awake and alert. No acute distress Eyes - PERRLA, EOM intact ENT - No thrush, No erythema Neck - No noticeable or palpable swelling Lymph Nodes - No lymphadenopathy Cardiovascular - RRR no m/r/g, no JVD Lungs: Decreased all lobes, no wheezes, rare end expiratory crackles Skin - Skin warm and dry, no wounds or rashes Abdomen - Normal bowel sounds, abdomen soft, mild TTP right side. Drain with serosanguinous drainage Extremities - No edema, cyanosis or clubbing Musculoskeletal - 5/5 strength, normal range of motion, no swollen or erythematous joints. Neurological ? Alert and oriented x 3, CN 2-12 grossly intact. Psych: Normal mood and affect Objective Data Vital Signs Vital Signs: Vital Signs - 24 hr 08/28/25 10:00 08/28/25 11:50 08/28/25 12:00 Temperature 98.4 F Pulse Rate 99 93 Pulse Rate [Right Radial Palpation] Respiratory Rate 16 Blood Pressure 151/95 H Pulse Oximetry 94 96 Oxygen Delivery Room Air Oxygen Flow Rate 08/28/25 12:00 08/28/25 14:00 08/28/25 14:40 Temperature Pulse Rate 93 121 H 118 H Pulse Rate [Right Radial Palpation] Respiratory Rate 20 Blood Pressure 105/72 Pulse Oximetry 98 Oxygen Delivery Oxygen Flow Rate 08/28/25 16:00 08/28/25 16:00 08/28/25 18:00 Temperature 98.1 F Pulse Rate 100 94 103 H Pulse Rate [Right Radial Palpation] Respiratory Rate 16 Blood Pressure 131/94 H Pulse Oximetry 99 Oxygen Delivery Oxygen Flow Rate 08/28/25 20:00 08/28/25 20:00 08/28/25 20:00 Temperature 97.8 F Pulse Rate 84 84 Pulse Rate [Right Radial Palpation] 81 Respiratory Rate 16 16 Blood Pressure 119/75 Pulse Oximetry 96 96 Oxygen Delivery Room Air Oxygen Flow Rate 08/28/25 20:00 08/28/25 22:00 08/29/25 00:00 Temperature 98.2 F Pulse Rate 93 80 76 Pulse Rate [Right Radial Palpation] Respiratory Rate 18 Blood Pressure 147/90 H Pulse Oximetry 96 Oxygen Delivery Oxygen Flow Rate 08/29/25 00:00 08/29/25 00:00 08/29/25 00:00 Temperature Pulse Rate 81 76 Pulse Rate [Right Radial Palpation] 81 Respiratory Rate 18 Blood Pressure 147/90 H Pulse Oximetry 96 Oxygen Delivery Nasal Cannula Oxygen Flow Rate 3 08/29/25 02:00 08/29/25 04:00 08/29/25 04:00 Temperature 98.1 F Pulse Rate 79 83 Pulse Rate [Right Radial Palpation] 74 Respiratory Rate 20 Blood Pressure 152/99 H Pulse Oximetry 97 Oxygen Delivery Oxygen Flow Rate 08/29/25 04:00 08/29/25 04:00 08/29/25 06:00 Temperature Pulse Rate 78 76 Pulse Rate [Right Radial Palpation] Respiratory Rate Blood Pressure Pulse Oximetry 98 Oxygen Delivery Nasal Cannula Oxygen Flow Rate 3 08/29/25 08:00 Temperature 98 F Pulse Rate 93 Pulse Rate [Right Radial Palpation] Respiratory Rate 20 Blood Pressure 154/93 H Pulse Oximetry 96 Oxygen Delivery Oxygen Flow Rate Intake/Output Intake/Output: Intake & Output 08/26/25 08/27/25 08/28/25 08/29/25 23:59 23:59 23:59 23:59 Intake Total 1550 1350 3080 1350 Output Total 900 940 710 500 Balance 132 690 2161 850 Meds/Results Medications: Active Medications Generic Name Dose Route Start Last Admin Trade Name Freq PRN Reason Stop Dose Admin Acetaminophen 650 mg 08/27/25 03:59 08/28/25 14:38 Acetaminophen 325 Mg Tablet PO 650 mg Q4H PRN Administration Mild Pain (1-3) or Fever Diazepam 5 - 10 mg 08/25/25 10:25 Diazepam Inj (*Crx) 10 Mg/2 Ml Syringe IV PUSH Q5M PRN CIWA > 15 Diazepam 10 mg 08/25/25 12:00 08/28/25 20:33 Diazepam Inj (*Crx) 10 Mg/2 Ml Syringe IV PUSH 08/29/25 11:59 10 mg HS CAROLYN Administration Taper Folic Acid 1 mg 08/26/25 09:00 08/29/25 09:29 Folic Acid 1 Mg/0.2 Ml Inj IV PUSH 1 mg DAILY CAROLYN Administration Hydralazine HCl 10 mg 08/28/25 16:48 Hydralazine Hcl 20 Mg/Ml Vial IV PUSH Q8H PRN Blood Pressure - High Hydromorphone HCl 0.5 mg 08/25/25 07:53 08/29/25 06:32 Hydromorphone Hcl Inj (*Crx) 1 Mg/Ml Syr IV PUSH 0.5 mg Q4H PRN Administration Pain Rated 7-10 Ceftriaxone Sodium 1 gm/ 50 mls @ 100 mls/hr 08/26/25 09:00 08/29/25 09:27 Sodium Chloride IVPB 100 mls/hr Q24H CAROLYN Administration Metronidazole 500 mg in 100 mls @ 100 mls/hr 08/25/25 18:00 08/29/25 02:41 Flagyl 500 Mg/Iso Soln 100 Ml IVPB Infused Q8H CAROLYN Infusion Sodium Chloride 1,000 mls @ 75 mls/hr 08/25/25 16:15 08/29/25 09:31 Normal Saline Iv IV CONT 75 mls/hr .[id number] CAROLYN Administration Ondansetron HCl 4 mg 08/25/25 10:22 Ondansetron Inj 4 Mg/2 Ml Vial IV PUSH Q4HR PRN nausea/vominting Pantoprazole Sodium 40 mg 08/25/25 21:00 08/29/25 09:28 Pantoprazole Sodium Iv 40 Mg Vial IV PUSH 40 mg Q12HR CAROLYN Administration Thiamine HCl 100 mg 08/26/25 09:00 08/29/25 09:28 Thiamine Hcl 200 Mg/2 Ml Vial IV PUSH 100 mg DAILY CAROLYN Administration Radiology Results: ITS Impressions Abdomen/Pelvis CTA 08/25/25 06:38 IMPRESSION: 1. Worrisome for acute cholecystitis. 2. Suspect enterocolitis. 3. Suspect gastritis. 4. No evidence of active bleed. Chest X-Ray 08/25/25 07:06 IMPRESSION: 1. No acute cardiopulmonary findings given portable technique. Upper Quadrant Ultrasound 08/25/25 11:18 IMPRESSION: 1. Consistent with acute cholecystitis. Cholecystostomy 08/27/25 12:50 IMPRESSION: 1. Successful ultrasound-guided cholecystostomy tube placement. 2. 50 mL bile was sent for aerobic, anaerobic, and fungal cultures. 3. The catheter will be managed by Dr. Preston. A catheter cholangiogram may be performed not less than 48 hours after tube placement if clinically indicated to assess cystic duct patency. If cholecystectomy is not eventually performed and the infectious episode has resolved, the tube may be removed over a guidewire, preferably not less than 3 weeks after placement to allow time for a mature catheter tract to form to prevent bile leakage and peritonitis. Labs Labs: Laboratory Results - last 24 hr 08/28/25 08/28/25 08/28/25 12:21 17:06 20:08 WBC RBC Hgb Hct MCV MCH MCHC RDW Plt Count MPV % Immature Plt Fraction Sodium Potassium Chloride Carbon Dioxide Anion Gap BUN Creatinine Estim Creat Clear Calc Estimated GFR Glucose POC Capillary Glucose 85 84 109 H Calcium Magnesium Total Bilirubin AST ALT Alkaline Phosphatase Total Protein Albumin Hepatitis A IgM Ab Hep Bs Antigen Hep B Core IgM Ab Hepatitis C Ab Screen 08/28/25 08/29/25 08/29/25 23:56 01:52 04:00 WBC 4.9 RBC 5.07 Hgb 16.1 Hct 47.6 MCV 93.9 MCH 31.8 MCHC 33.8 RDW 12.1 Plt Count 117 L MPV 9.0 % Immature Plt Fraction 2.1 Sodium 135 L Potassium 3.5 Chloride 105 Carbon Dioxide 27 Anion Gap 3 L BUN 28 H Creatinine 1.24 Estim Creat Clear Calc 56 Estimated GFR 59 Glucose 82 POC Capillary Glucose 72 94 Calcium 8.3 L Magnesium 2.6 H Total Bilirubin 2.6 H AST 66 H ALT 96 H Alkaline Phosphatase 165 H Total Protein 5.9 L Albumin 3.1 L Hepatitis A IgM Ab Negative Hep Bs Antigen Negative Hep B Core IgM Ab Negative Hepatitis C Ab Screen Negative 08/29/25 06:24 WBC RBC Hgb Hct MCV MCH MCHC RDW Plt Count MPV % Immature Plt Fraction Sodium Potassium Chloride Carbon Dioxide Anion Gap BUN Creatinine Estim Creat Clear Calc Estimated GFR Glucose POC Capillary Glucose 75 Calcium Magnesium Total Bilirubin AST ALT Alkaline Phosphatase Total Protein Albumin Hepatitis A IgM Ab Hep Bs Antigen Hep B Core IgM Ab Hepatitis C Ab Screen Quality VTE Prophylaxis VTE prophylaxis: mechanical ordered Hospitalist [facility] Advance Care Plan I have confirmed that the patient's Advanced Care Plan is present, code status is documented, or surrogate decision maker is listed in patient medical record.: Yes Medication Reconciliation I have utilized all available resources to obtain, update and review the p atients current medications (includes all prescriptions, OTC, herbals, cannabis, and nutritional supplements).: Yes
--- NOTE | 2025-08-29 10:41 | P.PNGS_ITS ---
Progress Note: A&P Assessment and Plan (1) Acute cholecystitis: Code(s): K81.0 - Acute cholecystitis Status: Acute Assessment and Plan: * Very minimal abdominal pain and tenderness today. Patient tolerating clear liquids without any nausea or vomiting. Will advance diet as tolerated. * Continue to monitor cholecystostomy tube minimal amount of blood tinged fluid present in the bag today. Cultures are still pending. * Continue IV antibiotics while patient is in the hospital. Upon discharge, he will need a total of 10 days of oral antibiotics. * Surgically stable for discharge from general surgery standpoint. (2) Elevated bilirubin: Code(s): R17 - Unspecified jaundice Status: Acute Assessment and Plan: * LFTs better today with bilirubin back down to 2.6 from 9.3. MRCP canceled at that is no longer necessary. * Surgically stable for discharge with follow-up in general surgery clinic in 2- 3 weeks to discuss interval cholecystectomy. We will sign off at this time. (3) Alcohol use disorder: Code(s): F10.90 - Alcohol use, unspecified, uncomplicated Status: Chronic Assessment and Plan: * Discussed again the importance of alcohol cessation (4) Hypertension: Qualifiers: Hypertension type: primary hypertension Qualified Code(s): I10 - Essential (primary) hypertension Code(s): I10 - Essential (primary) hypertension Status: Chronic (5) Thrombocytopenia: Code(s): D69.6 - Thrombocytopenia, unspecified Status: Acute Assessment and Plan: * Platelets 117,000, continue to monitor, could be related to liver disease (6) Hepatic steatosis: Code(s): K76.0 - Fatty (change of) liver, not elsewhere classified Status: Chronic (7) History of bowel resection: Code(s): Z90.49 - Acquired absence of other specified parts of digestive tract Status: Resolved Assessment and Plan: * Low anterior resection with colostomy in 2007 for acute perforated diverticulitis by Dr. More, with eventual laparoscopic colostomy takedown a few months later. Plan I have discussed the patient's case, recommendations, and treatment plan with Dr. Preston. Subjective Subjective Date/Time Seen: 08/29/25 10:41 Patient reports: no new complaints, feels better, tolerating liquids well, bowel movement and afebrile Interval history: Patient doing well this morning. Sitting up in chair eating clear liquids. Drain functioning appropriately. Normal white blood cell count. Bilirubin decreased from 9.3-2.6, so MRCP was canceled. AST/ALT and ALP all decreased from yesterday. Exam GI: Inspection: non-distended Auscultation: normal bowel sounds Rectal Exam: deferred Other: Right lateral percutaneous cholecystostomy tube with blood tinged light-colored yellow/green bile. Bloody output likely just from trauma to the area. Objective Data Vital Signs Vital Signs: Vital Signs - 24 hr 08/28/25 11:50 08/28/25 12:00 08/28/25 12:00 Temperature 98.4 F Pulse Rate 93 93 Pulse Rate [Right Radial Palpation] Respiratory Rate 16 Blood Pressure 151/95 H Pulse Oximetry 94 96 Oxygen Delivery Room Air Oxygen Flow Rate 08/28/25 14:00 08/28/25 14:40 08/28/25 16:00 Temperature Pulse Rate 121 H 118 H 100 Pulse Rate [Right Radial Palpation] Respiratory Rate 20 Blood Pressure 105/72 Pulse Oximetry 98 Oxygen Delivery Oxygen Flow Rate 08/28/25 16:00 08/28/25 18:00 08/28/25 20:00 Temperature 98.1 F Pulse Rate 94 103 H Pulse Rate [Right Radial Palpation] 81 Respiratory Rate 16 Blood Pressure 131/94 H Pulse Oximetry 99 Oxygen Delivery Oxygen Flow Rate 08/28/25 20:00 08/28/25 20:00 08/28/25 20:00 Temperature 97.8 F Pulse Rate 84 84 93 Pulse Rate [Right Radial Palpation] Respiratory Rate 16 16 Blood Pressure 119/75 Pulse Oximetry 96 96 Oxygen Delivery Room Air Oxygen Flow Rate 08/28/25 22:00 08/29/25 00:00 08/29/25 00:00 Temperature 98.2 F Pulse Rate 80 76 81 Pulse Rate [Right Radial Palpation] Respiratory Rate 18 Blood Pressure 147/90 H Pulse Oximetry 96 Oxygen Delivery Oxygen Flow Rate 08/29/25 00:00 08/29/25 00:00 08/29/25 02:00 Temperature Pulse Rate 76 79 Pulse Rate [Right Radial Palpation] 81 Respiratory Rate 18 Blood Pressure 147/90 H Pulse Oximetry 96 Oxygen Delivery Nasal Cannula Oxygen Flow Rate 3 08/29/25 04:00 08/29/25 04:00 08/29/25 04:00 Temperature 98.1 F Pulse Rate 83 Pulse Rate [Right Radial Palpation] 74 Respiratory Rate 20 Blood Pressure 152/99 H Pulse Oximetry 97 98 Oxygen Delivery Nasal Cannula Oxygen Flow Rate 3 08/29/25 04:00 08/29/25 06:00 08/29/25 08:00 Temperature 98 F Pulse Rate 78 76 93 Pulse Rate [Right Radial Palpation] Respiratory Rate 20 Blood Pressure 154/93 H Pulse Oximetry 96 Oxygen Delivery Oxygen Flow Rate Intake/Output Intake/Output: Intake & Output 08/26/25 08/27/25 08/28/25 08/29/25 23:59 23:59 23:59 23:59 Intake Total 1550 1350 3080 1350 Output Total 900 940 710 500 Balance 874 415 9686 850 Meds/Results Medications: Active Medications Generic Name Dose Route Start Last Admin Trade Name Freq PRN Reason Stop Dose Admin Acetaminophen 650 mg 08/27/25 03:59 08/28/25 14:38 Acetaminophen 325 Mg Tablet PO 650 mg Q4H PRN Administration Mild Pain (1-3) or Fever Diazepam 5 - 10 mg 08/25/25 10:25 Diazepam Inj (*Crx) 10 Mg/2 Ml Syringe IV PUSH Q5M PRN CIWA > 15 Diazepam 10 mg 08/25/25 12:00 08/28/25 20:33 Diazepam Inj (*Crx) 10 Mg/2 Ml Syringe IV PUSH 08/29/25 11:59 10 mg HS CAROLYN Administration Taper Folic Acid 1 mg 08/26/25 09:00 08/29/25 09:29 Folic Acid 1 Mg/0.2 Ml Inj IV PUSH 1 mg DAILY CAROLYN Administration Hydralazine HCl 10 mg 08/28/25 16:48 Hydralazine Hcl 20 Mg/Ml Vial IV PUSH Q8H PRN Blood Pressure - High Hydromorphone HCl 0.5 mg 08/25/25 07:53 08/29/25 06:32 Hydromorphone Hcl Inj (*Crx) 1 Mg/Ml Syr IV PUSH 0.5 mg Q4H PRN Administration Pain Rated 7-10 Ceftriaxone Sodium 1 gm/ 50 mls @ 100 mls/hr 08/26/25 09:00 08/29/25 09:27 Sodium Chloride IVPB 100 mls/hr Q24H CAROLYN Administration Metronidazole 500 mg in 100 mls @ 100 mls/hr 08/25/25 18:00 08/29/25 02:41 Flagyl 500 Mg/Iso Soln 100 Ml IVPB Infused Q8H CAROLYN Infusion Sodium Chloride 1,000 mls @ 75 mls/hr 08/25/25 16:15 08/29/25 09:31 Normal Saline Iv IV CONT 75 mls/hr .[id number] CAROLYN Administration Ondansetron HCl 4 mg 08/25/25 10:22 Ondansetron Inj 4 Mg/2 Ml Vial IV PUSH Q4HR PRN nausea/vominting Pantoprazole Sodium 40 mg 08/25/25 21:00 08/29/25 09:28 Pantoprazole Sodium Iv 40 Mg Vial IV PUSH 40 mg Q12HR CAROLYN Administration Thiamine HCl 100 mg 08/26/25 09:00 08/29/25 09:28 Thiamine Hcl 200 Mg/2 Ml Vial IV PUSH 100 mg DAILY CAROLYN Administration Radiology Results: ITS Impressions Abdomen/Pelvis CTA 08/25/25 06:38 IMPRESSION: 1. Worrisome for acute cholecystitis. 2. Suspect enterocolitis. 3. Suspect gastritis. 4. No evidence of active bleed. Chest X-Ray 08/25/25 07:06 IMPRESSION: 1. No acute cardiopulmonary findings given portable technique. Upper Quadrant Ultrasound 08/25/25 11:18 IMPRESSION: 1. Consistent with acute cholecystitis. Cholecystostomy 08/27/25 12:50 IMPRESSION: 1. Successful ultrasound-guided cholecystostomy tube placement. 2. 50 mL bile was sent for aerobic, anaerobic, and fungal cultures. 3. The catheter will be managed by Dr. Preston. A catheter cholangiogram may be performed not less than 48 hours after tube placement if clinically indicated to assess cystic duct patency. If cholecystectomy is not eventually performed and the infectious episode has resolved, the tube may be removed over a guidewire, preferably not less than 3 weeks after placement to allow time for a mature catheter tract to form to prevent bile leakage and peritonitis. Labs Labs: Laboratory Results - last 24 hr 08/28/25 08/28/25 08/28/25 12:21 17:06 20:08 WBC RBC Hgb Hct MCV MCH MCHC RDW Plt Count MPV % Immature Plt Fraction Sodium Potassium Chloride Carbon Dioxide Anion Gap BUN Creatinine Estim Creat Clear Calc Estimated GFR Glucose POC Capillary Glucose 85 84 109 H Calcium Magnesium Total Bilirubin AST ALT Alkaline Phosphatase Total Protein Albumin Hepatitis A IgM Ab Hep Bs Antigen Hep B Core IgM Ab Hepatitis C Ab Screen 08/28/25 08/29/25 08/29/25 23:56 01:52 04:00 WBC 4.9 RBC 5.07 Hgb 16.1 Hct 47.6 MCV 93.9 MCH 31.8 MCHC 33.8 RDW 12.1 Plt Count 117 L MPV 9.0 % Immature Plt Fraction 2.1 Sodium 135 L Potassium 3.5 Chloride 105 Carbon Dioxide 27 Anion Gap 3 L BUN 28 H Creatinine 1.24 Estim Creat Clear Calc 56 Estimated GFR 59 Glucose 82 POC Capillary Glucose 72 94 Calcium 8.3 L Magnesium 2.6 H Total Bilirubin 2.6 H AST 66 H ALT 96 H Alkaline Phosphatase 165 H Total Protein 5.9 L Albumin 3.1 L Hepatitis A IgM Ab Negative Hep Bs Antigen Negative Hep B Core IgM Ab Negative Hepatitis C Ab Screen Negative 08/29/25 06:24 WBC RBC Hgb Hct MCV MCH MCHC RDW Plt Count MPV % Immature Plt Fraction Sodium Potassium Chloride Carbon Dioxide Anion Gap BUN Creatinine Estim Creat Clear Calc Estimated GFR Glucose POC Capillary Glucose 75 Calcium Magnesium Total Bilirubin AST ALT Alkaline Phosphatase Total Protein Albumin Hepatitis A IgM Ab Hep Bs Antigen Hep B Core IgM Ab Hepatitis C Ab Screen
--- NOTE | 2025-08-29 16:31 | WPDGIPROGNO ---
Progress Note: A&P Assessment and Plan (1) Acute cholecystitis: Code(s): K81.0 - Acute cholecystitis Status: Acute Assessment and Plan: on antibiotic underwent yesterday cholecystostomy tube as acute treatment after SIRS with fever noted that bili came down and overall much better, surgery team decided to cancel mrcp no objections to discharge with antibiotics and will need follow-up with surgery eventually will need cholecystectomy will follow only as needed (2) SIRS (systemic inflammatory response syndrome): Code(s): R65.10 - Systemic inflammatory response syndrome (SIRS) of non-infectious origin without acute organ dysfunction Status: Acute Assessment and Plan: source GB, had fever and leukocytosis on antibiotics (3) Elevated bilirubin: Code(s): R17 - Unspecified jaundice Status: Acute Assessment and Plan: from cholecystitis trending down again (4) Abdominal pain: Qualifiers: Abdominal location: right upper quadrant Qualified Code(s): R10.11 - Right upper quadrant pain Code(s): R10.9 - Unspecified abdominal pain Status: Acute Assessment and Plan: almost gone (5) Hepatic steatosis: Code(s): K76.0 - Fatty (change of) liver, not elsewhere classified Status: Chronic (6) Alcohol use disorder: Code(s): F10.90 - Alcohol use, unspecified, uncomplicated Status: Chronic Assessment and Plan: thiamine Subjective Date/time seen: 08/29/25 16:31 Interval history: much better, pain almost gone Review of Systems Review of Systems: All systems reviewed & are unremarkable except as noted in HPI and below Exam Const: General: comfortable HENMT: Face/Nose/Sinus: Normal nares present Eyes: General: appearance normal, both eyes and all related structures Neck: Neck: supple Resp: Effort & Inspection: normal respiratory effort Cardio: Rate: regular rate GI: Inspection: non-distended Auscultation: normal bowel sounds Rectal Exam: deferred Other: Right lateral percutaneous cholecystostomy tube with blood tinged light-colored yellow/green bile. Bloody output likely just from trauma to the area. Skin: Wounds: no wounds Neuro: Speech: normal speech Motor exam (neuro): 5/5 motor strength present throughout Extrem: General: normal to inspection Psych: Mental Status: mental status grossly normal Objective Data Vital Signs Vital Signs: Vital Signs - 24 hr 08/28/25 18:00 08/28/25 20:00 08/28/25 20:00 Temperature 97.8 F Pulse Rate 103 H 84 Pulse Rate [Right Radial Palpation] 81 Respiratory Rate 16 Blood Pressure 119/75 Pulse Oximetry 96 Oxygen Delivery Oxygen Flow Rate 08/28/25 20:00 08/28/25 20:00 08/28/25 22:00 Temperature Pulse Rate 84 93 80 Pulse Rate [Right Radial Palpation] Respiratory Rate 16 Blood Pressure Pulse Oximetry 96 Oxygen Delivery Room Air Oxygen Flow Rate 08/29/25 00:00 08/29/25 00:00 08/29/25 00:00 Temperature 98.2 F Pulse Rate 76 81 Pulse Rate [Right Radial Palpation] 81 Respiratory Rate 18 Blood Pressure 147/90 H 147/90 H Pulse Oximetry 96 Oxygen Delivery Oxygen Flow Rate 08/29/25 00:00 08/29/25 02:00 08/29/25 04:00 Temperature 98.1 F Pulse Rate 76 79 83 Pulse Rate [Right Radial Palpation] Respiratory Rate 18 20 Blood Pressure 152/99 H Pulse Oximetry 96 97 Oxygen Delivery Nasal Cannula Oxygen Flow Rate 3 08/29/25 04:00 08/29/25 04:00 08/29/25 04:00 Temperature Pulse Rate 78 Pulse Rate [Right Radial Palpation] 74 Respiratory Rate Blood Pressure Pulse Oximetry 98 Oxygen Delivery Nasal Cannula Oxygen Flow Rate 3 08/29/25 06:00 08/29/25 07:52 08/29/25 08:00 Temperature 98 F Pulse Rate 76 93 Pulse Rate [Right Radial Palpation] Respiratory Rate 20 Blood Pressure 154/93 H Pulse Oximetry 94 96 Oxygen Delivery Room Air Oxygen Flow Rate 08/29/25 08:00 08/29/25 10:00 08/29/25 12:00 Temperature 97.6 F Pulse Rate 88 106 H 96 Pulse Rate [Right Radial Palpation] Respiratory Rate 16 Blood Pressure 158/85 H Pulse Oximetry 100 Oxygen Delivery Oxygen Flow Rate 08/29/25 12:00 08/29/25 14:00 08/29/25 16:00 Temperature 98.2 F Pulse Rate 100 79 74 Pulse Rate [Right Radial Palpation] Respiratory Rate 18 Blood Pressure 141/84 H Pulse Oximetry 97 Oxygen Delivery Oxygen Flow Rate Intake/Output Intake/Output: Intake & Output 08/26/25 08/27/25 08/28/25 08/29/25 23:59 23:59 23:59 23:59 Intake Total 1550 1350 3080 1710 Output Total 900 940 710 575 Balance 368 874 0170 1135 Meds/Results Medications: Active Medications Generic Name Dose Route Start Last Admin Trade Name Freq PRN Reason Stop Dose Admin Acetaminophen 650 mg 08/27/25 03:59 08/28/25 14:38 Acetaminophen 325 Mg Tablet PO 650 mg Q4H PRN Administration Mild Pain (1-3) or Fever Diazepam 5 - 10 mg 08/25/25 10:25 Diazepam Inj (*Crx) 10 Mg/2 Ml Syringe IV PUSH Q5M PRN CIWA > 15 Folic Acid 1 mg 08/26/25 09:00 08/29/25 09:29 Folic Acid 1 Mg/0.2 Ml Inj IV PUSH 1 mg DAILY CAROLYN Administration Hydralazine HCl 10 mg 08/28/25 16:48 Hydralazine Hcl 20 Mg/Ml Vial IV PUSH Q8H PRN Blood Pressure - High Hydromorphone HCl 0.5 mg 08/25/25 07:53 08/29/25 06:32 Hydromorphone Hcl Inj (*Crx) 1 Mg/Ml Syr IV PUSH 0.5 mg Q4H PRN Administration Pain Rated 7-10 Ceftriaxone Sodium 1 gm/ 50 mls @ 100 mls/hr 08/26/25 09:00 08/29/25 09:27 Sodium Chloride IVPB 100 mls/hr Q24H CAROLYN Administration Metronidazole 500 mg in 100 mls @ 100 mls/hr 08/25/25 18:00 08/29/25 11:51 Flagyl 500 Mg/Iso Soln 100 Ml IVPB 100 mls/hr Q8H CAROLYN Administration Sodium Chloride 1,000 mls @ 75 mls/hr 08/25/25 16:15 08/29/25 09:31 Normal Saline Iv IV CONT 75 mls/hr .[id number] CAROLYN Administration Ondansetron HCl 4 mg 08/25/25 10:22 Ondansetron Inj 4 Mg/2 Ml Vial IV PUSH Q4HR PRN nausea/vominting Pantoprazole Sodium 40 mg 08/25/25 21:00 08/29/25 09:28 Pantoprazole Sodium Iv 40 Mg Vial IV PUSH 40 mg Q12HR CAROLYN Administration Thiamine HCl 100 mg 08/26/25 09:00 08/29/25 09:28 Thiamine Hcl 200 Mg/2 Ml Vial IV PUSH 100 mg DAILY CAROLYN Administration Radiology Results: ITS Impressions Abdomen/Pelvis CTA 08/25/25 06:38 IMPRESSION: 1. Worrisome for acute cholecystitis. 2. Suspect enterocolitis. 3. Suspect gastritis. 4. No evidence of active bleed. Chest X-Ray 08/25/25 07:06 IMPRESSION: 1. No acute cardiopulmonary findings given portable technique. Upper Quadrant Ultrasound 08/25/25 11:18 IMPRESSION: 1. Consistent with acute cholecystitis. Cholecystostomy 08/27/25 12:50 IMPRESSION: 1. Successful ultrasound-guided cholecystostomy tube placement. 2. 50 mL bile was sent for aerobic, anaerobic, and fungal cultures. 3. The catheter will be managed by Dr. Preston. A catheter cholangiogram may be performed not less than 48 hours after tube placement if clinically indicated to assess cystic duct patency. If cholecystectomy is not eventually performed and the infectious episode has resolved, the tube may be removed over a guidewire, preferably not less than 3 weeks after placement to allow time for a mature catheter tract to form to prevent bile leakage and peritonitis. Labs Labs: Laboratory Results - last 24 hr 08/28/25 08/28/25 08/28/25 17:06 20:08 23:56 WBC RBC Hgb Hct MCV MCH MCHC RDW Plt Count MPV % Immature Plt Fraction Sodium Potassium Chloride Carbon Dioxide Anion Gap BUN Creatinine Estim Creat Clear Calc Estimated GFR Glucose POC Capillary Glucose 84 109 H 72 Calcium Magnesium Total Bilirubin AST ALT Alkaline Phosphatase Total Protein Albumin Hepatitis A IgM Ab Hep Bs Antigen Hep B Core IgM Ab Hepatitis C Ab Screen 08/29/25 08/29/25 08/29/25 01:52 04:00 06:24 WBC 4.9 RBC 5.07 Hgb 16.1 Hct 47.6 MCV 93.9 MCH 31.8 MCHC 33.8 RDW 12.1 Plt Count 117 L MPV 9.0 % Immature Plt Fraction 2.1 Sodium 135 L Potassium 3.5 Chloride 105 Carbon Dioxide 27 Anion Gap 3 L BUN 28 H Creatinine 1.24 Estim Creat Clear Calc 56 Estimated GFR 59 Glucose 82 POC Capillary Glucose 94 75 Calcium 8.3 L Magnesium 2.6 H Total Bilirubin 2.6 H AST 66 H ALT 96 H Alkaline Phosphatase 165 H Total Protein 5.9 L Albumin 3.1 L Hepatitis A IgM Ab Negative Hep Bs Antigen Negative Hep B Core IgM Ab Negative Hepatitis C Ab Screen Negative 08/29/25 12:01 WBC RBC Hgb Hct MCV MCH MCHC RDW Plt Count MPV % Immature Plt Fraction Sodium Potassium Chloride Carbon Dioxide Anion Gap BUN Creatinine Estim Creat Clear Calc Estimated GFR Glucose POC Capillary Glucose 136 H Calcium Magnesium Total Bilirubin AST ALT Alkaline Phosphatase Total Protein Albumin Hepatitis A IgM Ab Hep Bs Antigen Hep B Core IgM Ab Hepatitis C Ab Screen
[2025-08-29] MEDS: oxyCODONE HCL (*CRX) 5 MG TAB IR 10 MG PO ×2 (18:11→22:57)
--- NOTE | 2025-08-29 22:52 | PC.NURSE ---
This patient, Cristhian Marin Jr., was transferred to [325-2 ] on 08/29/25 at 2252. Personal belongings sent with patient. Report given to [ ]. Appropriate documentation sent with patient.
--- NOTE | 2025-08-29 22:59 | PC.NURSE ---
This patient, Cristhian Marin Jr., was transferred to [[facility]2 ] on 08/29/25 at 2240. Personal belongings sent with patient. Report given to [Edelmira VALLADARES ]. Appropriate documentation sent with patient.
[2025-08-30] VITALS (7 sets, daily range): BP systolic 115–139; BP diastolic 78–92; PULSE 69–86; RESP 14–20; TEMP 36.2–36.9; O2SAT 94–100
[2025-08-30] MEDS: metroNIDAZOLE 500 MG/ISO 100ML 500 MG/100 ML BAG 100 MG IVPB ×3 (01:34→17:12)
[2025-08-30] MEDS: oxyCODONE HCL (*CRX) 5 MG TAB IR 10 MG PO ×2 (06:05→21:00)
[2025-08-30 07:58] LABS: Hematocrit 44.5 % (42.0-52.0); Hemoglobin 15.2 g/dL (14.0-18.0); Immature Platelet Fraction Pct 2.2 % (0.9-11.2); Mean Corpuscular HGB Conc 34.2 g/dl (32-36); Mean Corpuscular Hemoglobin 31.7 pg (26-34); Mean Corpuscular Volume 92.9 fl (80-100); Platelet Count Result 112 k/mm3 (150-375); Red Blood Count 4.79 M/mm3 (4.6-6.20); White Blood Count 4.1 K/mm3 (4.5-10.0)
[2025-08-30] MEDS: ACETAMINOPHEN 325 MG TABLET 650 MG PO ×3 (08:11→17:12)
[2025-08-30] MEDS: THIAMINE HCL 200 MG/2 ML VIAL 100 MG IV PUSH (08:11)
[2025-08-30] MEDS: PANTOPRAZOLE SODIUM IV 40 MG VIAL IV PUSH ×2 (08:12→21:00)
[2025-08-30] MEDS: cefTRIAXone 1 GM in SODIUM CHLORIDE 0.9% IV 50 ML 100 ML IVPB (08:12)
[2025-08-30] MEDS: FOLIC ACID 1 MG/0.2 ML INJ IV PUSH (08:15)
[2025-08-30 08:28] LABS: Alanine Aminotransferase 56 U/L (6-50); Albumin Level 2.8 g/dL (3.5-5.1); Alkaline Phosphatase 126 U/L (38-126); Anion Gap 3 mmol/L (4-12); Aspartate Amino Transferase 34 U/L (17-59); Bilirubin,Total 1.5 mg/dL (0.2-1.3); Blood Urea Nitrogen 16 mg/dL (9-20); Calcium 8.1 mg/dL (8.4-10.2); Carbon Dioxide 23 mmol/L (22-30); Chloride 104 mmol/L (98-107); Estimated CRCL calculation 67 ml/min; Estimated Glomerular Filt Rate > 60; Glucose 110 mg/dL (65-110); Magnesium 2.3 mg/dL (1.6-2.3); NT Pro B Type Natriuretic Pept 258 pg/mL (19.9-100); Potassium 3.4 mmol/L (3.4-5.0); Sodium 130 mmol/L (137-145); Total Protein 5.5 g/dL (6.3-8.2)
--- NOTE | 2025-08-30 10:01 | P.PNIM_ITS ---
Assessment and Plan Assessment and Plan (1) Acute cholecystitis: Code(s): K81.0 - Acute cholecystitis Status: Acute Assessment and Plan: Initial workup suggestive of acute cholecystitis, Elevated bilirubin, dilated biliary system on imaging, concern for choledocholithiasis, Report quadrant ultrasound shows acute cholecystitis. Surgery and GI consulted. Started on IV fluids. Was NPO, now diet advanced. LFT's continue to improve 08/27 Cholecystomy placed by IR Started on empiric Ceftriaxone and Flagyl 08/26-present GI consulted during admission and now ok for discharge * Monitor off fluids * diet advanced to low fat today * Pain control: Schedule acetaminophen 650mg TID, Oxycodone 10mg q4 prn, IV Dilaudid 0.5mg q4 prn * Bowel regimen: Miralax BID, Senna hs, bisacodyl daily if no bm * Follow final blood cultures 08/25-present * Continue ceftriaxone, Flagyl 08/26-present. Will need a total of 10 days of antibiotics per surgery recommendations 08/29. Likely discharge with Augmentin. * Zofran p.r.n. * IV PPI * Per IR note 08/27: The catheter will be managed by Dr. Preston. A catheter cholangiogram may be performed not less than 48 hours after tube placement if clinically indicated to assess cystic duct patency. If cholecystectomy is not eventually performed and the infectious episode has resolved, the tube may be removed over a guidewire, preferably not less than 3 weeks after placement to allow time for a mature catheter tract to form to prevent bile leakage and peritonitis. --Follow up with surgery as noted (2) Alcohol use disorder: Code(s): F10.90 - Alcohol use, unspecified, uncomplicated Status: Chronic Assessment and Plan: Patient with HX of ETOH abuse last drink was reported on Monday night 3 days ago. Denies ever having withdrawal symptoms in the past * Thiamine, folic acid, and multi-vitamin. Changed to PO * PPI daily * Diazepam * Ativan PRN for seizure activity * CIWA daily * Monitor and replenish electrolytes as needed * Seizure precautions if indicated (3) Hypertension: Qualifiers: Hypertension type: primary hypertension Qualified Code(s): I10 - Essential (primary) hypertension Code(s): I10 - Essential (primary) hypertension Status: Chronic Assessment and Plan: patient with history of hypertension takes losartan at home however currently NPO is hypertensive * DC hydralazine * monitor BP per unit protocol * Consider restarting a low dose of losartan if trending up (4) Thrombocytopenia: Code(s): D69.6 - Thrombocytopenia, unspecified Status: Acute Assessment and Plan: likely secondary to current infection and alcohol abuse * trend platelets * no evidence of active bleed (5) Elevated bilirubin: Code(s): R17 - Unspecified jaundice Status: Acute Assessment and Plan: LFT's improving * GI & surgery consulted, appreciate recommendations * Treatment of acute cholecystitis as noted (6) Hepatic steatosis: Code(s): K76.0 - Fatty (change of) liver, not elsewhere classified Status: Chronic Assessment and Plan: * lipid panel normal * Check HgbA1c (7) Enterocolitis: Code(s): K52.9 - Noninfective gastroenteritis and colitis, unspecified Status: Acute Assessment and Plan: CT abdomen suggestive colitis * IV Rocephin and Flagyl (8) Elevated blood sugar: Code(s): R73.9 - Hyperglycemia, unspecified Status: Acute Assessment and Plan: Blood sugar ranging 72-154 --Check hgbA1c --May need to monitor blood sugars at home or consider metformin (9) Weakness: Code(s): R53.1 - Weakness Status: Acute Assessment and Plan: Unsteady gait --PT/OT eval pending for discharge, may need short term rehab. Not yet safe for home --UP to chair TID --Up with assistance as tolerated Plan Patient with abdominal pain was seen by the surgery service patient is not a candidate for surgery and recommended percutaneous cholecystostomy tube placement and which tolerated, stats feeling better and abdominal pain is better but still requiring IV dilaudid 50cc of bilious fluid sent for culture. MRCP cancelled by surgery and cholecystomy tube placed. LFT's improving s/p cholecystostomy tube placement 08/27 1. Successful ultrasound-guided cholecystostomy tube placement. 2. 50 mL bile was sent for aerobic, anaerobic, and fungal cultures. 3. The catheter will be managed by Dr. Preston. A catheter cholangiogram may be performed not less than 48 hours after tube placement if clinically indicated to assess cystic duct patency. If cholecystectomy is not eventually performed and the infectious episode has resolved, the tube may be removed over a guidewire, preferably not less than 3 weeks after placement to allow time for a mature ca theter tract to form to prevent bile leakage and peritonitis. PT/OT notes: NA Disposition: Patient continues admission for further evaluation of cholecystitis with consult to General surgery s/p cholesystomy tube placement. No evidence of alcohol withdrawal, monitored since hx alcohol abuse Code status: Full code per patient DVT prophylaxis: SCD's Stress ulcer prophylaxis: Protonix 40 daily Time Spent With Patient Time with patient: Greater than 35 minutes Subjective Date/time seen: 08/30/25 10:01 Interval history: Bilirubin down from 9.3>2.6>1.5 today. Drinking well. Creatinine normalized. Stopped fluids yesterday Tolerating a diet WBC 11.9>6.7>4.9>4.1 VSS 3L O2 weaned off, has been using it with sleep but otherwise has been off. Not using overnight Didn't need Dilaudid overnight. Still needing oxycodone, will need a script. Reports he had a BM yesterday. CXR cardiomegaly, clear lungs 08/25. No prior echo. Reports weakness, unsteadiness. PT/OT ordered, considering rehab. Family worried about him being at home. DC pending therapy recs Review of Systems Review of Systems: All systems reviewed & are unremarkable except as noted in HPI and below Exam Narrative: General - Awake and alert. No acute distress Eyes - PERRLA, EOM intact ENT - No thrush, No erythema Neck - No noticeable or palpable swelling Lymph Nodes - No lymphadenopathy Cardiovascular - RRR no m/r/g, no JVD Lungs: Decreased all lobes, no wheezes, rare end expiratory crackles Skin - Skin warm and dry, no wounds or rashes Abdomen - Normal bowel sounds, abdomen soft, mild TTP right side. Drain with serosanguinous drainage Extremities - No edema, cyanosis or clubbing Musculoskeletal - 5/5 strength, normal range of motion, no swollen or erythematous joints. Neurological ? Alert and oriented x 3, CN 2-12 grossly intact. Psych: Normal mood and affect Objective Data Vital Signs Vital Signs: Vital Signs - 24 hr 08/29/25 12:00 08/29/25 12:00 08/29/25 14:00 Temperature 97.6 F Pulse Rate 96 100 79 Pulse Rate [Right Radial Palpation] Respiratory Rate 16 Blood Pressure 158/85 H Pulse Oximetry 100 08/29/25 16:00 08/29/25 16:00 08/29/25 17:40 Temperature 98.2 F Pulse Rate 74 80 93 Pulse Rate [Right Radial Palpation] Respiratory Rate 18 Blood Pressure 141/84 H Pulse Oximetry 97 08/29/25 19:42 08/29/25 20:00 08/29/25 20:00 Temperature 97.5 F L Pulse Rate 77 72 Pulse Rate [Right Radial Palpation] 82 Respiratory Rate 24 H Blood Pressure 133/77 Pulse Oximetry 97 08/30/25 00:00 08/30/25 04:00 08/30/25 08:00 Temperature 98.2 F 98.4 F 97.5 F L Pulse Rate 78 80 86 Pulse Rate [Right Radial Palpation] Respiratory Rate 20 20 18 Blood Pressure 139/90 115/92 H 126/92 H Pulse Oximetry 97 97 100 Intake/Output Intake/Output: Intake & Output 08/27/25 08/28/25 08/29/25 08/30/25 23:59 23:59 23:59 23:59 Intake Total 1350 3080 2200 799 Output Total 373 344 3951 350 Balance 410 2370 865 449 Meds/Results Medications: Active Medications Generic Name Dose Route Start Last Admin Trade Name Freq PRN Reason Stop Dose Admin Acetaminophen 650 mg 08/30/25 09:00 08/30/25 08:11 Acetaminophen 325 Mg Tablet PO 650 mg TID CAROLYN Administration Diazepam 5 - 10 mg 08/25/25 10:25 Diazepam Inj (*Crx) 10 Mg/2 Ml Syringe IV PUSH Q5M PRN CIWA > 15 Folic Acid 1 mg 08/26/25 09:00 08/30/25 08:15 Folic Acid 1 Mg/0.2 Ml Inj IV PUSH 1 mg DAILY CAROLYN Administration Hydralazine HCl 10 mg 08/28/25 16:48 Hydralazine Hcl 20 Mg/Ml Vial IV PUSH Q8H PRN Blood Pressure - High Hydromorphone HCl 0.5 mg 08/25/25 07:53 08/29/25 06:32 Hydromorphone Hcl Inj (*Crx) 1 Mg/Ml Syr IV PUSH 0.5 mg Q4H PRN Administration 2nd line for pain Ceftriaxone Sodium 1 gm/ 50 mls @ 100 mls/hr 08/26/25 09:00 08/30/25 08:12 Sodium Chloride IVPB 100 mls/hr Q24H CAROLYN Administration Metronidazole 500 mg in 100 mls @ 100 mls/hr 08/25/25 18:00 08/30/25 09:45 Flagyl 500 Mg/Iso Soln 100 Ml IVPB 100 mls/hr Q8H CAROLYN Administration Ondansetron HCl 4 mg 08/25/25 10:22 Ondansetron Inj 4 Mg/2 Ml Vial IV PUSH Q4HR PRN nausea/vominting Oxycodone HCl 10 mg 08/29/25 17:49 08/30/25 06:05 Oxycodone Hcl (*Crx) 5 Mg Tab Ir PO 10 mg Q4H PRN Administration first line for pain Pantoprazole Sodium 40 mg 08/25/25 21:00 08/30/25 08:12 Pantoprazole Sodium Iv 40 Mg Vial IV PUSH 40 mg Q12HR CAROLYN Administration Thiamine HCl 100 mg 08/26/25 09:00 08/30/25 08:11 Thiamine Hcl 200 Mg/2 Ml Vial IV PUSH 100 mg DAILY CAROLYN Administration Radiology Results: ITS Impressions Abdomen/Pelvis CTA 08/25/25 06:38 IMPRESSION: 1. Worrisome for acute cholecystitis. 2. Suspect enterocolitis. 3. Suspect gastritis. 4. No evidence of active bleed. Chest X-Ray 08/25/25 07:06 IMPRESSION: 1. No acute cardiopulmonary findings given portable technique. Upper Quadrant Ultrasound 08/25/25 11:18 IMPRESSION: 1. Consistent with acute cholecystitis. Cholecystostomy 08/27/25 12:50 IMPRESSION: 1. Successful ultrasound-guided cholecystostomy tube placement. 2. 50 mL bile was sent for aerobic, anaerobic, and fungal cultures. 3. The catheter will be managed by Dr. Preston. A catheter cholangiogram may be performed not less than 48 hours after tube placement if clinically indicated to assess cystic duct patency. If cholecystectomy is not eventually performed and the infectious episode has resolved, the tube may be removed over a guidewire, preferably not less than 3 weeks after placement to allow time for a mature catheter tract to form to prevent bile leakage and peritonitis. Labs Labs: Laboratory Results - last 24 hr 08/29/25 08/29/25 08/29/25 12:01 17:43 23:56 WBC RBC Hgb Hct MCV MCH MCHC RDW Plt Count MPV % Immature Plt Fraction Sodium Potassium Chloride Carbon Dioxide Anion Gap BUN Creatinine Estim Creat Clear Calc Estimated GFR Glucose POC Capillary Glucose 136 H 115 H 154 H Calcium Magnesium Total Bilirubin AST ALT Alkaline Phosphatase NT-Pro-B Natriuret Pep Total Protein Albumin 08/30/25 08/30/25 06:25 07:48 WBC 4.1 L RBC 4.79 Hgb 15.2 Hct 44.5 MCV 92.9 MCH 31.7 MCHC 34.2 RDW 12.0 Plt Count 112 L MPV 9.1 % Immature Plt Fraction 2.2 Sodium 130 L Potassium 3.4 Chloride 104 Carbon Dioxide 23 Anion Gap 3 L BUN 16 D Creatinine 1.01 Estim Creat Clear Calc 67 Estimated GFR > 60 Glucose 110 POC Capillary Glucose 91 Calcium 8.1 L Magnesium 2.3 Total Bilirubin 1.5 H AST 34 ALT 56 H Alkaline Phosphatase 126 NT-Pro-B Natriuret Pep 258 H Total Protein 5.5 L Albumin 2.8 L Quality VTE Prophylaxis VTE prophylaxis: mechanical ordered Hospitalist MIPS Advance Care Plan I have confirmed that the patient's Advanced Care Plan is present, code status is documented, or surrogate decision maker is listed in patient medical record.: Yes Medication Reconciliation The patient is not eligible for med reconciliation; the patient is in a emergent medical situation where delaying treatment would jeopardize the patients health.: Yes
[2025-08-30] MEDS: SENNOSIDES 8.6 MG TABLET PO (21:00)
[2025-08-31] MEDS: metroNIDAZOLE 500 MG/ISO 100ML 500 MG/100 ML BAG 100 MG IVPB (03:11)
[2025-08-31] MEDS: oxyCODONE HCL (*CRX) 5 MG TAB IR 10 MG PO (03:19)
[2025-08-31 04:00] VITALS: BP 134/87; PULSE 90; RESP 18; TEMP 36.9; O2SAT 93
[2025-08-31 04:57] LABS: Hemoglobin A1C 4.8 % (<5.7)
[2025-08-31 06:55] LABS: Hematocrit 45.4 % (42.0-52.0); Hemoglobin 15.4 g/dL (14.0-18.0); Immature Platelet Fraction Pct 2.0 % (0.9-11.2); Mean Corpuscular HGB Conc 33.9 g/dl (32-36); Mean Corpuscular Hemoglobin 31.8 pg (26-34); Mean Corpuscular Volume 93.8 fl (80-100); Platelet Count Result 123 k/mm3 (150-375); Red Blood Count 4.84 M/mm3 (4.6-6.20); White Blood Count 3.8 K/mm3 (4.5-10.0)
[2025-08-31 07:15] LABS: Alanine Aminotransferase 47 U/L (6-50); Albumin Level 2.8 g/dL (3.5-5.1); Alkaline Phosphatase 118 U/L (38-126); Anion Gap 2 mmol/L (4-12); Aspartate Amino Transferase 37 U/L (17-59); Bilirubin,Total 1.2 mg/dL (0.2-1.3); Blood Urea Nitrogen 9 mg/dL (9-20); Calcium 8.2 mg/dL (8.4-10.2); Carbon Dioxide 25 mmol/L (22-30); Chloride 104 mmol/L (98-107); Estimated CRCL calculation 78 ml/min; Estimated Glomerular Filt Rate > 60; Glucose 110 mg/dL (65-110); Magnesium 2.4 mg/dL (1.6-2.3); Potassium 3.6 mmol/L (3.4-5.0); Sodium 131 mmol/L (137-145); Total Protein 5.5 g/dL (6.3-8.2)
[2025-08-31 08:00] VITALS: BP 150/80; PULSE 87; RESP 18; TEMP 36.7; O2SAT 99
[2025-08-31] MEDS: FOLIC ACID 1 MG TABLET PO (09:19)
[2025-08-31] MEDS: ACETAMINOPHEN 325 MG TABLET 650 MG PO (09:19)
[2025-08-31] MEDS: THERAPEUTIC MULTIVITAMINS/MINERALS TAB (*BKC) 1 TABLET PO (09:19)
[2025-08-31] MEDS: THIAMINE HCL 100 MG TABLET PO (09:19)
[2025-08-31 09:30] VITALS: BP 150/80; PULSE 82
--- NOTE | 2025-08-31 10:57 | P.DS_ITS ---
DS: Admitting Diagnosis Discharge Date 08/31/2025 Admitting Diagnosis Abdominal pain DS: Discharge Diagnosis Discharge Diagnosis (1) Acute cholecystitis: Code(s): K81.0 - Acute cholecystitis Status: Acute DS: Summary Hospital Course Hospital Course: Discharge Diagnoses: * Acute cholecystitis, s/p percutaneous cholecystostomy (K81.0) * Alcohol use disorder (F10.90) * Hypertension (I10) * Thrombocytopenia, likely secondary to infection and liver disease (D69.6) * Elevated bilirubin, resolved (R17) * Hepatic steatosis (K76.0) * Enterocolitis, resolved (K52.9) * Weakness, improved (R53.1) * History of bowel resection (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 He reported drinking approximately 12 beers daily. Initial imaging (CT and RUQ ultrasound) was consistent with acute cholecystitis, with concern for choledocholithiasis and enterocolitis. Labs were notable for hyperbilirubinemia (total bili 4.3 mg/dL), mild thrombocytopenia, and mild transaminitis. He was hypertensive on admission and had a history of chronic hyperbilirubinemia. Hospital Course: * Acute Cholecystitis: * Managed initially with IV fluids, NPO, and empiric antibiotics (ceftriaxone and metronidazole). * General surgery and GI were consulted. * Due to worsening pain, fever, leukocytosis, and not being a surgical candidate, he underwent successful ultrasound-guided percutaneous cholecystostomy tube placement on 08/27/25. * Post-procedure, his abdominal pain and tenderness improved significantly. * Biliary drainage was monitored; cultures were sent. * LFTs and bilirubin initially increased (peak bili 9.3), then trended down to 2.6 and finally 1.5 prior to discharge. * MRCP was canceled as clinical and laboratory improvement was observed. * He was transitioned to a low-fat diet, tolerated oral intake, and was weaned off IV fluids and oxygen. * Will require a total of 10 days of antibiotics (discharged on oral amoxicillin/clavulanate per surgery recommendations). * Will need follow-up for possible interval cholecystectomy. * Alcohol Use Disorder: * Last drink was 3 days prior to admission. * No evidence of withdrawal during hospitalization. * Received thiamine, folic acid, and multivitamin supplementation. * Strongly counseled on alcohol cessation. * Hypertension: * Home losartan was held while NPO; blood pressure managed with IV hydralazine as needed. * Blood pressure improved; plan to resume home antihypertensive as outpatient if needed. * Thrombocytopenia: * Platelets trended down to 117,000, likely secondary to infection and liver disease. * No evidence of active bleeding. * Elevated Bilirubin: * Initially attributed to cholecystitis and possible chronic liver disease. * Bilirubin and LFTs improved with source control and antibiotics. * Enterocolitis: * Suspected on initial CT, resolved with supportive care and antibiotics. * Weakness/Unsteady Gait: * PT/OT evaluation performed; patient improved but may require short-term rehab depending on discharge planning and family support. * Other: * SIRS resolved with source control and antibiotics. * Hyperglycemia was mild and resolved; HgbA1c checked. Procedures * 08/27/25:?Ultrasound-guided percutaneous cholecystostomy tube placement by IR. * 50 mL bile sent for culture. * Tube to remain in place for at least 3 weeks; follow-up with surgery for possible removal or interval cholecystectomy. Discharge Condition * Afebrile, hemodynamically stable, tolerating oral diet, ambulating with assistance, no acute distress. * Abdominal pain minimal, cholecystostomy tube in place with appropriate drainage. * No evidence of ongoing infection or withdrawal. * Labs improved: WBC normalized, bilirubin and LFTs trending down, creatinine normalized. Discharge Medications * Amoxicillin/clavulanate (Augmentin)?[dose per pharmacy] PO BID to complete 10- day course (including days in hospital) * Acetaminophen 650 mg PO TID PRN?(pain/fever) * Oxycodone 5-10 mg PO q4h PRN?(pain) * Ondansetron 4 mg PO q4h PRN?(nausea) * Pantoprazole 40 mg PO daily?(GI prophylaxis) * Thiamine 100 mg PO daily * Folic acid 1 mg PO daily * Multivitamin PO daily * Losartan 100 mg PO daily?(resume if BP elevated) * Bowel regimen:?Polyethylene glycol (Miralax) BID, senna at bedtime, bisacodyl daily PRN for constipation Continue home medications as appropriate. Adjust antihypertensive regimen based on outpatient BP monitoring. Discharge Instructions * Cholecystostomy Tube Care: * Keep tube site clean and dry. * Monitor for signs of infection (redness, swelling, pus, fever). * Empty drainage bag as instructed. * Do not manipulate or remove tube. * Follow up with surgery in 2-3 weeks for tube management and discussion of interval cholecystectomy. * Diet: * Low-fat diet until definitive cholecystectomy or tube removal. * Activity: * Ambulate with assistance as needed. * Continue PT/OT exercises as instructed. * Alcohol: * Strict abstinence from alcohol. * Continue vitamin supplementation. * Follow-up: * General surgery clinic in 2-3 weeks. * Primary care within 1-2 weeks. * GI follow-up as needed. * PT/OT as recommended. * When to Seek Medical Attention: * Fever, chills, worsening abdominal pain, jaundice, chest pain, shortness of breath, confusion, bleeding, or any drainage tube issues. Summary Mr. Marin was admitted for acute cholecystitis with sepsis, managed non- operatively with percutaneous cholecystostomy due to surgical risk. He improved clinically and biochemically, and is being discharged in stable condition with a cholecystostomy tube in place, oral antibiotics, and close surgical follow-up. He was monitored for alcohol withdrawal and did not develop symptoms. He is safe for discharge with support and clear instructions. Time Spent with Patient Time attestation: Total time spent providing and/or coordinating discharge services: DS: Data Data Completed and Pending Labs on day of discharge: Labs from last 24 hours 08/31/25 08/31/25 08/31/25 06:41 05:17 00:03 WBC 3.8 L RBC 4.84 Hgb 15.4 Hct 45.4 MCV 93.8 MCH 31.8 MCHC 33.9 RDW 11.9 Plt Count 123 L MPV 8.6 % Immature Plt Fraction 2.0 Sodium 131 L Potassium 3.6 Chloride 104 Carbon Dioxide 25 Anion Gap 2 L BUN 9 D Creatinine 0.87 Estim Creat Clear Calc 78 Estimated GFR > 60 Glucose 110 POC Capillary Glucose 113 H 96 Hemoglobin A1c Calcium 8.2 L Magnesium 2.4 H Total Bilirubin 1.2 AST 37 ALT 47 Alkaline Phosphatase 118 Total Protein 5.5 L Albumin 2.8 L 08/30/25 08/30/25 08/30/25 19:09 12:26 07:45 WBC RBC Hgb Hct MCV MCH MCHC RDW Plt Count MPV % Immature Plt Fraction Sodium Potassium Chloride Carbon Dioxide Anion Gap BUN Creatinine Estim Creat Clear Calc Estimated GFR Glucose POC Capillary Glucose 121 H 115 H Hemoglobin A1c 4.8 Calcium Magnesium Total Bilirubin AST ALT Alkaline Phosphatase Total Protein Albumin Preliminary micro results at discharge 08/27/25 12:41 Fungal Culture - Preliminary Gallbladder Fluid 08/25/25 06:57 Blood Culture - Preliminary Blood 08/25/25 06:35 Blood Culture - Preliminary Blood Discharge Plan Discharge Attending physician on discharge: Tiffanie Almaguer Consulting providers: Jose Watson; Angela Baker; Maria C Blake; Clair Preston Discharging Clinician: Tiffanie Almaguer Anticipated Discharge Date/Time: 08/31/25 10:51 Patient Disposition: Home Activity: as tolerated Diet: as tolerated and diabetic Discharge Instructions: No showering while drain is in place. Sponge bathing is fine. Keep the area clean and dry and change the gauze bandage daily or when saturated. If you notice a complete stop in drain output or deven bright red blood in the bag call the general surgery office. Call the general surgery office at [phone] to schedule a follow-up appointment for [address] Pretson. Antibiotics have been sent to your pharmacy. Please pick these up and take as prescribed. Please obtain lab work 1-2 days prior to your appointment with Dr. Preston. Patient Instructions: Antibiotic Form, Cholecystitis (GEN), Low Fat Diet (GEN) Patient Language: Estonian Stand Alone Forms: General Discharge Information Follow-up/Referrals: Clair Preston MD [Physician, General Surgery] - Call for Appointment Referral Note: 2 weeks. PHYSICIAN,[employer]EVEDORING SUPERINTENDENT [Primary Care Provider, Internal Medicine] Referral Note: F/u with PCP in 3- 5 days Brenton Perez MD [Physician, Gastroenterology] Referral Note: F/u with GI as instructed Discharge Medications: New amoxicillin-pot clavulanate 875-125 mg tablet 1 tablet PO Q12H Qty: 20 0RF metronidazole 500 mg tablet 500 mg PO Q8H Qty: 30 0RF oxycodone 5 mg Tablet 10 mg PO Q4H PRN (Reason: first line for pain) 10 Days Qty: 12 0RF folic acid 1 mg Tablet 1 mg PO DAILY 30 Days Qty: 30 0RF multivitamin Tablet 1 tablet PO DAILY 30 Days Qty: 30 0RF thiamine HCl (vitamin B1) [Vitamin B-1] 100 mg Tablet 100 mg PO QAM 30 Days Qty: 30 0RF Continued losartan 100 mg tablet 100 mg PO DAILY tadalafil [Cialis] 10 mg tablet 10 mg PO DAILY PRN (Reason: sexual activity) Rx Instructions: administer approximately 30min before sexual activity; do not use more than 1 dose per 24hrs Other Ambulatory Orders: Comprehensive Metabolic Panel (Routine) Timeframe: 1 Week Location: Determined by Patient Ordered By: Krys Benson Date of admission: 08/27/25 11:17 Primary Care Provider: PHYSICIAN,[employer]EV[employer]ORING SUPERINTENDENT Admitting Provider: Natalie Duggan Attending physician on admission: Natalie Duggan Condition: Stable
--- NOTE | 2025-08-31 10:57 | PM.DS ---
DS: Admitting Diagnosis Discharge Date 08/31/2025 Admitting Diagnosis Abdominal pain DS: Discharge Diagnosis Discharge Diagnosis (1) Acute cholecystitis: Code(s): K81.0 - Acute cholecystitis Status: Acute DS: Summary Hospital Course Hospital Course: Discharge Diagnoses: Acute cholecystitis, s/p percutaneous cholecystostomy (K81.0) Alcohol use disorder (F10.90) Hypertension (I10) Thrombocytopenia, likely secondary to infection and liver disease (D69.6) Elevated bilirubin, resolved (R17) Hepatic steatosis (K76.0) Enterocolitis, resolved (K52.9) Weakness, improved (R53.1) History of bowel resection (Z90.49) SIRS, resolved (R65.10) Hyperglycemia, resolved (R73.9) Hospital Course History of Present Illness: 65-year-old male with a history of alcohol use disorder, hypertension, and prior bowel resection presented with acute right upper quadrant abdominal pain, nausea, and diarrhea. He reported drinking approximately 12 beers daily. Initial imaging (CT and RUQ ultrasound) was consistent with acute cholecystitis, with concern for choledocholithiasis and enterocolitis. Labs were notable for hyperbilirubinemia (total bili 4.3 mg/dL), mild thrombocytopenia, and mild transaminitis. He was hypertensive on admission and had a history of chronic hyperbilirubinemia. Hospital Course: Acute Cholecystitis: Managed initially with IV fluids, NPO, and empiric antibiotics (ceftriaxone and metronidazole). General surgery and GI were consulted. Due to worsening pain, fever, leukocytosis, and not being a surgical candidate, he underwent successful ultrasound-guided percutaneous cholecystostomy tube placement on 08/27/25. Post-procedure, his abdominal pain and tenderness improved significantly. Biliary drainage was monitored; cultures were sent. LFTs and bilirubin initially increased (peak bili 9.3), then trended down to 2.6 and finally 1.5 prior to discharge. MRCP was canceled as clinical and laboratory improvement was observed. He was transitioned to a low-fat diet, tolerated oral intake, and was weaned off IV fluids and oxygen. Will require a total of 10 days of antibiotics (discharged on oral amoxicillin/clavulanate per surgery recommendations). Will need follow-up for possible interval cholecystectomy. Alcohol Use Disorder: Last drink was 3 days prior to admission. No evidence of withdrawal during hospitalization. Received thiamine, folic acid, and multivitamin supplementation. Strongly counseled on alcohol cessation. Hypertension: Home losartan was held while NPO; blood pressure managed with IV hydralazine as needed. Blood pressure improved; plan to resume home antihypertensive as outpatient if needed. Thrombocytopenia: Platelets trended down to 117,000, likely secondary to infection and liver disease. No evidence of active bleeding. Elevated Bilirubin: Initially attributed to cholecystitis and possible chronic liver disease. Bilirubin and LFTs improved with source control and antibiotics. Enterocolitis: Suspected on initial CT, resolved with supportive care and antibiotics. Weakness/Unsteady Gait: PT/OT evaluation performed; patient improved but may require short-term rehab depending on discharge planning and family support. Other: SIRS resolved with source control and antibiotics. Hyperglycemia was mild and resolved; HgbA1c checked. Procedures 08/27/25:?Ultrasound-guided percutaneous cholecystostomy tube placement by IR. 50 mL bile sent for culture. Tube to remain in place for at least 3 weeks; follow-up with surgery for possible removal or interval cholecystectomy. Discharge Condition Afebrile, hemodynamically stable, tolerating oral diet, ambulating with assistance, no acute distress. Abdominal pain minimal, cholecystostomy tube in place with appropriate drainage. No evidence of ongoing infection or withdrawal. Labs improved: WBC normalized, bilirubin and LFTs trending down, creatinine normalized. Discharge Medications Amoxicillin/clavulanate (Augmentin)?[dose per pharmacy] PO BID to complete 10-day course (including days in hospital) Acetaminophen 650 mg PO TID PRN?(pain/fever) Oxycodone 5-10 mg PO q4h PRN?(pain) Ondansetron 4 mg PO q4h PRN?(nausea) Pantoprazole 40 mg PO daily?(GI prophylaxis) Thiamine 100 mg PO daily Folic acid 1 mg PO daily Multivitamin PO daily Losartan 100 mg PO daily?(resume if BP elevated) Bowel regimen:?Polyethylene glycol (Miralax) BID, senna at bedtime, bisacodyl daily PRN for constipation Continue home medications as appropriate. Adjust antihypertensive regimen based on outpatient BP monitoring. Discharge Instructions Cholecystostomy Tube Care: Keep tube site clean and dry. Monitor for signs of infection (redness, swelling, pus, fever). Empty drainage bag as instructed. Do not manipulate or remove tube. Follow up with surgery in 2-3 weeks for tube management and discussion of interval cholecystectomy. Diet: Low-fat diet until definitive cholecystectomy or tube removal. Activity: Ambulate with assistance as needed. Continue PT/OT exercises as instructed. Alcohol: Strict abstinence from alcohol. Continue vitamin supplementation. Follow-up: General surgery clinic in 2-3 weeks. Primary care within 1-2 weeks. GI follow-up as needed. PT/OT as recommended. When to Seek Medical Attention: Fever, chills, worsening abdominal pain, jaundice, chest pain, shortness of breath, confusion, bleeding, or any drainage tube issues. Summary Mr. Marin was admitted for acute cholecystitis with sepsis, managed non-operatively with percutaneous cholecystostomy due to surgical risk. He improved clinically and biochemically, and is being discharged in stable condition with a cholecystostomy tube in place, oral antibiotics, and close surgical follow-up. He was monitored for alcohol withdrawal and did not develop symptoms. He is safe for discharge with support and clear instructions. Time Spent with Patient Time attestation: Total time spent providing and/or coordinating discharge services: DS: Data Data Completed and Pending Labs on day of discharge: Labs from last 24 hours 08/31/25 08/31/25 08/31/25 06:41 05:17 00:03 WBC 3.8 L RBC 4.84 Hgb 15.4 Hct 45.4 MCV 93.8 MCH 31.8 MCHC 33.9 RDW 11.9 Plt Count 123 L MPV 8.6 % Immature Plt Fraction 2.0 Sodium 131 L Potassium 3.6 Chloride 104 Carbon Dioxide 25 Anion Gap 2 L BUN 9 D Creatinine 0.87 Estim Creat Clear Calc 78 Estimated GFR > 60 Glucose 110 POC Capillary Glucose 113 H 96 Hemoglobin A1c Calcium 8.2 L Magnesium 2.4 H Total Bilirubin 1.2 AST 37 ALT 47 Alkaline Phosphatase 118 Total Protein 5.5 L Albumin 2.8 L 08/30/25 08/30/25 08/30/25 19:09 12:26 07:45 WBC RBC Hgb Hct MCV MCH MCHC RDW Plt Count MPV % Immature Plt Fraction Sodium Potassium Chloride Carbon Dioxide Anion Gap BUN Creatinine Estim Creat Clear Calc Estimated GFR Glucose POC Capillary Glucose 121 H 115 H Hemoglobin A1c 4.8 Calcium Magnesium Total Bilirubin AST ALT Alkaline Phosphatase Total Protein Albumin Preliminary micro results at discharge 08/27/25 12:41 Fungal Culture - Preliminary Gallbladder Fluid 08/25/25 06:57 Blood Culture - Preliminary Blood 08/25/25 06:35 Blood Culture - Preliminary Blood Discharge Plan Discharge Attending physician on discharge: Tiffanie Almaguer Consulting providers: Jose Watson; Angela Baker; Maria C Blake; Clair Preston Discharging Clinician: Tiffanie Almaguer Anticipated Discharge Date/Time: 08/31/25 10:51 Patient Disposition: Home Activity: as tolerated Diet: as tolerated and diabetic Discharge Instructions: No showering while drain is in place. Sponge bathing is fine. Keep the area clean and dry and change the gauze bandage daily or when saturated. If you notice a complete stop in drain output or deven bright red blood in the bag call the general surgery office. Call the general surgery office at [phone] to schedule a follow-up appointment for [address] Preston. Antibiotics have been sent to your pharmacy. Please pick these up and take as prescribed. Please obtain lab work 1-2 days prior to your appointment with Dr. Preston. Patient Instructions: Antibiotic Form, Cholecystitis (GEN), Low Fat Diet (GEN) Patient Language: Italian Stand Alone Forms: General Discharge Information Follow-up/Referrals: Clair Preston MD [Physician, General Surgery] - Call for Appointment Referral Note: 2 weeks. PHYSICIAN,LIEUTENANT BALLISTICS [Primary Care Provider, Internal Medicine] Referral Note: F/u with PCP in 3- 5 days Brenton Perez MD [Physician, Gastroenterology] Referral Note: F/u with GI as instructed Discharge Medications: New amoxicillin-pot clavulanate 875-125 mg tablet 1 tablet PO Q12H Qty: 20 0RF metronidazole 500 mg tablet 500 mg PO Q8H Qty: 30 0RF oxycodone 5 mg Tablet 10 mg PO Q4H PRN (Reason: first line for pain) 10 Days Qty: 12 0RF folic acid 1 mg Tablet 1 mg PO DAILY 30 Days Qty: 30 0RF multivitamin Tablet 1 tablet PO DAILY 30 Days Qty: 30 0RF thiamine HCl (vitamin B1) [Vitamin B-1] 100 mg Tablet 100 mg PO QAM 30 Days Qty: 30 0RF Continued losartan 100 mg tablet 100 mg PO DAILY tadalafil [Cialis] 10 mg tablet 10 mg PO DAILY PRN (Reason: sexual activity) Rx Instructions: administer approximately 30min before sexual activity; do not use more than 1 dose per 24hrs Other Ambulatory Orders: Comprehensive Metabolic Panel (Routine) Timeframe: 1 Week Location: Determined by Patient Ordered By: Krys Benson Date of admission: 08/27/25 11:17 Primary Care Provider: PHYSICIAN,LIEUTENANT BALLISTICS Admitting Provider: Natalie Duggan Attending physician on admission: Natalie Duggan Condition: Stable
[2025-08-31] MEDS: PANTOPRAZOLE 40 MG TABLET PO (12:05)
== END 2025-08-31 15:15 | disposition home or self-care (01) | DRG 409 ==
LOC: ANHED 07:55 → ANHIMU 11:25 → ANH3MEDSUR 08-29 22:49
PROVIDERS: Nurse Practitioner Acute Care; Nurse Practitioner Family; Admitting Provider Internal Medicine; Emergency Provider Student in an Organized Health Care Education/Training Program; Visit Provider Internal Medicine
DX: K81.0 Acute cholecystitis (principal); E87.1 Hypo-osmolality and hyponatremia; K52.9 Noninfective gastroenteritis and colitis, unspecified; D69.6 Thrombocytopenia, unspecified; K76.0 Fatty (change of) liver, not elsewhere classified; I10 Essential (primary) hypertension; F10.10 Alcohol abuse, uncomplicated; R73.9 Hyperglycemia, unspecified; Z87.891 Personal history of nicotine dependence; Z90.49 Acquired absence of other specified parts of digestive tract; Z87.19 Personal history of other diseases of the digestive system
CPT/HCPCS: 36415; 47490; 71045; 74174; 76705; 80053; 80061; 80074; 81001; 82077; 82948; 83036; 83605; 83690; 83735; 83880; 84484; 85025; 85027; 85055; 85610; 85730; 86140; 87040; 87070; 87075; 87205; 93005; 96365; 96375; 97162; 97165; 97535; 99285; A9270; J0360; J0696; J1171; J1836; J2405; J2470; J2560; J3360; J3411; J7030; Q9967